=== PATIENT | female | born 1955 | race Two or more races ===

== ENCOUNTER 2024-09-30 11:46 | Inpatient (IN) | payer MEDICARE, MEDICAID, SELFPAY ==
[2024-09-30] VITALS (8 sets, daily range): BP systolic 121–147; BP diastolic 52–80; PULSE 66–90; RESP 15–100; TEMP 36.7–37.2; O2SAT 95–100; BMI 30.9; BMI 31.6
--- NOTE | 2024-09-30 12:07 | XR_ITS ---
Examination: Knee, right , 3 views Technique: Knee AP, lateral, oblique 3 views Date and time of exam: August 30, 2025 1213 hours Comparison July 16, 2023 INDICATIONS: Right knee pain 6 years. 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
--- NOTE | 2024-09-30 12:08 | PD.EDRME ---
Rapid Medical Screening Exam E Arrival date/time: 09/30/24 11:46 69-year-old female with a history of hypertension presents to the emergency room with a chief complaint of a wound to her right knee that is draining pus and very warm to the touch. Patient states that this has been going on for the last 3 days and has progressively gotten worse. Patient states she had a knee replacement done in 2018 to the area and this is her second episode in the last year that this has occurred. I have greeted and performed a focused initial assessment of this patient. A comprehensive ED assessment and evaluation of the patient, analysis of all test results, and completion of the medical decision making process will be conducted by additional ED providers. Chief Complaint: Skin/Abscess/Foreign Body Time Seen by Provider: 09/30/24 11:54 Vital signs: Vital Signs Temperature 98.4 F 09/30/24 12:00 Pulse Rate 70 09/30/24 12:00 Respiratory Rate 18 09/30/24 12:00 Blood Pressure 129/77 09/30/24 12:00 Pulse Oximetry (%) 98 09/30/24 12:00 Oxygen Delivery Method Room Air 09/30/24 12:00 Vital signs reviewed by provider: Yes
[2024-09-30 12:38] LABS: Lactate (Lactic Acid) 0.8 mMol/L (0.4-2.0)
[2024-09-30 12:40] LABS: Basophils % (Auto) 0 % (0-2.5); Eosinophils # (Auto) 0.2 Thou/mm3 (0.0-0.5); Eosinophils % (Auto) 1 % (0-10); Hematocrit 26.1 % (36.0-46.0); Immature Granulocytes % (Auto) 1 % (0-0); Immature Granulocytes Auto 0.11 Thou/mm3 (0.00-0.00); Lymphocytes # (Auto) 1.6 Thou/mm3 (1.0-4.8); Lymphocytes % (Auto) 8 % (10-50); Mean Corpuscular HGB Conc 31.4 g/dl (31.0-37.0); Mean Corpuscular Volume 89 fL (80-100); Monocytes # (Auto) 1.4 Thou/mm3 (0.0-0.8); Monocytes % (Auto) 7 % (0-12); Neutrophils # (Auto) 16.8 Thou/mm3 (1.8-7.7); Neutrophils % (Auto) 84 % (37-80); Nucleated Red Blood Cell % 0 /100 WBC (0); Platelet Count 408 Thou/mm3 (140-440); RDW Standard Deviation 43.9 fL (36.4-46.3); Red Blood Count 2.93 Miln/mm3 (4.00-5.20); White Blood Count 20.1 Thou/mm3 (3.6-11.0)
[2024-09-30 12:41] LABS: Hemoglobin 8.2 g/dL (12.0-16.0)
[2024-09-30] MEDS: CLINDAMYCIN/NS 600 MG IVPB 600 MG/50 ML BAG 100 MG IV (12:51)
[2024-09-30 13:07] LABS: Alanine Aminotransferase 20 U/L (10-49); Albumin, Serum 3.7 gm/dL (3.4-4.8); Albumin/Globulin Ratio 1.2 (1.2-2.2); Alkaline Phosphatase 126 U/L (46-116); Anion Gap 7 (7-16); Aspartate Amino Transferase 20 U/L (0-34); BUN/Creatinine Ratio 36 Ratio (12-20); Bilirubin,Total 0.2 mg/dL (0.3-1.2); Blood Urea Nitrogen 18 mg/dL (9-23); Calcium 9.5 mg/dL (8.3-10.6); Calcium (Corrected) 9.7 mg/dL (8.5-10.1); Carbon Dioxide 28.5 mMol/L (20.0-31.0); Chloride 107 mMol/L (98-107); Creatinine (Component) 0.5 mg/dL (0.6-1.3); Estimated Creatinine Clearance 92.5 mL/min (>60); Globulin 3.2 gm/dL (2.3-3.5); Glucose 96 mg/dL (74-106); Osmolality,Calculated 285 (275-295); Potassium 3.6 mMol/L (3.4-5.1); Procalcitonin 0.17 ng/ml (0.0-0.49); Sodium 142 mMol/L (136-145); Total Protein 6.9 gm/dL (5.7-8.2); eGFR > 60 See Note
--- NOTE | 2024-09-30 16:12 | PD.EDADULT ---
ED General RME/HPI General Chief complaint: Skin/Abscess/Foreign Body Stated complaint: sent by pmd for abscess to right knee Time Seen by Provider: 09/30/24 11:54 Arrival date/time: 09/30/24 11:46 CC: Redness pus and pain to the right knee HPI patient had a knee replaced [place] [address] Teresa, this is his second episode of an abscess on the knee in 6 months. The patient developed a pus pocket to the lateral aspect of the knee, today it is open and draining. Family members and patient deny fever but the pain is a 6 to an 8 on a 10 scale. Previous episode in April 2024 patient was seen by PCP started on antibiotics and after 3 weeks it spontaneously resolved. Patient's case discussed with Dr. Silva, resident for Dr. Goddard, agrees to accept the patient for admission. Dr Pascual will consult RME / HPI RME / HPI narrative: 09/30/24 11:46 69-year-old female with a history of hypertension presents to the emergency room with a chief complaint of a wound to her right knee that is draining pus and very warm to the touch. Patient states that this has been going on for the last 3 days and has progressively gotten worse. Patient states she had a knee replacement done in 2018 to the area and this is her second episode in the last year that this has occurred. I have greeted and performed a focused initial assessment of this patient. A comprehensive ED assessment and evaluation of the patient, analysis of all test results, and completion of the medical decision making process will be conducted by additional ED providers. Related Data Home Medications ?Medication ?Instructions ?Recorded ?Confirmed calcium carbonate (Calcium 600) 600 mg PO BID 04/18/18 03/01/23 methocarbamol 500 mg tablet 500 mg PO BID 04/18/18 03/01/23 clonidine HCl 0.1 mg tablet 0.1 mg PO BID 07/25/18 03/01/23 benazepril 20 mg tablet 20 mg PO BID 01/16/23 03/01/23 Previous Rx's ?Medication ?Instructions ?Recorded ibuprofen 800 mg tablet 800 mg PO Q8H PRN Pain 14 days #28 01/21/23 tabs Allergies Allergy/AdvReac Type Severity Reaction Status Date / Time No Known Allergies Allergy Verified 09/30/24 11:49 Review of Systems Review of Systems Narrative Review of Systems: GEN: No fever, no chills, no weight loss EYES: No discharge, no visual changes, no pain HEENT: No ear pain, no congestion, no sore throat PULM: No shortness of breath, no cough, no congestion CV: No chest pain, no dyspnea on exertion, no palpitations GI: No nausea, no vomiting, no diarrhea, no pain, no constipation : No frequency, no urgency, no dysuria MUSC/SKEL: No joint pain, no back pain SKIN: No rash PSYCH: No hallucinations, no depression HEME/LYMPH: No easy bleeding or bruising tendencies NEURO: No weakness, no headache Past Medical History Past Medical History NEUROLOGIC: Negative Neurological Disorders or Seizures CARDIAC: Positive Cardiac Disorders and Hypertension; Negative Hypercholesterolemia or Congestive Heart Failure RESPIRATORY: Negative Chronic Obstructive Pulmonary Disease (COPD) GASTROINTESTINAL: Positive Gastroesophageal Reflux Disease; Negative Gastrointestinal Disorders GENITOURINARY: Negative Genitourinary Disorders or Renal Disease REPRODUCTIVE: Positive Previous Pregnancies MUSCULOSKELETAL: Positive Musculoskeletal Disorders, Arthritis and Fractures ENDOCRINE: Negative Endocrine Disorders, Diabetes Mellitus Type 1 or Diabetes Mellitus Type 2 HEMATOLOGIC: Negative Blood Disorders OTHER HISTORY: Negative Autoimmune Disease, Blood Transfusions, Blood Transfusion Reaction or Anesthesia Reactions Family History FAMILY HISTORY: Positive Family Cardiac Disorders, Family Endocrine Disorders and Family Surgery; Negative Family Psychiatric Problems, Family Respiratory Disorders, Family Gastrointestinal Problems, Family Cancer or Family Anesthesia Reaction Surgical History SURGICAL: Positive Tubal Ligation and Section; Negative Cardiac Surgery Social History SMOKING STATUS: Never smoker ED Exam Narrative Physical exam: [General: Obese not in any acute distress Head normocephalic HEENT: Within acceptable limits Neck is supple nontender Chest equal chest rise nontender to palpation Respiratory: Clear to auscultation no wheezes crackles or rubs CV: Rate rhythm is regular no murmurs rubs or clicks Abdomen is distended secondary to body habitus soft nontender no masses positive bowel sounds all 4 quadrants Back: No CVA tenderness no spinous process tenderness from cervical spine thoracic and lumbar spine Skin: Right knee, lateral aspect there is a 1 cm diameter opening with expression was able to express 20+ cc of exudative serous fluid no bleeding. Surrounding area is not warm to touch erythema extends from the site distally to the ankle noncircumferential to the lower extremity. Otherwise skin is intact no petechiae rash induration ulceration or crepitus Extremities: Moving all extremity against resistance cap refill less than 2 seconds neurosensory intact. Good range of motion of the knee. Skin overlying the patella is not erythematous and nonedematous and not warm to touch. Neuro: Awake alert oriented x3 Glascow coma 15 no focal deficits] Course Course Course Narrative: Patient's case, laboratory results, clinical disposition, imaging discussed with Dr. Pascual, surgeon of the knee replacement, who agrees to consult on the patient he wants the patient admitted to the hospital started on antibiotics. Quality Measures none Orders Category Date Time Status Consult to Orthopedic Stat Cons 09/30/24 16:32 Ordered XR knee RT 3V Stat Exams 09/30/24 12:07 Completed Blood Culture (Lab) Stat Lab 09/30/24 12:18 Received Body Fld Culture & Gram Stain Stat Lab 09/30/24 16:35 Ordered CBC Stat Lab 09/30/24 12:24 Completed CMP [Comprehensive Metabolic Panel] Stat Lab 09/30/24 12:24 Completed Lactate (Lactic Acid) Stat Lab 09/30/24 12:24 Completed MRSA Nasal Screen Stat Lab 09/30/24 17:10 Received PT [Prothrombin Time with INR] Stat Lab 09/30/24 12:24 Completed PTT [Partial Thromboplastin Time] Stat Lab 09/30/24 12:24 Completed Procalcitonin Stat Lab 09/30/24 12:24 Completed Wound Culture and Gram Stain Stat Lab 09/30/24 17:10 Received Clindamycin/Ns 600 mg Ivpb [Cleocin/Ns Ivpb] Med 09/30/24 12:10 Discontinued 600 mg in 50 ml IV X1 Piper/Tazo Inj [Zosyn Inj] 3.375 gm Med 09/30/24 16:35 Discontinued Sodium Chloride 0.9% (P) [Ns 0.9% (P)] 50 ml IV X1 Vital Signs Vital signs: Vital Signs Temperature 98.4 F 09/30/24 12:00 Pulse Rate 70 09/30/24 12:00 Respiratory Rate 18 09/30/24 12:00 Blood Pressure 129/77 09/30/24 12:00 Pulse Oximetry (%) 98 09/30/24 12:00 Oxygen Delivery Method Room Air 09/30/24 12:00 [facility] Patient data External records reviewed:: [facility] previous records Clinical information provided by:: patient and family Social determinants that could affect healthcare access:: none Patient has the following chronic illnesses:: None How is presenting disease/condition affected by chronic disease/condition?: uneffected by Evaluation data The following diagnostics were reviewed and interpreted by me:: lab results and radiology exam(s) Lab and/or radiology exams considered but not ordered:: CBC shows leukocytosis 20,100 H&H of 8.2 26.1 with platelets of 408 CMP shows a sodium 142 potassium 3.6 chloride 107 CO2 of 28.5 BUN of 18 creatinine 0.5 with a glucose of 96 Lactic is 0.8 Pro-Tyler of 0.17. X-ray of the knee as interpreted by me read by radiology shows internal loosening of the femoral condyle prosthesis. Lactic and Pro-Tyler are unremarkable Interpretation Summary: Knee abscess knee cellulitis Medications Medications considered but not ordered:: None Medication administrations:: Medication Administration History Acetaminophen (Acetaminophen 325 Mg Tablet) 650 mg PO Q6H PRN PRN Reason: pain and Fever >100.4 Stop: 10/30/24 17:03 Hydrocodone Bitart/Acetaminophen (Hydrocodone/Apap 5/325 Tablet) 1 tab PO Q4HR PRN PRN Reason: PAIN SCALE 4-10(Mod-Sev Stop: 10/05/24 17:03 Last Admin: 09/30/24 17:58 Dose: 1 tab Documented By: GM Heparin Sodium (Porcine) (Heparin Sod Inj 5000 Unit/Ml Vial) 5,000 unit SC Q8HR [facility] Stop: 10/14/24 21:59 Piperacillin/Tazobactam/Dextrose (Zosyn) 50 mls @ 12.5 mls/hr IV Q8HR [facility] Stop: 10/07/24 21:59 Losartan Potassium (Losartan Potassium 25 Mg Tablet) 25 mg PO QDAY [facility] Stop: 10/30/24 18:14 Last Admin: 09/30/24 18:16 Dose: 25 mg Documented By: GM Ondansetron HCl (Ondansetron Inj 2 Mg/Ml Inj 2 Ml) 4 mg IV Q6H PRN; Protocol PRN Reason: NAUSEA OR VOMITING Stop: 10/30/24 17:03 Pharmacy Consult (Vancomycin Pharmacy To Dose 1 Each Each) 1 each IV QDAY [facility] Stop: 10/30/24 17:14 Sennosides (Senna Tablet) 1 tab PO QDAY PRN; Protocol PRN Reason: constipation Stop: 10/30/24 17:03 Discontinued Medications Clindamycin/Sodium Chloride (Cleocin/Ns Ivpb) 600 mg in 50 mls @ 100 mls/hr IV X1 ONE Stop: 09/30/24 12:39 Last Infusion: 09/30/24 16:09 Dose: Infused Documented By: Admin: 09/30/24 12:51 Dose: 100 mls/hr Documented By: ROSEMARIE Piperacillin Sod/Tazobactam (Sod 3.375 gm/ Sodium Chloride) 50 mls @ 100 mls/hr IV X1 ONE Stop: 09/30/24 17:04 Last Infusion: 09/30/24 18:00 Dose: Infused Documented By: Admin: 09/30/24 17:06 Dose: 100 mls/hr Documented By: REGGIE Vancomycin HCl 1,500 mg/ (Sodium Chloride) 500 mls @ 200 mls/hr IV X1 ONE Stop: 09/30/24 20:14 Last Admin: 09/30/24 21:08 Dose: 10 mg/min, 200 mls/hr Documented By: Morphine Sulfate (Morphine Sulf Inj 10 Mg/Ml Vial) 1 mg IVP X1 ONE Stop: 09/30/24 19:42 None Consultations Consultation(s) initiated? (list below): No Diagnosis Differential Diagnosis ED Complaint MDM: Septic arthritis knee abscess knee cellulitis Most likely diagnosis given after review of the tests above:: Knee abscess knee cellulitis Admission Indicated Admission indicated?: indicated Explain why admission is indicated or not indicated:: Further medical management Admission Request Was there a request for admission?: No Disposition Plan Disposition Plan: Admit Medical Decision Making Differential Diagnosis Differential Diagnosis: Septic arthritis knee abscess knee cellulitis Lab Data 09/30/24 12:24 09/30/24 12:24 Labs: Lab Results 09/30/24 Range/Units 12:24 WBC 20.1 H (3.6-11.0) Thou/mm3 RBC 2.93 L (4.00-5.20) Miln/mm3 Hgb 8.2 L (12.0-16.0) g/dL Hct 26.1 L (36.0-46.0) % MCV 89 (80-100) fL MCH 28.0 (25.0-35.0) pg MCHC 31.4 (31.0-37.0) g/dl RDW Std Deviation 43.9 (36.4-46.3) fL Plt Count 408 (140-440) Thou/mm3 Neut % (Auto) 84 H (37-80) % Lymph % (Auto) 8 L (10-50) % [place] % (Auto) 7 (0-12) % Eos % (Auto) 1 (0-10) % Baso % (Auto) 0 (0-2.5) % Neut # (Auto) 16.8 H (1.8-7.7) Thou/mm3 Lymph # (Auto) 1.6 (1.0-4.8) Thou/mm3 [place] # (Auto) 1.4 H (0.0-0.8) Thou/mm3 Eos # (Auto) 0.2 (0.0-0.5) Thou/mm3 Baso # (Auto) 0.0 (0.0-0.2) Thou/mm3 Immature Gran # (Auto) 0.11 H (0.00-0.00) Thou/mm3 Absolute Nucleated RBC 0.00 (0.00-0.00) Thou/mm3 Immature Gran % 1 H (0-0) % Nucleated RBC % 0 (0) /100 WBC PT 11.1 (9.0-12.2) Seconds INR 1.0 (0.9-1.3) APTT 30.6 (22.0-36.0) Seconds Sodium 142 (136-145) mMol/L Potassium 3.6 (3.4-5.1) mMol/L Chloride 107 (98-107) mMol/L Carbon Dioxide 28.5 (20.0-31.0) mMol/L Anion Gap 7 (7-16) BUN 18 (9-23) mg/dL Creatinine 0.5 L (0.6-1.3) mg/dL Estim Creat Clear Calc 92.5 (>60) mL/min eGFR > 60 (60 - ) See Note BUN/Creatinine Ratio 36 H (12-20) Ratio Glucose 96 (74-106) mg/dL Calculated Osmolality 285 (275-295) Lactic Acid 0.8 (0.4-2.0) mMol/L Calcium 9.5 (8.3-10.6) mg/dL Corrected Calcium 9.7 (8.5-10.1) mg/dL Total Bilirubin 0.2 L (0.3-1.2) mg/dL AST 20 (0-34) U/L ALT 20 (10-49) U/L Alkaline Phosphatase 126 H (46-116) U/L Total Protein 6.9 (5.7-8.2) gm/dL Albumin 3.7 (3.4-4.8) gm/dL Globulin 3.2 (2.3-3.5) gm/dL Albumin/Globulin Ratio 1.2 (1.2-2.2) Procalcitonin 0.17 (0.0-0.49) ng/ml Discharge Plan Plan Patient Disposition: Admit Acute Care w/in Hospital Problem List Clinical Impression: Abscess of knee, left PA/LITHOGRAPHIC PRESS OPERATOR Supervising Physician PA/LITHOGRAPHIC PRESS OPERATOR Supervising Physician: Marvin Phan ENP
[2024-09-30 16:55] LABS: Partial Thromboplastin Time 30.6 Seconds (22.0-36.0); Prothrombin Time 11.1 Seconds (9.0-12.2)
[2024-09-30] MEDS: PIPER/TAZO INJ 3.375 GM in SODIUM CHLORIDE 0.9% (P) 50 ML IV (17:06)
--- NOTE | 2024-09-30 17:11 | ESHP_ITS ---
Documentation for date of: 09/30/24 HPI History of Present Illness Chief complaint: R knee pain, swelling, discharge History of present illness: 69-year-old female with past medical history of prior right knee replacement, hypertension, arthritis, ventral hernias, and chronic anemia is admitted to the hospital on 09/30/2024 after coming to the ED with complaints of right knee pain as well as swelling and draining pus. On assessment patient stated that her right knee began to hurt around 24 September and since then it has gotten very swollen and red. On Sunday she noticed that it created like an abscess as it was more swollen on the lateral aspect and yesterday the abscess popped and started draining thick yellowish-reddish fluid. She denied any trauma during this time or even prior to this. She saw her primary care physician today who recommended her to come to the ED. Patient also mentioned that she had 1 prior episode similar to this in April of last year and at this time she was prescribed antibiotics by her primary care physician and the abscess resolved in 3 weeks. She endorses some chills which were due to cold, but denied any fevers, cough, shortness of breath, sweats, or chest pain. Of note, patient stated that ever since she got right knee replacement 2018 that she has not been able to walk normally that she thinks something is wrong for her knee. ED course: Initially was afebrile and normotensive. Initial labs were relevant for leukocytosis (20.1) and anemia (8.2). 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 ED physician consulted orthopedic surgeon who stated he would see the patient. PMH: As above Social Hx: Denies any alcohol, smoking, or drugs Surgical Hx: Right knee replacement Review of Systems Review of Systems Narrative Review of Systems: Constitutional: Denies sweats, Denies weight loss/gain, Denies fever, Admits chills. HEENT: Denies hearing loss, Denies ear pain, Denies postnasal drip, Denies double vision, Denies blurry vision. Respiratory: Denies shortness of breath, Denies cough, Denies wheezing. Cardiovascular: Denies chest pain, Denies palpitations, Denies sudden loss of consciousness. GI: Denies blood in stool, Denies constipation, Denies abdominal pain, Denies difficulty swallowing, Denies nausea or vomit. : Denies urinary incontinence, Denies pain while urinating, Denies increased urinary frequency. MSK: Admits joint pain, Admits joint swelling, Denies numbness. Skin: Denies rash, Denies itching, Denies easy bruising. Neuro: Denies headaches, Denies dizziness, Denies seizures. Past Medical History Past Medical History NEUROLOGIC: Negative Neurological Disorders or Seizures CARDIAC: Positive Cardiac Disorders and Hypertension; Negative Hypercholesterolemia or Congestive Heart Failure RESPIRATORY: Negative Chronic Obstructive Pulmonary Disease (COPD) GASTROINTESTINAL: Positive Gastroesophageal Reflux Disease; Negative Gastrointestinal Disorders GENITOURINARY: Negative Genitourinary Disorders or Renal Disease REPRODUCTIVE: Positive Previous Pregnancies MUSCULOSKELETAL: Positive Musculoskeletal Disorders, Arthritis and Fractures ENDOCRINE: Negative Endocrine Disorders, Diabetes Mellitus Type 1 or Diabetes Mellitus Type 2 HEMATOLOGIC: Negative Blood Disorders OTHER HISTORY: Negative Autoimmune Disease, Blood Transfusions, Blood Transfusion Reaction or Anesthesia Reactions Family History FAMILY HISTORY: Positive Family Cardiac Disorders, Family Endocrine Disorders and Family Surgery; Negative Family Psychiatric Problems, Family Respiratory Disorders, Family Gastrointestinal Problems, Family Cancer or Family Anesthesia Reaction Surgical History SURGICAL: Positive Tubal Ligation and Section; Negative Cardiac Surgery Social History SMOKING STATUS: Never smoker Exam Vital Signs Temp Pulse Resp BP Pulse Ox O2 Del Method 98.9 F 66 16 138/80 H 100 Room Air 09/30/24 15:47 09/30/24 15:47 09/30/24 15:47 09/30/24 15:47 09/30/24 15:47 09/30/24 15:47 Narrative Exam General: A/O x3, no acute distress, well-nourished, well-developed Eyes: PERRL, EOMI. Anicteric, vision grossly intact. Ears: No ear pain, no ear discharge, Hearing grossly intact. Nose: No nasal discharge. Mouth/Throat: Dry mucous membranes, no redness, no lesions. Neck: Neck supple, non-tender, no cervical lymphadenopathy. Lungs: Clear VARUN to auscultation and percussion, No accessory muscle use. Cardio: Normal S1/S2, regular rhythm, systolic murmur, no JVD Abdomen: Soft, non-tender, no palpable masses, peristalsis present, no guarding or rebound. Extremities: Symmetrical, no significant deformities, no peripheral edema , RLE tender to touch, peripheral pulses presents. R LE swollen from lower thigh to lower calf area. R LE warm to touch, open wound with serosangineous drainage in Lateral aspect of knee around 1 cm in diameter. Skin: No rashes, no lesions, warm to touch. Neuro: No focal neurological deficits. motor and sensory intact Psych: Cooperative, appropriate mood and effect. Results: Labs 09/30/24 12:24 09/30/24 12:24 Labs: Short CBC 09/30/24 Range/Units 12:24 WBC 20.1 H (3.6-11.0) Thou/mm3 Hgb 8.2 L (12.0-16.0) g/dL Hct 26.1 L (36.0-46.0) % Plt Count 408 (140-440) Thou/mm3 BMP 09/30/24 12:24 Sodium 142 Potassium 3.6 Chloride 107 Carbon Dioxide 28.5 BUN 18 Creatinine 0.5 L Glucose 96 Calcium 9.5 Liver Function 09/30/24 Range/Units 12:24 Total Bilirubin 0.2 L (0.3-1.2) mg/dL AST 20 (0-34) U/L ALT 20 (10-49) U/L Alkaline Phosphatase 126 H (46-116) U/L Albumin 3.7 (3.4-4.8) gm/dL Quality Measures Quality Measures VTE prophylaxis Advance care planning discussed with:: patient Medications Home Medications and Allergies Home Medications ?Medication ?Instructions ?Recorded ?Confirmed ?Type calcium carbonate (Calcium 600) 600 mg PO BID 04/18/18 03/01/23 History methocarbamol 500 mg tablet 500 mg PO BID 04/18/18 03/01/23 History clonidine HCl 0.1 mg tablet 0.1 mg PO BID 07/25/18 03/01/23 History benazepril 20 mg tablet 20 mg PO BID 01/16/23 03/01/23 History Allergies Allergy/AdvReac Type Severity Reaction Status Date / Time No Known Allergies Allergy Verified 09/30/24 11:49 Visit Medications Acetaminophen (Acetaminophen 325 Mg Tablet) 650 mg PO Q6H PRN PRN Reason: pain and Fever >100.4 Stop: 10/30/24 17:03 Hydrocodone Bitart/Acetaminophen (Hydrocodone/Apap 5/325 Tablet) 1 tab PO Q4HR PRN PRN Reason: PAIN SCALE 4-10(Mod-Sev Stop: 10/05/24 17:03 Heparin Sodium (Porcine) (Heparin Sod Inj 5000 Unit/Ml Vial) 5,000 unit SC Q8HR OPAL Stop: 10/14/24 21:59 Piperacillin Sod/Tazobactam (Sod 4.5 gm/ Sodium Chloride) 100 mls @ 200 mls/hr IV Q6H [facility] Stop: 10/07/24 21:59 Ondansetron HCl (Ondansetron Inj 2 Mg/Ml Inj 2 Ml) 4 mg IV Q6H PRN; Protocol PRN Reason: NAUSEA OR VOMITING Stop: 10/30/24 17:03 Pharmacy Consult (Vancomycin Pharmacy To Dose 1 Each Each) 1 each IV QDAY OPAL Stop: 10/30/24 17:14 Sennosides (Senna Tablet) 1 tab PO QDAY PRN; Protocol PRN Reason: constipation Stop: 10/30/24 17:03 Discontinued Medications Clindamycin/Sodium Chloride (Cleocin/Ns Ivpb) 600 mg in 50 mls @ 100 mls/hr IV X1 ONE Stop: 09/30/24 12:39 Last Infusion: 09/30/24 16:09 Dose: Infused Piperacillin Sod/Tazobactam (Sod 3.375 gm/ Sodium Chloride) 50 mls @ 100 mls/hr IV X1 ONE Stop: 09/30/24 17:04 Last Admin: 09/30/24 17:06 Dose: 100 mls/hr Assessment & Plan Plan 69-year-old female with past medical history of prior right knee replacement, hypertension, arthritis, ventral hernias, and chronic anemia is admitted to the hospital on 09/30/2024 for R knee abscess. #Right knee abscess #Leukocytosis #History of right knee replacement ? Initially patient started having pain around 24 September and then she developed swelling as well as drainage of thick yellowish fluid. ?Patient had prior total knee replacement in 2017 which could indicate that there could be bacterial seeding in the metal artifacts. ? Prior episode of abscess in April, was prescribed oral antibiotics and resolved in 3 weeks. ? WBC 20.1 at admission ? Lactic acid 0.7 ? 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 Started vancomycin and Zosyn [09/30/2024?] ? Blood cultures and wound cultures ordered ? Wound care ordered ?Patient will be n.p.o. after midnight in case of procedure ? Orthopedic surgeon consulted, appreciate recommendations #Chronic normocytic normochromic anemia ?Patient has baseline hemoglobin of around 10. ?Per patient she takes iron due to anemia ? Hemoglobin this admission is 8.2 ?no active signs of bleeding. Plan: ? Will transfuse hemoglobin less than 7 ? Will continue to monitor #Hx of hypertension ? Patient's blood pressure on admission is 129/77 ? Current blood pressure is 147/72 ? Patient takes clonidine 0.1 mg at home Plan: ? Start patient on losartan 25 mg daily ?Will monitor for rebound hypertension and if it does develop we will restart patient's clonidine ? Will continue to monitor Disposition: Patient admitted to [facility]. Diet: NPO midnight GI prophylaxis: not indicated DVT prophylaxis: heparin sc Code:Full Case disclosed with Attending Dr. Goddard and My senior Dr. Silva PGY2. Abram Thorne PGY1 Senior Resident Attestation: The patient is a 69 YO F with PMH of Rt knee replacement in [address] Braun in [facility], HTN, ventral hernias and chronic anemia presented with c/c of rt knee pus drainage. She had similar episode 6 months back and was treated with oral antibiotics by her PCP. In the ED BCx and Pus Cx were sent. She was started on vanc and zosyn, and Ortho Dr. Braun will be consulted. I discussed with and supervised the internal medicine nurse practitioner physician involved in the care of this patient. I personally saw and examined the patient and discussed the assessment and plan with the entire medicine team, including my attending. I agree with the assessment and plan as documented above. Roger Silva MD PGY2 Internal Medicine Attending Provider Attestation/Addendum I reviewed labs, imaging, EKG, home medications and prior available records. Face to face evaluation was performed by me. I have personally examined the patient and discussed assessment and plan with the IM team. I reviewed the resident note and agree with the plan with exceptions as below. Right knee septic arthritis Right lower extremity cellulitis Leukocytosis History of right knee replacement Primary hypertension Start vancomycin and Zosyn N.p.o. after midnight for I&D and possible removal of the artificial joint Consulted orthopedic surgery Dr. Braun Management of pain as needed
--- NOTE | 2024-09-30 17:19 | PC.NURSE ---
PT GIVEN TURKEY SANDWICH AND APPLE JUICE AND WATER AT THIS TIME; PT NPO AFTER MIDNIGHT.
--- NOTE | 2024-09-30 17:20 | PC.NURSE ---
Kina called and made aware pt's vancomycin med order is not available in ED pyxis. Per pharmacy, will bring down med soon.
[2024-09-30] MEDS: HYDROcodone/APAP 5/325 TABLET 1 TAB PO (17:58)
--- NOTE | 2024-09-30 18:05 | PC.NURSE ---
Attempted to call report for SBAR report to Livier CANTOR; Livier CANTOR unavailable at this time.
[2024-09-30] MEDS: LOSARTAN POTASSIUM 25 MG TABLET PO (18:16)
--- NOTE | 2024-09-30 18:30 | PC.NURSE ---
Received Hand off Report from ED nurse Sagar at 18:15. Received in report that pt did not receive the ordered Vancomycin due to it not being available in the ED.
[2024-09-30] MEDS: Vancomycin Inj 1,500 MG in SODIUM CHLORIDE 0.9% 500 ML 500 ML 200 MG IV (21:08)
[2024-09-30] MEDS: HEPARIN SOD INJ 5000 UNIT/ML VIAL SC (22:52)
[2024-09-30] MEDS: MORPHINE SULF INJ 10 MG/ML VIAL IVP (22:59)
[2024-09-30] MEDS: PIPER/TAZO 3.375 GM 50 ML IV (23:22)
[2024-10-01] VITALS (9 sets, daily range): BP systolic 102–163; BP diastolic 67–90; PULSE 68–78; RESP 16–98; TEMP 36.3–38.1; O2SAT 93–99
[2024-10-01] MEDS: HYDROcodone/APAP 5/325 TABLET 1 TAB PO ×2 (00:01→11:12)
[2024-10-01] MEDS: PIPER/TAZO 3.375 GM 50 ML IV ×3 (05:18→22:47)
[2024-10-01 05:57] LABS: Basophils # (Auto) 0.1 Thou/mm3 (0.0-0.2); Basophils % (Auto) 0 % (0-2.5); Eosinophils # (Auto) 0.2 Thou/mm3 (0.0-0.5); Eosinophils % (Auto) 2 % (0-10); Hematocrit 22.5 % (36.0-46.0); Immature Granulocytes % (Auto) 1 % (0-0); Immature Granulocytes Auto 0.08 Thou/mm3 (0.00-0.00); Lymphocytes # (Auto) 1.7 Thou/mm3 (1.0-4.8); Lymphocytes % (Auto) 13 % (10-50); Mean Corpuscular HGB Conc 31.1 g/dl (31.0-37.0); Mean Corpuscular Hemoglobin 27.3 pg (25.0-35.0); Mean Corpuscular Volume 88 fL (80-100); Monocytes % (Auto) 8 % (0-12); Neutrophils # (Auto) 10.3 Thou/mm3 (1.8-7.7); Neutrophils % (Auto) 77 % (37-80); Nucleated Red Blood Cell % 0 /100 WBC (0); Platelet Count 376 Thou/mm3 (140-440); RDW Standard Deviation 44.1 fL (36.4-46.3); Red Blood Count 2.56 Miln/mm3 (4.00-5.20); White Blood Count 13.4 Thou/mm3 (3.6-11.0)
[2024-10-01 06:56] LABS: Alanine Aminotransferase 14 U/L (10-49); Albumin, Serum 3.2 gm/dL (3.4-4.8); Albumin/Globulin Ratio 1.2 (1.2-2.2); Alkaline Phosphatase 94 U/L (46-116); Anion Gap 7 (7-16); BUN/Creatinine Ratio 28 Ratio (12-20); Bilirubin,Total 0.4 mg/dL (0.3-1.2); Blood Urea Nitrogen 14 mg/dL (9-23); Calcium 8.7 mg/dL (8.3-10.6); Calcium (Corrected) 9.3 mg/dL (8.5-10.1); Carbon Dioxide 26.7 mMol/L (20.0-31.0); Chloride 106 mMol/L (98-107); Creatinine (Component) 0.5 mg/dL (0.6-1.3); Estimated Creatinine Clearance 93.7 mL/min (>60); Globulin 2.7 gm/dL (2.3-3.5); Glucose 79 mg/dL (74-106); Magnesium 1.7 mg/dL (1.6-2.6); Osmolality,Calculated 278 (275-295); Phosphorous 2.8 mg/dL (2.4-5.1); Potassium 3.8 mMol/L (3.4-5.1); Sodium 140 mMol/L (136-145); Total Protein 5.9 gm/dL (5.7-8.2); eGFR > 60 See Note
[2024-10-01 08:51] LABS: Aspartate Amino Transferase 13 U/L (0-34)
[2024-10-01] MEDS: LOSARTAN POTASSIUM 25 MG TABLET PO (09:16)
[2024-10-01 09:31] LABS: Hematocrit 22.7 % (36.0-46.0)
[2024-10-01 09:34] LABS: Hemoglobin 7.2 g/dL (12.0-16.0)
--- NOTE | 2024-10-01 09:56 | XR_ITS ---
Examination: CT right knee with intravenous contrast,. 2-D sagittal reconstructions. 2-D coronal reconstructions. 3-D reconstructions. Date and time of exam:October 01, 2024 1633 hours INDICATIONS: Right knee swelling and pain this week CTDI: vol (mGy):8.45 DLP: (mGycm):280 Technique: Multiple 1.25 mm axial sections of the right knee with intravenous contrast, 60 cc Isovue-370 have been obtained. 2-D sagittal and coronal reconstructions have been obtained. 3-D reconstructions have been obtained. Low dose protocols were performed. One or more of the following dose reduction techniques were used; automated exposure control, adjustment of the mA and/or KV according to patient size, use of iterative reconstruction technique. Findings: Artifact from the patient's arthroplasty is significant Prominent osteopenia No fracture involving the femur tibia or fibula Small knee effusion Air density and soft tissue prominence anterior to the upper tibia on the lateral side with adjacent skin thickening IMPRESSION: Significant artifact from the patient's arthroplasty Suggest ultrasound soft tissue knee to best assess for soft tissue abscess, given the above artifacts
[2024-10-01] MEDS: VANCOMYCIN/NS 1 GM IVPB 200 ML IV ×2 (10:21→22:48)
--- NOTE | 2024-10-01 14:18 | ESPR_ITS ---
<Statement entered by Ike Corral MD - 10/01/24 21:34> Patient examined bedside this morning with the help of form carpenter, she is still having pus . N.p.o. after midnight Dr. Braun is planning to take her to OR tomorrow . I discussed with and supervised my co-resident involved in the care of this patient. I agree with the assessment and plan as documented above. Ike Corral,PGY-3 Disclaimer: Despite multiple revisions, due to the dictation software being used, the document below may not be free of grammatical errors including phonetic/typographic errors. However, this does not deter from our commitment to providing health care in the patient's best interest in mind. Documentation for date of: 10/01/24 Subjective Subjective Interval history: Patient was seen at bedside this morning. No overnight events. Patient was resting in bed in her right knee abscess is still having some purulent drainage. Spoke with orthopedic surgeon who stated that he will see the patient today and to do a CT of the right knee and to place patient n.p.o. after midnight for possible surgical intervention tomorrow. No other complaints at this time. Exam Vital Signs Temp Pulse Resp BP Pulse Ox O2 Del Method O2 Flow Rate 100.5 F H 70 16 141/70 H 98 Nasal Cannula 2 10/01/24 12:00 10/01/24 12:00 10/01/24 12:00 10/01/24 12:00 10/01/24 12:00 10/01/24 12:00 10/01/24 12:00 Narrative Exam General: A/O x3, no acute distress, well-nourished, well-developed Eyes: PERRL, EOMI. Anicteric, vision grossly intact. Ears: No ear pain, no ear discharge, Hearing grossly intact. Nose: No nasal discharge. Mouth/Throat: Dry mucous membranes, no redness, no lesions. Neck: Neck supple, non-tender, no cervical lymphadenopathy. Lungs: Clear VARUN to auscultation and percussion, No accessory muscle use. Cardio: Normal S1/S2, regular rhythm, systolic murmur, no JVD Abdomen: Soft, non-tender, no palpable masses, peristalsis present, no guarding or rebound. Extremities: Symmetrical, no significant deformities, no peripheral edema , RLE tender to touch, peripheral pulses presents. R LE swelling improved, but with purulent drainage Skin: No rashes, no lesions, warm to touch. Neuro: No focal neurological deficits. motor and sensory intact Psych: Cooperative, appropriate mood and effect. Objective Labs 10/02/24 04:36 10/02/24 04:36 Labs: Laboratory Results - last 24 hr 09/30/24 10/01/24 10/01/24 12:24 05:20 09:11 WBC 13.4 H D RBC 2.56 L Hgb 7.0 L 7.2 L Hct 22.5 L 22.7 L MCV 88 MCH 27.3 MCHC 31.1 RDW Std Deviation 44.1 Plt Count 376 D Neut % (Auto) 77 Lymph % (Auto) 13 [place] % (Auto) 8 Eos % (Auto) 2 Baso % (Auto) 0 Neut # (Auto) 10.3 H Lymph # (Auto) 1.7 [place] # (Auto) 1.0 H Eos # (Auto) 0.2 Baso # (Auto) 0.1 Immature Gran # (Auto) 0.08 H Absolute Nucleated RBC 0.00 Immature Gran % 1 H Nucleated RBC % 0 PT 11.1 INR 1.0 APTT 30.6 Sodium 140 Potassium 3.8 Chloride 106 Carbon Dioxide 26.7 Anion Gap 7 BUN 14 Creatinine 0.5 L Estim Creat Clear Calc 93.7 eGFR > 60 BUN/Creatinine Ratio 28 H Glucose 79 Calculated Osmolality 278 Calcium 8.7 Corrected Calcium 9.3 Phosphorus 2.8 Magnesium 1.7 Total Bilirubin 0.4 AST 13 ALT 14 Alkaline Phosphatase 94 D Total Protein 5.9 Albumin 3.2 L D Globulin 2.7 Albumin/Globulin Ratio 1.2 Quality Measures Quality Measures none Advance care planning discussed with:: patient Assessment & Plan Assessment Current Active Medications: Generic Name Dose Route Start Last Admin Trade Name Freq PRN Reason Stop Dose Admin Acetaminophen 650 mg 09/30/24 17:04 Acetaminophen 325 Mg Tablet PO 10/30/24 17:03 Q6H PRN pain and Fever >100.4 Hydrocodone Bitart/Acetaminophen 1 tab 09/30/24 17:04 10/01/24 11:12 Hydrocodone/Apap 5/325 Tablet PO 10/05/24 17:03 1 tab Q4HR PRN Administration PAIN SCALE 4-10(Mod-Sev Heparin Sodium (Porcine) 5,000 unit 09/30/24 22:00 10/01/24 06:21 Heparin Sod Inj 5000 Unit/Ml Vial SC 10/14/24 21:59 Not Given Q8HR OPAL Piperacillin/Tazobactam/Dextrose 50 mls @ 12.5 mls/hr 09/30/24 22:00 10/01/24 05:18 Zosyn IV 10/07/24 21:59 12.5 mls/hr Q8HR OPAL Administration Vancomycin/Sodium Chloride 200 mls @ 120 mls/hr 10/01/24 10:00 10/01/24 10:21 Vancomycin/Ns 1 Gm Ivpb IV 10/08/24 09:59 120 mls/hr BID@1000,2200 OPAL Administration Protocol Losartan Potassium 25 mg 09/30/24 18:15 10/01/24 09:16 Losartan Potassium 25 Mg Tablet PO 10/30/24 18:14 25 mg QDAY OPAL Administration Ondansetron HCl 4 mg 09/30/24 17:04 Ondansetron Inj 2 Mg/Ml Inj 2 Ml IV 10/30/24 17:03 Q6H PRN NAUSEA OR VOMITING Protocol Pharmacy Consult 1 each 10/01/24 09:12 Vancomycin Pharmacy To Dose 1 Each Each IV 10/30/24 17:14 QDAY PRN PROTOCOL Sennosides 1 tab 09/30/24 17:04 Senna Tablet PO 10/30/24 17:03 QDAY PRN constipation Protocol Plan 69-year-old female with past medical history of prior right knee replacement, hypertension, arthritis, ventral hernias, and chronic anemia is admitted to the hospital on 09/30/2024 for R knee abscess. #Right knee abscess #Leukocytosis #History of right knee replacement ? Initially patient started having pain around 24 September and then she developed swelling as well as drainage of thick yellowish fluid. ?Patient had prior total knee replacement in 2018 which could indicate that there could be bacterial seeding in the metal artifacts. ? Prior episode of abscess in April, was prescribed oral antibiotics and resolved in 3 weeks. ? WBC 20.1 at admission ? Lactic acid 0.7 ? 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 Continue vancomycin and Zosyn [09/30/2024?] ? Blood cultures and wound cultures ordered ? Wound care ordered ?Patient will be n.p.o. after midnight -CT knee ordered ? Orthopedic surgeon consulted, appreciate recommendations #Chronic normocytic normochromic anemia ?Patient has baseline hemoglobin of around 10. ?Per patient she takes iron due to anemia ? Hemoglobin this admission is 8.2 -Hgb today 7 and 7.2 on repeat ?no active signs of bleeding. Plan: ? Will transfuse hemoglobin less than 7 -Type and screen ordered -PRBC ready in case of need of transfusion ? Will continue to monitor #Hx of hypertension ? Patient's blood pressure on admission is 129/77 ? Patient takes clonidine 0.1 mg at home Plan: ? Continue patient on losartan 25 mg daily ?Will monitor for rebound hypertension and if it does develop we will restart patient's clonidine ? Will continue to monitor Disposition: Patient pending ortho recs Diet: NPO midnight GI prophylaxis: not indicated DVT prophylaxis: heparin sc Code:Full Case disclosed with Attending Dr. Chamberlain and My senior Dr. Corral PGY3. Abram Thorne PGY1 Attending Provider Attestation/Addendum I have examined the patient, reviewed labs and imaging findings, discussed the case with the resident(s), and reviewed entered orders. I agree with the plan of care as outlined in this note, with these additional summaries/recommendations: Patient seen at bedside. No acute overnight events. Patient reports her pain is controlled today and continues to have purulent discharge from right knee. Patient admitted for likely septic arthritis in the setting of previous knee replacement. 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 Orthopedics was consulted. CT right knee ordered. Patient reports she had a similar knee infection in the past and has been unable to ambulate regularly. Appreciate Ortho recs on if hardware needs to be removed. Continue IV antibiotics. Blood cultures show no growth at 24 hours and right knee culture pending. Continue home antihypertensives and pain management. Patient and daughter updated at bedside in agreement. Repeat chemistry and hematology panel in AM. Dr. Chamberlain
[2024-10-01] MEDS: HEPARIN SOD INJ 5000 UNIT/ML VIAL SC (22:47)
[2024-10-02] VITALS (16 sets, daily range): BP systolic 110–150; BP diastolic 67–83; PULSE 57–82; RESP 15–22; TEMP 35.6–37.1; O2SAT 94–100
[2024-10-02 06:05] LABS: Basophils % (Auto) 0 % (0-2.5); Eosinophils # (Auto) 0.1 Thou/mm3 (0.0-0.5); Eosinophils % (Auto) 1 % (0-10); Immature Granulocytes % (Auto) 1 % (0-0); Immature Granulocytes Auto 0.07 Thou/mm3 (0.00-0.00); Lymphocytes # (Auto) 1.4 Thou/mm3 (1.0-4.8); Lymphocytes % (Auto) 13 % (10-50); Mean Corpuscular HGB Conc 31.9 g/dl (31.0-37.0); Mean Corpuscular Hemoglobin 27.4 pg (25.0-35.0); Mean Corpuscular Volume 86 fL (80-100); Monocytes # (Auto) 1.1 Thou/mm3 (0.0-0.8); Monocytes % (Auto) 10 % (0-12); Neutrophils % (Auto) 74 % (37-80); Nucleated Red Blood Cell % 0 /100 WBC (0); Platelet Count 440 Thou/mm3 (140-440); Red Blood Count 3.03 Miln/mm3 (4.00-5.20); White Blood Count 10.8 Thou/mm3 (3.6-11.0)
[2024-10-02 06:21] LABS: Hemoglobin 8.3 g/dL (12.0-16.0)
--- NOTE | 2024-10-02 06:22 | PC.NURSE ---
Accessed pt's chart to give 0600 am meds to pt helping betsy RN.
[2024-10-02] MEDS: HEPARIN SOD INJ 5000 UNIT/ML VIAL SC ×2 (06:24→21:30)
[2024-10-02] MEDS: PIPER/TAZO 3.375 GM 50 ML IV ×2 (06:24→21:18)
[2024-10-02 06:36] LABS: Alanine Aminotransferase 18 U/L (10-49); Albumin, Serum 3.6 gm/dL (3.4-4.8); Albumin/Globulin Ratio 1.2 (1.2-2.2); Alkaline Phosphatase 107 U/L (46-116); Anion Gap 8 (7-16); Aspartate Amino Transferase 15 U/L (0-34); BUN/Creatinine Ratio 18 Ratio (12-20); Bilirubin,Total 0.5 mg/dL (0.3-1.2); Blood Urea Nitrogen 9 mg/dL (9-23); Calcium 8.7 mg/dL (8.3-10.6); Carbon Dioxide 27.6 mMol/L (20.0-31.0); Chloride 100 mMol/L (98-107); Creatinine (Component) 0.5 mg/dL (0.6-1.3); Estimated Creatinine Clearance 93.7 mL/min (>60); Glucose 94 mg/dL (74-106); Magnesium 1.9 mg/dL (1.6-2.6); Osmolality,Calculated 270 (275-295); Phosphorous 3.5 mg/dL (2.4-5.1); Potassium 3.9 mMol/L (3.4-5.1); Sodium 136 mMol/L (136-145); Total Protein 6.6 gm/dL (5.7-8.2); eGFR > 60 See Note
[2024-10-02] MEDS: HYDROcodone/APAP 5/325 TABLET 1 TAB PO ×3 (09:04→21:17)
[2024-10-02] MEDS: LOSARTAN POTASSIUM 25 MG TABLET 50 MG PO (09:04)
[2024-10-02] MEDS: VANCOMYCIN/NS 750 MG IVPB 750 MG/150 ML BAG 120 MG IV ×2 (11:07→21:26)
--- NOTE | 2024-10-02 12:47 | PC.NURSE ---
Patient was taken to the OR at this time.
--- NOTE | 2024-10-02 14:23 | SUR.PHASEI ---
pt received from OR in recovery bay 5. pt asleep but responds to voice, breathing unlabored on 4l nc. v/s stable. pt dressing to right lower extremity cdi, wound vac in place. report received from Dr. Odette Flores, and [facility] CANTOR.
--- NOTE | 2024-10-02 14:43 | ESPR_ITS ---
Documentation for date of: 10/02/24 Subjective Subjective Interval history: Patient seen at bedside this morning. No overnight events. Orthopedic surgeon did order PICC line insertion and as per patient he was going to take patient to the OR today. Patient lower extremity does seem a little bit better today with less swelling and clean dressing. No other complaints at this time. Exam Vital Signs Temp Pulse Resp BP Pulse Ox O2 Del Method O2 Flow Rate 97.7 F 72 16 110/78 96 Nasal Cannula 4 10/02/24 14:40 10/02/24 14:40 10/02/24 14:40 10/02/24 14:40 10/02/24 14:40 10/02/24 12:00 10/02/24 14:23 Narrative Exam General: A/O x3, no acute distress, well-nourished, well-developed Eyes: PERRL, EOMI. Anicteric, vision grossly intact. Ears: No ear pain, no ear discharge, Hearing grossly intact. Nose: No nasal discharge. Mouth/Throat: Dry mucous membranes, no redness, no lesions. Neck: Neck supple, non-tender, no cervical lymphadenopathy. Lungs: Clear VARUN to auscultation and percussion, No accessory muscle use. Cardio: Normal S1/S2, regular rhythm, systolic murmur, no JVD Abdomen: Soft, non-tender, no palpable masses, peristalsis present, no guarding or rebound. Extremities: Symmetrical, no significant deformities, no peripheral edema , RLE tender to touch, peripheral pulses presents. R LE swelling improving and covered by clean dressing. Skin: No rashes, no lesions, warm to touch. Neuro: No focal neurological deficits. motor and sensory intact Psych: Cooperative, appropriate mood and effect. Objective Labs 10/03/24 05:20 10/03/24 05:20 Labs: Laboratory Results - last 24 hr 10/01/24 10/02/24 10/02/24 16:01 04:36 08:35 WBC 10.8 RBC 3.03 L Hgb 8.3 L Hct 26.0 L MCV 86 MCH 27.4 MCHC 31.9 RDW Std Deviation 42.0 Plt Count 440 D Neut % (Auto) 74 Lymph % (Auto) 13 Sharkey % (Auto) 10 Eos % (Auto) 1 Baso % (Auto) 0 Neut # (Auto) 8.0 H Lymph # (Auto) 1.4 Sharkey # (Auto) 1.1 H Eos # (Auto) 0.1 Baso # (Auto) 0.0 Immature Gran # (Auto) 0.07 H Absolute Nucleated RBC 0.00 Immature Gran % 1 H Nucleated RBC % 0 Sodium 136 Potassium 3.9 Chloride 100 Carbon Dioxide 27.6 Anion Gap 8 BUN 9 Creatinine 0.5 L Estim Creat Clear Calc 93.7 eGFR > 60 BUN/Creatinine Ratio 18 Glucose 94 Calculated Osmolality 270 L Calcium 8.7 Corrected Calcium 9.0 Phosphorus 3.5 Magnesium 1.9 Total Bilirubin 0.5 AST 15 ALT 18 Alkaline Phosphatase 107 Total Protein 6.6 Albumin 3.6 Globulin 3.0 Albumin/Globulin Ratio 1.2 Vancomycin Trough 15.0 H Blood Type O Positive Antibody Screen NEGATIVE Crossmatch See Detail Blood Bank Wristband ID Yes Quality Measures Quality Measures none Advance care planning discussed with:: patient Assessment & Plan Assessment Current Active Medications: Generic Name Dose Route Start Last Admin Trade Name Freq PRN Reason Stop Dose Admin Acetaminophen 650 mg 09/30/24 17:04 Acetaminophen 325 Mg Tablet PO 10/30/24 17:03 Q6H PRN pain and Fever >100.4 Protocol Hydrocodone Bitart/Acetaminophen 1 tab 09/30/24 17:04 10/02/24 09:04 Hydrocodone/Apap 5/325 Tablet PO 10/05/24 17:03 1 tab Q4HR PRN Administration PAIN SCALE 4-10(Mod-Sev Fentanyl Citrate 50 mcg 10/02/24 13:37 Fentanyl Cit Inj 50 Mcg/Ml Amp 2ml IV 10/02/24 15:37 Q5MIN PRN PAIN SCALE 4-10(Mod-Sev Heparin Sodium (Porcine) 5,000 unit 09/30/24 22:00 10/02/24 06:24 Heparin Sod Inj 5000 Unit/Ml Vial SC 10/14/24 21:59 5,000 unit Q8HR OPAL Administration Hydralazine HCl 5 mg 10/02/24 13:37 Hydralazine Inj 20 Mg/Ml Vial IV 10/02/24 15:37 Q20MIN PRN SEE COMMENTS Piperacillin/Tazobactam/Dextrose 50 mls @ 12.5 mls/hr 09/30/24 22:00 10/02/24 06:24 Zosyn IV 10/07/24 21:59 12.5 mls/hr Q8HR OPAL Administration Vancomycin/Sodium Chloride 750 mg in 150 mls @ 120 mls/hr 10/02/24 10:00 10/02/24 11:07 Vancomycin/Ns 750 Mg Ivpb IV 10/09/24 09:59 120 mls/hr Q12H OPAL Administration Protocol Promethazine HCl 12.5 mg/ 50.5 mls @ 2.5 mls/min 10/02/24 13:37 Sodium Chloride IM 10/02/24 15:37 X1 PRN NAUSEA OR VOMITING Losartan Potassium 50 mg 10/02/24 09:00 10/02/24 09:04 Losartan Potassium 25 Mg Tablet PO 11/01/24 08:59 50 mg QDAY OPAL Administration Meperidine HCl 12.5 mg 10/02/24 13:37 Meperidine Inj 50 Mg/Ml Vial IV 10/02/24 15:37 Q5M PRN SHIVERING Metoprolol Tartrate 1 mg 10/02/24 13:43 Metoprolol Tartrate Inj 1 Mg/Ml Amp 5 Ml IVP 10/02/24 15:43 Q5MIN PRN TACHYCARDIA Midazolam HCl 1 mg 10/02/24 13:37 Midazolam Inj 1 Mg/Ml Vial 2 Ml IV 10/02/24 15:37 Q5MIN PRN ANXIETY Ondansetron HCl 4 mg 09/30/24 17:04 Ondansetron Inj 2 Mg/Ml Inj 2 Ml IV 10/30/24 17:03 Q6H PRN NAUSEA OR VOMITING Protocol Pharmacy Consult 1 each 10/01/24 09:12 Vancomycin Pharmacy To Dose 1 Each Each IV 10/30/24 17:14 QDAY PRN PROTOCOL Sennosides 1 tab 09/30/24 17:04 Senna Tablet PO 10/30/24 17:03 QDAY PRN constipation Protocol Plan 69-year-old female with past medical history of prior right knee replacement, hypertension, arthritis, ventral hernias, and chronic anemia is admitted to the hospital on 09/30/2024 for R knee abscess. #Right knee abscess #Leukocytosis #History of right knee replacement ? Initially patient started having pain around 24 September and then she developed swelling as well as drainage of thick yellowish fluid. ?Patient had prior total knee replacement in 2017 which could indicate that there could be bacterial seeding in the metal artifacts. ? Prior episode of abscess in April, was prescribed oral antibiotics and resolved in 3 weeks. ? WBC 20.1 at admission ? Lactic acid 0.7 ? 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 Continue vancomycin and Zosyn [09/30/2024?] ? Blood cultures and wound cultures ordered ? Wound care ordered ?PICC line insertion ordered by orthopedic surgeon ? Patient may go to the OR today ?Ultrasound soft tissue of right knee ordered ? Orthopedic surgeon consulted, appreciate recommendations #Chronic normocytic normochromic anemia ?Patient has baseline hemoglobin of around 10. ?Per patient she takes iron due to anemia ? Hemoglobin this admission is 8.2 -Hgb today 8.3 ?no active signs of bleeding. Plan: ? Will transfuse hemoglobin less than 7 -Type and screen ordered -PRBC ready in case of need of transfusion ? Will continue to monitor #Hx of hypertension ? Patient's blood pressure on admission is 129/77 ? Patient takes clonidine 0.1 mg at home Plan: ? Increased losartan to 50mg daily ?Will monitor for rebound hypertension and if it does develop we will restart patient's clonidine ? Will continue to monitor Disposition: Patient pending ortho recs, possible surgical intervention today. Diet: NPO GI prophylaxis: not indicated DVT prophylaxis: heparin sc Code:Full Case disclosed with Attending Dr. Chamberlain and My senior Dr. Silva PGY2. Abram Thorne PGY1 Senior Resident Attestation: The patient was supposed to be taken to OR by orthopedics Dr. Braun. We will follow up on the patient tomorrow morning. I discussed with and supervised the architecture intern physician involved in the care of this patient. I personally saw and examined the patient and discussed the assessment and plan with the entire medicine team, including my attending. I agree with the assessment and plan as documented above. Roger Silva MD PGY2 Internal Medicine Attending Provider Attestation/Addendum I have examined the patient, reviewed labs and imaging findings, discussed the case with the resident(s), and reviewed entered orders. I agree with the plan of care as outlined in this note, with these additional summaries/recommendations: Patient seen at bedside. No acute overnight events. Patient reports her pain is controlled today and continues to have purulent discharge from right knee. Patient admitted for likely septic arthritis in the setting of previous knee replacement. 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 Orthopedics was consulted. CT right knee unrevealing secondary to artifacts from hardware. Patient reports she had a similar knee infection in the past and has been unable to ambulate regularly. Appreciate Ortho recs on if hardware needs to be removed or revised. Continue IV antibiotics. Blood cultures show no growth at 48 hours and right knee culture showing GNR. Will follow-up intra-operative cxs. Continue home antihypertensives and pain management. Repeat chemistry and hematology panel in AM. Dr. Chamberlain
--- NOTE | 2024-10-02 14:55 | SUR.PHASEI ---
pt asleep but responds to voice, breathing unlabored on room air. v/s stable. pt dressing to right lower extremity cdi. report called to Sagar Soto. pt will be transferred to room at this time.
[2024-10-03] VITALS (11 sets, daily range): BP systolic 119–151; BP diastolic 67–78; PULSE 63–96; RESP 16–93; TEMP 35.9–38; O2SAT 93–97; BMI 31.6
[2024-10-03] MEDS: HYDROcodone/APAP 5/325 TABLET 1 TAB PO ×3 (01:22→22:32)
[2024-10-03] MEDS: PIPER/TAZO 3.375 GM 50 ML IV (05:17)
[2024-10-03] MEDS: HEPARIN SOD INJ 5000 UNIT/ML VIAL SC ×3 (05:24→22:47)
[2024-10-03 05:37] LABS: Basophils # (Auto) 0.1 Thou/mm3 (0.0-0.2); Basophils % (Auto) 1 % (0-2.5); Eosinophils # (Auto) 0.2 Thou/mm3 (0.0-0.5); Eosinophils % (Auto) 2 % (0-10); Hematocrit 26.4 % (36.0-46.0); Immature Granulocytes % (Auto) 1 % (0-0); Immature Granulocytes Auto 0.07 Thou/mm3 (0.00-0.00); Lymphocytes # (Auto) 1.3 Thou/mm3 (1.0-4.8); Lymphocytes % (Auto) 15 % (10-50); Mean Corpuscular HGB Conc 32.2 g/dl (31.0-37.0); Mean Corpuscular Hemoglobin 27.4 pg (25.0-35.0); Mean Corpuscular Volume 85 fL (80-100); Monocytes % (Auto) 11 % (0-12); Neutrophils # (Auto) 6.5 Thou/mm3 (1.8-7.7); Neutrophils % (Auto) 72 % (37-80); Nucleated Red Blood Cell % 0 /100 WBC (0); Platelet Count 450 Thou/mm3 (140-440); RDW Standard Deviation 41.8 fL (36.4-46.3); White Blood Count 9.1 Thou/mm3 (3.6-11.0)
[2024-10-03 05:40] LABS: Hemoglobin 8.5 g/dL (12.0-16.0)
[2024-10-03 06:18] LABS: Alanine Aminotransferase 17 U/L (10-49); Albumin, Serum 3.5 gm/dL (3.4-4.8); Albumin/Globulin Ratio 1.2 (1.2-2.2); Alkaline Phosphatase 109 U/L (46-116); Anion Gap 7 (7-16); Aspartate Amino Transferase 14 U/L (0-34); BUN/Creatinine Ratio 23 Ratio (12-20); Bilirubin,Total 0.4 mg/dL (0.3-1.2); Blood Urea Nitrogen 14 mg/dL (9-23); Calcium (Corrected) 9.4 mg/dL (8.5-10.1); Carbon Dioxide 28.2 mMol/L (20.0-31.0); Chloride 101 mMol/L (98-107); Creatinine (Component) 0.6 mg/dL (0.6-1.3); Estimated Creatinine Clearance 78.1 mL/min (>60); Glucose 94 mg/dL (74-106); Osmolality,Calculated 272 (275-295); Phosphorous 3.7 mg/dL (2.4-5.1); Potassium 4.2 mMol/L (3.4-5.1); Sodium 136 mMol/L (136-145); Total Protein 6.5 gm/dL (5.7-8.2); eGFR > 60 See Note
[2024-10-03] MEDS: LOSARTAN POTASSIUM 25 MG TABLET 50 MG PO (08:14)
[2024-10-03] MEDS: VANCOMYCIN/NS 750 MG IVPB 750 MG/150 ML BAG 120 MG IV ×2 (09:06→22:35)
--- NOTE | 2024-10-03 10:42 | PD.SUROPNT ---
Date of Procedure 10/02/24 Pre Op Diagnosis Is status post right total knee replacement with infection Post Op Diagnosis Same Procedure Irrigation debridement with power lavage of right knee joint Findings Refer dictation Procedure Description Patient was given general anesthesia. Once satisfactory anesthesia achieved a tourniquet was placed on right upper thigh. Following that the part was thoroughly prepped and draped. After raising the leg for couple of minutes the tourniquet pressure was raised to 350 mmHg There was sinus type of opening over the lateral aspect of the knee joint. A skin incision was made about 2 to 3 inches proximal and 2 to 3 inches distal to the sinus and the opening. Deeper dissection was carried out. The skin margin was excised. This some pus came out. Aerobic anaerobic culture sensitivity and Gram staining was sent for Following that it appeared there was a little opening coming to the joint and it was coming from the joint. Very little pus came out. The tensor fascia lenora and the capsule of the joint was incised. No further pus came out. Copious amount of irrigation was used to irrigate the knee joint. Hydrogen peroxide solution, antibiotic solution and Povidine iodine solution was used in copious amount. Once significant amount of irrigation was used and a Hemovac drain was placed. The capsule of the joint was closed with 1 Vicryl in continuous fashion. The subcu tissue was closed with 2-0 Vicryl in interrupted fashion and the skin was closed with the of 1 Prolene in interrupted fashion After cleaning the wound with hydrogen peroxide solution a sterile dressing was applied and tourniquet pressure was released Patient tolerated procedure well. Estimated blood loss about 10 mL Further management. Patient will be managed with intravenous antibiotics and later on maybe oral antibiotics. There is a possibility that patient may need a revision of the knee prosthesis and patient is in the family are fully aware of that. If that is needed then in that case patient may be transferred to higher level of care or higher center of care. Anesthesia GETA Pathology / specimen None Estimated Blood Loss 10 Surgeon Randy Pascual MD Surgical Staff Operation Date: 10/02/24 13:00 Case Staff Anesthesiologist: Charly Pino
--- NOTE | 2024-10-03 10:54 | PC.SS ---
Patient is alert/oriented. She is [place] speaking only. Patient was admitted for right knee abscess. Patient was ambulatory prior to hospitalization. Patient uses a walker w/seat. Independent with ADL's. [facility]: [facility]. Patient states her alt medical decision maker is her . Her daughter, Nisha, is the second person to contact if neeed. Patient was following with [facility], Dr. Huston. Last appt. was August. Patient will work with Pt. HH vs SNF.
--- NOTE | 2024-10-03 11:12 | PC.SS ---
Follow up note: Patient went for debridement with today. Physician states patient will need picc line as well. SS will follow up with family to determine if d/c plan is HH vs SNF.
--- NOTE | 2024-10-03 13:08 | ESCONSULT_ITS ---
RE: RIA MAHONEY : 1955 DATE OF CONSULTATION: 10/01/2024 Thank you, Dr. Dewey, for asking me to consult with the patient whom I saw on 10/01/2024. HISTORY OF PRESENT ILLNESS: The patient was admitted on 09/30/2024 with history of pain, swelling, and discharge on the outer aspect of the right knee joint. The patient is status post right total knee replacement done in 2018, almost 6 or 7 years back. Initially, the patient did fine, but the patient always had some degree of mild aches and pain. The patient also did not have good range of motion. The patient added that in the month of 04/2024, she had some swelling and some infection and at that time, she was seen by her primary care physician, Dr. Huston. The patient stated that Dr. Huston gave some antibiotics and then, it went away. However, it recurred again after a couple of months or so. The patient is not sure whether she got antibiotics at that time or not. The patient further added that since 09/24/2024, she started to notice pain, swelling, and some discharge coming from the outer aspect. The patient went to the emergency room on 09/30/2024. X-ray was obtained. I was consulted. On 10/01/2024, I ordered a CT scan of the right knee joint to evaluate her further. PAST MEDICAL HISTORY: Significant for high blood pressure. The patient denies history of chest pain, myocardial infarction, or bleeding disorder. There is no history of diabetes mellitus. PAST SURGICAL HISTORY: Include ventral hernia repair. DRUG HISTORY: The patient was on methocarbamol, benazepril, clonidine, and calcium carbonate. ALLERGIES: Nil known. FAMILY HISTORY AND SOCIAL HISTORY: Noncontributory in this case. PHYSICAL EXAMINATION: GENERAL: Fully alert and oriented lady. VITAL SIGNS: Pulse 68 per minute. Blood pressure 132/86. NECK: Soft, supple. No mass felt. Trachea is centrally placed. CARDIOVASCULAR: First and second heart sounds normal. No murmur heard. RESPIRATORY SYSTEM: Bilateral respiratory breath sounds. CHEST: Clear. ABDOMEN: Soft. No masses felt. Bowel sounds present. EXTREMITIES: Right knee examination reveals there is a sinus type of opening over the lateral aspect of the right knee joint. The pus discharge is coming out. Range of motion is significantly restricted. The patient stated that she had less range of motion. DIAGNOSTIC DATA: Right knee x-ray was reviewed. There is a doubtful loosening of the prosthetic condyle. A knee CT scan was also obtained. Because of significant artifact, it is difficult to assess. The lab work was also checked. The patient's white cell count is 10.8 and at the time of admission, it was 20.1 and on 10/01/2024 is 13.4. The patient was advised irrigation and debridement. I also explained that I am going to stabilize the thing and start on IV antibiotics, which she already has been put on. I also explained to patients and the family that the patient may need a revision of the knee replacement secondary to infection and for that purpose, I may have to transfer her out to a higher level of care. However, I am going to do I and D and see how does she respond to that. Risks with anesthesia were explained and that includes, but not limited to reaction to anesthetic agents, cardiac arrest or rarely it might be fatal. Risks with operation includes infection and if that happens, the patient may need further surgical procedure. Other risks include delayed healing, wound dehiscence, etc. No guarantees given regarding outcomes of the procedure and/or relief of symptoms. Accordingly, surgery is booked for 10/02/2024. Appropriate lab work was done. DT: 10:41:03 TT: 13:07:00 Ref: [id number] - TID: [id number]
--- NOTE | 2024-10-03 13:54 | ESPR_ITS ---
<Statement entered by Ike Corral MD - 10/03/24 16:34> Patient was examined bedside this morning, she was comfortably sleeping in bed. Dr Pascual did I&D yesterday, PICC line placed today. as per Dr Aparna de leon, Patient will be managed with intravenous antibiotics and later on maybe oral antibiotics. There is a possibility that patient may need a revision of the knee prosthesis and patient is in the family are fully aware of that. If that is needed then in that case patient may be transferred to higher level of care or higher center of care. I discussed with and supervised my co-resident involved in the care of this patient. I agree with the assessment and plan as documented above. Ike Corral,PGY-3 Disclaimer: Despite multiple revisions, due to the dictation software being used, the document below may not be free of grammatical errors including phonetic/typographic errors. However, this does not deter from our commitment to providing health care in the patient's best interest in mind. Documentation for date of: 10/03/24 Subjective Subjective Interval history: Patient was seen at bedside this morning. No overnight events. Patient underwent I&D yesterday by orthopedic surgeon. In the OR patient had pus coming out when incision was made and there was a small orifice towards the joint which also has some pus coming out. Orthopedic surgeon requested to have a infectious disease consult and have PICC line placed. As per orthopedic surgeon if patient is to need to have hardware taken out patient would need to be transferred to the tertiary care center. Wound cultures did grow Klebsiella pneumonia and therefore antibiotics were changed from Zosyn to Rocephin. Patient had right knee covered clean dressing and drainage in place. No other complaints this time. Exam Vital Signs Temp Pulse Resp BP Pulse Ox O2 Del Method O2 Flow Rate 99.2 F 85 16 137/70 H 93 L Room Air 4 10/03/24 12:00 10/03/24 12:10/03/24 12:10/03/24 12:10/03/24 12:10/03/24 12:10/02/24 14:23 Narrative Exam General: A/O x3, no acute distress, well-nourished, well-developed Eyes: PERRL, EOMI. Anicteric, vision grossly intact. Ears: No ear pain, no ear discharge, Hearing grossly intact. Nose: No nasal discharge. Mouth/Throat: Dry mucous membranes, no redness, no lesions. Neck: Neck supple, non-tender, no cervical lymphadenopathy. Lungs: Clear VARUN to auscultation and percussion, No accessory muscle use. Cardio: Normal S1/S2, regular rhythm, systolic murmur, no JVD Abdomen: Soft, non-tender, no palpable masses, peristalsis present, no guarding or rebound. Extremities: Symmetrical, no significant deformities, no peripheral edema , RLE mildly tender to touch, peripheral pulses presents. R LE covered clean dressing and drainage in place Skin: No rashes, no lesions, warm to touch. Neuro: No focal neurological deficits. motor and sensory intact Psych: Cooperative, appropriate mood and effect. Objective Labs 10/03/24 05:20 10/03/24 05:20 Labs: Laboratory Results - last 24 hr 10/03/24 05:20 WBC 9.1 RBC 3.10 L Hgb 8.5 L Hct 26.4 L MCV 85 MCH 27.4 MCHC 32.2 RDW Std Deviation 41.8 Plt Count 450 H Neut % (Auto) 72 Lymph % (Auto) 15 [place] % (Auto) 11 Eos % (Auto) 2 Baso % (Auto) 1 Neut # (Auto) 6.5 Lymph # (Auto) 1.3 [place] # (Auto) 1.0 H Eos # (Auto) 0.2 Baso # (Auto) 0.1 Immature Gran # (Auto) 0.07 H Absolute Nucleated RBC 0.00 Immature Gran % 1 H Nucleated RBC % 0 Sodium 136 Potassium 4.2 Chloride 101 Carbon Dioxide 28.2 Anion Gap 7 BUN 14 Creatinine 0.6 Estim Creat Clear Calc 78.1 eGFR > 60 BUN/Creatinine Ratio 23 H Glucose 94 Calculated Osmolality 272 L Calcium 9.0 Corrected Calcium 9.4 Phosphorus 3.7 Magnesium 2.0 Total Bilirubin 0.4 AST 14 ALT 17 Alkaline Phosphatase 109 Total Protein 6.5 Albumin 3.5 Globulin 3.0 Albumin/Globulin Ratio 1.2 Quality Measures Quality Measures none Advance care planning discussed with:: patient Assessment & Plan Assessment Current Active Medications: Generic Name Dose Route Start Last Admin Trade Name Freq PRN Reason Stop Dose Admin Acetaminophen 650 mg 09/30/24 17:04 Acetaminophen 325 Mg Tablet PO 10/30/24 17:03 Q6H PRN pain and Fever >100.4 Protocol Hydrocodone Bitart/Acetaminophen 1 tab 09/30/24 17:04 10/03/24 05:19 Hydrocodone/Apap 5/325 Tablet PO 10/05/24 17:03 1 tab Q4HR PRN Administration PAIN SCALE 4-10(Mod-Sev Heparin Sodium (Porcine) 5,000 unit 09/30/24 22:00 10/03/24 05:24 Heparin Sod Inj 5000 Unit/Ml Vial SC 10/14/24 21:59 5,000 unit Q8HR OPAL Administration Vancomycin/Sodium Chloride 750 mg in 150 mls @ 120 mls/hr 10/02/24 10:00 10/03/24 09:06 Vancomycin/Ns 750 Mg Ivpb IV 10/09/24 09:59 120 mls/hr Q12H OPAL Administration Protocol Ceftriaxone Sodium 2 gm/ 50 mls @ 100 mls/hr 10/03/24 11:30 10/03/24 12:02 Sodium Chloride IV 10/10/24 11:29 100 mls/hr QDAY OPAL Administration Losartan Potassium 50 mg 10/02/24 09:00 10/03/24 08:14 Losartan Potassium 25 Mg Tablet PO 11/01/24 08:59 50 mg QDAY OPAL Administration Ondansetron HCl 4 mg 09/30/24 17:04 Ondansetron Inj 2 Mg/Ml Inj 2 Ml IV 10/30/24 17:03 Q6H PRN NAUSEA OR VOMITING Protocol Pharmacy Consult 1 each 10/01/24 09:12 Vancomycin Pharmacy To Dose 1 Each Each IV 10/30/24 17:14 QDAY PRN PROTOCOL Sennosides 1 tab 09/30/24 17:04 Senna Tablet PO 10/30/24 17:03 QDAY PRN constipation Protocol Plan 69-year-old female with past medical history of prior right knee replacement, hypertension, arthritis, ventral hernias, and chronic anemia is admitted to the hospital on 09/30/2024 for R knee abscess. #Right knee abscess s/p I&D #Septic joint #Leukocytosis #History of right knee replacement ? Initially patient started having pain around 24 September and then she developed swelling as well as drainage of thick yellowish fluid. ?Patient had prior total knee replacement in 2017 which could indicate that there could be bacterial seeding in the metal artifacts. ? Prior episode of abscess in April, was prescribed oral antibiotics and resolved in 3 weeks. ? WBC 20.1 at admission ? Lactic acid 0.7 ? 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 -Zosyn [09/30/2024?] - I & D on 10/02/2024, patient had pus coming out when incision was made and there was a small orifice towards the joint which also has some pus coming out. Plan: ? Continue vancomycin[09/30/2024?] -Started Rocephin 2 gm Iv qday [10/03/2024-] ? Wound care ordered ?PICC line insertion ordered -May need transfer to a tertiary care center if removal of hardware is need as per orthopedic surgery. ? Orthopedic surgeon consulted, appreciate recommendations - ID consulted, appreciate recommendations #Chronic normocytic normochromic anemia ?Patient has baseline hemoglobin of around 10. ?Per patient she takes iron due to anemia ? Hemoglobin this admission is 8.2 -Hgb today 8.5 ?no active signs of bleeding. Plan: ? Will transfuse hemoglobin less than 7 -Type and screen ordered -PRBC ready in case of need of transfusion ? Will continue to monitor #Hx of hypertension ? Patient's blood pressure on admission is 129/77 ? Patient takes clonidine 0.1 mg at home Plan: ? Continue losartan to 50mg daily ?Will monitor for rebound hypertension and if it does develop we will restart patient's clonidine ? Will continue to monitor Disposition: Patient pending ortho recs, possible surgical intervention today. Diet: regular GI prophylaxis: not indicated DVT prophylaxis: heparin sc Code:Full Case disclosed with Attending Dr. Chamberlain and My senior Dr. Corral PGY3. Abram Thorne PGY1 Attending Provider Attestation/Addendum I have examined the patient, reviewed labs and imaging findings, discussed the case with the resident(s), and reviewed entered orders. I agree with the plan of care as outlined in this note, with these additional summaries/recommendations: Patient seen at bedside. No acute overnight events. Patient reports her pain is controlled today. Patient is status post irrigation and debridement of right knee and pus was noted. Intraoperative cultures were taken and pending. Patient admitted for likely septic arthritis in the setting of previous knee replacement. 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 Orthopedics was consulted. CT right knee unrevealing secondary to artifacts from hardware. Appreciate Ortho recs on if hardware needs to be removed or revised. Continue IV antibiotics. Blood cultures show no growth at 48 hours and superficial right knee culture grew klebsiella pneumoniae. Will follow-up intra-operative cxs. Infectious disease consulted. Continue home antihypertensives and pain management. Repeat chemistry and hematology panel in AM. Dr. Chamberlain
--- NOTE | 2024-10-03 14:24 | PC.NURSE ---
consulted hospitalist dr glaser regarding order for picc line inertion, plan is for patient to have picc line inserted, new order will be placed by
[2024-10-03] MEDS: ACETAMINOPHEN 325 MG TABLET 650 MG PO (17:59)
[2024-10-03 21:59] LABS: Vancomycin,Trough 8.5 mcg/mL (5.0-10.0)
[2024-10-04] VITALS (10 sets, daily range): BP systolic 94–136; BP diastolic 58–80; PULSE 63–94; RESP 16–97; TEMP 36.2–36.7; O2SAT 93–98
[2024-10-04] MEDS: HYDROcodone/APAP 5/325 TABLET 1 TAB PO ×3 (04:40→22:09)
[2024-10-04] MEDS: HEPARIN SOD INJ 5000 UNIT/ML VIAL SC ×3 (05:57→22:09)
[2024-10-04 06:25] LABS: Basophils # (Auto) 0.1 Thou/mm3 (0.0-0.2); Basophils % (Auto) 1 % (0-2.5); Eosinophils # (Auto) 0.2 Thou/mm3 (0.0-0.5); Eosinophils % (Auto) 2 % (0-10); Hematocrit 28.9 % (36.0-46.0); Hemoglobin 9.1 g/dL (12.0-16.0); Immature Granulocytes % (Auto) 1 % (0-0); Immature Granulocytes Auto 0.11 Thou/mm3 (0.00-0.00); Lymphocytes # (Auto) 1.5 Thou/mm3 (1.0-4.8); Lymphocytes % (Auto) 13 % (10-50); Mean Corpuscular HGB Conc 31.5 g/dl (31.0-37.0); Mean Corpuscular Hemoglobin 27.3 pg (25.0-35.0); Mean Corpuscular Volume 87 fL (80-100); Monocytes % (Auto) 9 % (0-12); Neutrophils # (Auto) 8.3 Thou/mm3 (1.8-7.7); Neutrophils % (Auto) 74 % (37-80); Nucleated Red Blood Cell % 0 /100 WBC (0); Platelet Count 492 Thou/mm3 (140-440); Red Blood Count 3.33 Miln/mm3 (4.00-5.20); White Blood Count 11.1 Thou/mm3 (3.6-11.0)
[2024-10-04] MEDS: LOSARTAN POTASSIUM 25 MG TABLET 50 MG PO (08:12)
[2024-10-04] MEDS: VANCOMYCIN/NS 1 GM IVPB 200 ML IV (09:53)
--- NOTE | 2024-10-04 16:21 | PD.RESPRO ---
Documentation for date of: 10/04/24 Subjective Subjective Interval history: The patient was interviewed and examined at the bedside this morning. She reported her pain being well-controlled with pain medications, and eat does not heart during rest but during movement the pain intensity increases up to 7-8/10. She denied any fever or chills, nausea or vomiting. Exam Vital Signs Temp Pulse Resp BP Pulse Ox O2 Del Method O2 Flow Rate 97.1 F 84 18 128/76 93 L Room Air 4 10/04/24 12:10/04/24 12:10/04/24 12:10/04/24 12:10/04/24 12:10/04/24 12:10/02/24 14:23 Narrative Exam General: A/O x3, no acute distress, well-nourished, well-developed Eyes: PERRL, EOMI. Anicteric, vision grossly intact. Ears: No ear pain, no ear discharge, Hearing grossly intact. Nose: No nasal discharge. Mouth/Throat: Dry mucous membranes, no redness, no lesions. Neck: Neck supple, non-tender, no cervical lymphadenopathy. Lungs: Clear VARUN to auscultation and percussion, No accessory muscle use. Cardio: Normal S1/S2, regular rhythm, systolic murmur, no JVD Abdomen: Soft, non-tender, no palpable masses, peristalsis present, no guarding or rebound. Extremities: Symmetrical, no significant deformities, no peripheral edema , RLE mildly tender to touch, peripheral pulses presents. R LE covered clean dressing and drainage in place Skin: No rashes, no lesions, warm to touch. Neuro: No focal neurological deficits. motor and sensory intact Psych: Cooperative, appropriate mood and effect. Objective Labs 10/05/24 04:55 10/05/24 04:55 Labs: Laboratory Results - last 24 hr 10/01/24 10/03/24 10/04/24 16:01 21:00 05:19 WBC 11.1 H RBC 3.33 L Hgb 9.1 L Hct 28.9 L MCV 87 MCH 27.3 MCHC 31.5 RDW Std Deviation 42.0 Plt Count 492 H D Neut % (Auto) 74 Lymph % (Auto) 13 [place] % (Auto) 9 Eos % (Auto) 2 Baso % (Auto) 1 Neut # (Auto) 8.3 H Lymph # (Auto) 1.5 [place] # (Auto) 1.0 H Eos # (Auto) 0.2 Baso # (Auto) 0.1 Immature Gran # (Auto) 0.11 H Absolute Nucleated RBC 0.00 Immature Gran % 1 H Nucleated RBC % 0 Vancomycin Trough 8.5 Crossmatch See Detail Quality Measures Quality Measures none Advance care planning discussed with:: patient Assessment & Plan Assessment Current Active Medications: Generic Name Dose Route Start Last Admin Trade Name Freq PRN Reason Stop Dose Admin Acetaminophen 650 mg 09/30/24 17:04 10/03/24 17:59 Acetaminophen 325 Mg Tablet PO 10/30/24 17:03 650 mg Q6H PRN Administration pain and Fever >100.4 Protocol Hydrocodone Bitart/Acetaminophen 1 tab 09/30/24 17:04 10/04/24 04:40 Hydrocodone/Apap 5/325 Tablet PO 10/05/24 17:03 1 tab Q4HR PRN Administration PAIN SCALE 4-10(Mod-Sev Heparin Sodium (Porcine) 5,000 unit 09/30/24 22:00 10/04/24 14:19 Heparin Sod Inj 5000 Unit/Ml Vial SC 10/14/24 21:59 5,000 unit Q8HR OPAL Administration Ceftriaxone Sodium 2 gm/ 50 mls @ 100 mls/hr 10/03/24 11:30 10/04/24 09:53 Sodium Chloride IV 10/10/24 11:29 100 mls/hr QDAY OPAL Administration Losartan Potassium 50 mg 10/02/24 09:00 10/04/24 08:12 Losartan Potassium 25 Mg Tablet PO 11/01/24 08:59 50 mg QDAY OPAL Administration Ondansetron HCl 4 mg 09/30/24 17:04 Ondansetron Inj 2 Mg/Ml Inj 2 Ml IV 10/30/24 17:03 Q6H PRN NAUSEA OR VOMITING Protocol Sennosides 1 tab 09/30/24 17:04 Senna Tablet PO 10/30/24 17:03 QDAY PRN constipation Protocol Plan 69-year-old female with past medical history of prior right knee replacement, hypertension, arthritis, ventral hernias, and chronic anemia is admitted to the hospital on 09/30/2024 for R knee abscess. #Right knee abscess s/p I&D #Septic joint #Leukocytosis #History of right knee replacement ? Initially patient started having pain around 24 September and then she developed swelling as well as drainage of thick yellowish fluid. ?Patient had prior total knee replacement in 2018 which could indicate that there could be bacterial seeding in the metal artifacts. ? Prior episode of abscess in April, was prescribed oral antibiotics and resolved in 3 weeks. ? WBC 20.1 at admission ? Lactic acid 0.7 ? 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 -Zosyn [09/30/2024?10/04/24] - I & D on 10/02/2024, patient had pus coming out when incision was made and there was a small orifice towards the joint which also has some pus coming out. Plan: ? On vancomycin[09/30/2024?10/04/24] -Started Rocephin 2 gm Iv qday [10/03/2024-] ? Wound care ordered ?PICC line insertion ordered -May need transfer to a tertiary care center if removal of hardware is need as per orthopedic surgery. ? Orthopedic surgeon consulted, appreciate recommendations - ID consulted, appreciate recommendations #Chronic normocytic normochromic anemia ?Patient has baseline hemoglobin of around 10. ?Per patient she takes iron due to anemia ? Hemoglobin this admission is 8.2 -Hgb today 8.5 ?no active signs of bleeding. Plan: ? Will transfuse hemoglobin less than 7 -Type and screen ordered -PRBC ready in case of need of transfusion ? Will continue to monitor #Hx of hypertension ? Patient's blood pressure on admission is 129/77 ? Patient takes clonidine 0.1 mg at home Plan: ? Continue losartan to 50mg daily ?Will monitor for rebound hypertension and if it does develop we will restart patient's clonidine ? Will continue to monitor Disposition: Patient pending ortho recs, possible surgical intervention today. Diet: regular GI prophylaxis: not indicated DVT prophylaxis: heparin sc Code:Full The patient's management plan was discussed with my attending physician MD Roger Sanon MD, PGY2 Attending Provider Attestation/Addendum I have examined the patient, reviewed labs and imaging findings, discussed the case with the resident(s), and reviewed entered orders. I agree with the plan of care as outlined in this note, with these additional summaries/recommendations: Patient seen at bedside. No acute overnight events. Patient reports her pain is controlled today and has no other new symptoms to report at this time. Patient is status post irrigation and debridement of right knee and pus was noted. Intraoperative cultures were taken and pending. We will discuss with lab today if cell counts can be run. Of note patient received abx prior to intraoperative cultures and may not be reliable. Patient admitted for likely septic arthritis in the setting of previous knee replacement. 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 Orthopedics was consulted. CT right knee unrevealing secondary to artifacts from hardware. Appreciate Ortho recs on if hardware needs to be removed or revised. Continue IV antibiotics. Blood cultures show no growth and superficial right knee culture grew klebsiella pneumoniae. Will follow-up intra-operative cxs. Infectious disease consulted. Continue home antihypertensives and pain management. Repeat chemistry and hematology panel in AM. Dr. Chamberlain
--- NOTE | 2024-10-04 19:55 | PC.NURSE ---
dr juan notified of pt BP 94/58 R 63, states it is okay because patient got norco at 1700. states to notify her if BP continues to be low upon next vital sign check.
[2024-10-05] VITALS (8 sets, daily range): BP systolic 106–155; BP diastolic 68–95; PULSE 77–100; RESP 16–93; TEMP 36.1–37.1; O2SAT 92–96
[2024-10-05 05:42] LABS: Basophils # (Auto) 0.1 Thou/mm3 (0.0-0.2); Basophils % (Auto) 1 % (0-2.5); Eosinophils # (Auto) 0.3 Thou/mm3 (0.0-0.5); Eosinophils % (Auto) 2 % (0-10); Hematocrit 28.1 % (36.0-46.0); Hemoglobin 8.9 g/dL (12.0-16.0); Immature Granulocytes % (Auto) 1 % (0-0); Immature Granulocytes Auto 0.16 Thou/mm3 (0.00-0.00); Lymphocytes # (Auto) 1.9 Thou/mm3 (1.0-4.8); Lymphocytes % (Auto) 17 % (10-50); Mean Corpuscular HGB Conc 31.7 g/dl (31.0-37.0); Mean Corpuscular Volume 88 fL (80-100); Monocytes # (Auto) 1.1 Thou/mm3 (0.0-0.8); Monocytes % (Auto) 10 % (0-12); Neutrophils % (Auto) 70 % (37-80); Nucleated Red Blood Cell % 0 /100 WBC (0); Platelet Count 490 Thou/mm3 (140-440); Red Blood Count 3.18 Miln/mm3 (4.00-5.20); White Blood Count 11.4 Thou/mm3 (3.6-11.0)
[2024-10-05] MEDS: HEPARIN SOD INJ 5000 UNIT/ML VIAL SC ×3 (06:03→21:16)
[2024-10-05 06:08] LABS: Alanine Aminotransferase 16 U/L (10-49); Albumin, Serum 3.6 gm/dL (3.4-4.8); Albumin/Globulin Ratio 1.2 (1.2-2.2); Alkaline Phosphatase 125 U/L (46-116); Anion Gap 8 (7-16); Aspartate Amino Transferase 15 U/L (0-34); BUN/Creatinine Ratio 49 Ratio (12-20); Bilirubin,Total < 0.2 mg/dL (0.3-1.2); Blood Urea Nitrogen 39 mg/dL (9-23); Calcium 9.1 mg/dL (8.3-10.6); Calcium (Corrected) 9.4 mg/dL (8.5-10.1); Chloride 103 mMol/L (98-107); Creatinine (Component) 0.8 mg/dL (0.6-1.3); Estimated Creatinine Clearance 58.6 mL/min (>60); Glucose 91 mg/dL (74-106); Osmolality,Calculated 283 (275-295); Potassium 4.4 mMol/L (3.4-5.1); Sodium 137 mMol/L (136-145); Total Protein 6.6 gm/dL (5.7-8.2); eGFR > 60 See Note
[2024-10-05] MEDS: LOSARTAN POTASSIUM 25 MG TABLET 50 MG PO (08:47)
--- NOTE | 2024-10-05 13:43 | ESPR_ITS ---
Documentation for date of: 10/05/24 Subjective Subjective Interval history: Patient was examined bedside this morning, she was comfortably sleeping in bed. No acute overnight event. pending ID recs and PICC line. Initially she was down in IR for PICC line placement on Sunday but she does not have a PICC line will try to put picc tomorrow. Exam Vital Signs Temp Pulse Resp BP Pulse Ox O2 Del Method O2 Flow Rate 97.5 F 87 18 114/69 95 Room Air 4 10/05/24 12:10/05/24 12:10/05/24 12:10/05/24 12:10/05/24 12:10/05/24 12:10/02/24 14:23 Narrative Exam GENERAL: Comfortable adult seen resting comfortably in hospital bed, no acute distress VITALS: All vitals were reviewed and the pulse ox is 98% on room air HEENT: Normocephalic, atraumatic. Pupils are equal and reactive. Oral mucosa is moist. NECK: Supple, nontender, no JVD CHEST: Symmetrical, atraumatic and with equal expansion ,Nontender on palpation CARDIOVASCULAR: Heart regular rhythm & rate. S1/S2. no murmur or gallop rub or extra beats. LUNGS: Clear to auscultation bilaterally with symmetrical chest rise. No laboring tachypnea or wheezing. No intercostal subcostal retraction. No rales and no rhonchi. ABDOMEN: Soft, flat, nontender to palpation, no guarding or rebound tenderness. Active and normal bowel sounds. EXTREMITIES: right leg covered with bandage with drain in place draining serosenganeous fluid SKIN: Warm and dry, no jaundice or rashes noted. NEURO: Patient is AO x 3, Cranial nerves II through XII grossly intact. There is no focal neurologic deficits noted. PSYCHIATRIC: Patient is in normal mood, cooperative, no SI or HI or hallucinations. Objective Labs 10/06/24 05:16 10/06/24 05:16 Labs: Laboratory Results - last 24 hr 10/01/24 10/05/24 16:01 04:55 WBC 11.4 H RBC 3.18 L Hgb 8.9 L Hct 28.1 L MCV 88 MCH 28.0 MCHC 31.7 RDW Std Deviation 44.0 Plt Count 490 H Neut % (Auto) 70 Lymph % (Auto) 17 [place] % (Auto) 10 Eos % (Auto) 2 Baso % (Auto) 1 Neut # (Auto) 8.0 H Lymph # (Auto) 1.9 [place] # (Auto) 1.1 H Eos # (Auto) 0.3 Baso # (Auto) 0.1 Immature Gran # (Auto) 0.16 H Absolute Nucleated RBC 0.00 Immature Gran % 1 H Nucleated RBC % 0 Sodium 137 Potassium 4.4 Chloride 103 Carbon Dioxide 26.0 Anion Gap 8 BUN 39 H Creatinine 0.8 Estim Creat Clear Calc 58.6 L eGFR > 60 BUN/Creatinine Ratio 49 H Glucose 91 Calculated Osmolality 283 Calcium 9.1 Corrected Calcium 9.4 Total Bilirubin < 0.2 L AST 15 ALT 16 Alkaline Phosphatase 125 H Total Protein 6.6 Albumin 3.6 Globulin 3.0 Albumin/Globulin Ratio 1.2 Crossmatch See Detail Quality Measures Quality Measures none Advance care planning discussed with:: patient Assessment & Plan Assessment Current Active Medications: Generic Name Dose Route Start Last Admin Trade Name Freq PRN Reason Stop Dose Admin Acetaminophen 650 mg 09/30/24 17:04 10/03/24 17:59 Acetaminophen 325 Mg Tablet PO 10/30/24 17:03 650 mg Q6H PRN Administration pain and Fever >100.4 Protocol Hydrocodone Bitart/Acetaminophen 1 tab 09/30/24 17:04 10/04/24 22:09 Hydrocodone/Apap 5/325 Tablet PO 10/05/24 17:03 1 tab Q4HR PRN Administration PAIN SCALE 4-10(Mod-Sev Heparin Sodium (Porcine) 5,000 unit 09/30/24 22:00 10/05/24 13:11 Heparin Sod Inj 5000 Unit/Ml Vial SC 10/14/24 21:59 5,000 unit Q8HR OPAL Administration Ceftriaxone Sodium 2 gm/ 50 mls @ 100 mls/hr 10/03/24 11:30 10/05/24 08:47 Sodium Chloride IV 10/10/24 11:29 100 mls/hr QDAY OPAL Administration Losartan Potassium 50 mg 10/02/24 09:00 10/05/24 08:47 Losartan Potassium 25 Mg Tablet PO 11/01/24 08:59 50 mg QDAY OPAL Administration Ondansetron HCl 4 mg 09/30/24 17:04 Ondansetron Inj 2 Mg/Ml Inj 2 Ml IV 10/30/24 17:03 Q6H PRN NAUSEA OR VOMITING Protocol Sennosides 1 tab 09/30/24 17:04 Senna Tablet PO 10/30/24 17:03 QDAY PRN constipation Protocol Plan 69-year-old female with past medical history of prior right knee replacement, hypertension, arthritis, ventral hernias, and chronic anemia is admitted to the hospital on 09/30/2024 for R knee abscess. Patient seen at bedside. No acute overnight events. Patient reports her pain is controlled today and has no other new symptoms to report at this time. Patient is status post irrigation and debridement of right knee and pus was noted. Intraoperative cultures were taken and pending. We will discuss with lab today if cell counts can be run. Of note patient received abx prior to intraoperative cultures and may not be reliable. Patient admitted for likely septic arthritis in the setting of previous knee replacement. 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 Orthopedics was consulted. CT right knee unrevealing secondary to artifacts from hardware. Appreciate Ortho recs on if hardware needs to be removed or revised. Continue IV antibiotics. Blood cultures show no growth and superficial right knee culture grew klebsiella pneumoniae. Will follow-up intra- operative cxs. Infectious disease consulted. Continue home antihypertensives and pain management. Repeat chemistry and hematology panel in AM. #Right knee abscess s/p irrigation and debridment #Septic joint #Leuk - resolving ocytosis #History of right knee replacement ? Initially patient started having pain around 24 September and then she developed swelling as well as drainage of thick yellowish fluid. ?Patient had prior total knee replacement in 2017 which could indicate that there could be bacterial seeding in the metal artifacts. ? Prior episode of abscess in April, was prescribed oral antibiotics and resolved in 3 weeks. ? WBC 20.1 at admission today 11.4 ? Lactic acid 0.7 ? 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 -Zosyn [09/30/2024?10/04/24] - I & D on 10/02/2024, patient had pus coming out when incision was made and there was a small orifice towards the joint which also has some pus coming out. -On vancomycin[09/30/2024?10/04/24] -Continue Rocephin 2 gm Iv qday [10/03/2024-] -Continue wound care ?PICC line insertion ordered -May need transfer to a tertiary care center if removal of hardware is need as per orthopedic surgery. ? Orthopedic surgeon consulted, appreciate recommendations - ID consulted, appreciate recommendations #Chronic normocytic normochromic anemia ?Patient has baseline hemoglobin of around 10. ?Per patient she takes iron due to anemia ? Hemoglobin this admission is 8.2 -Hgb today 8.9 -no active signs of bleeding. -Will transfuse hemoglobin less than 7 -Type and screen ordered -PRBC ready in case of need of transfusion ? Will continue to monitor #Hx of hypertension ?Patient's blood pressure on admission is 129/77 ?Patient takes clonidine 0.1 mg at home ?Continue losartan to 50mg daily ?Will monitor for rebound hypertension and if it does develop we will restart patient's clonidine Disposition: Patient pending ortho recs,continue IV antibiotics , picc line pending Diet: regular GI prophylaxis: not indicated DVT prophylaxis: heparin sc Code:Full The patient's management plan was discussed with my attending physician MD Ike Sanon MD ,PGY-3 Attending Provider Attestation/Addendum I have examined the patient, reviewed labs and imaging findings, discussed the case with the resident(s), and reviewed entered orders. I agree with the plan of care as outlined in this note, with these additional summaries/recommendations: Patient seen at bedside. No acute overnight events. Patient has no new symptoms to report today. Patient is status post irrigation and debridement of right knee and Hemovac placed. Intraoperative cultures were taken and grew klebsiella pneumoniae. Consult infectious disease. Patient admitted for likely septic arthritis in the setting of previous knee replacement. 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 Orthopedics was consulted. CT right knee unrevealing secondary to artifacts from hardware. Appreciate Ortho recs on if hardware needs to be removed or revised. Continue IV antibiotics. Blood cultures show no growth. Continue home antihypertensives and pain management. Repeat chemistry and hematology panel in AM. Dr. Chamberlain
[2024-10-06] VITALS (12 sets, daily range): BP systolic 99–129; BP diastolic 60–80; PULSE 76–90; RESP 12–19; TEMP 36.1–37.1; O2SAT 92–97
[2024-10-06] MEDS: HEPARIN SOD INJ 5000 UNIT/ML VIAL SC ×2 (05:06→21:18)
[2024-10-06 05:58] LABS: Basophils # (Auto) 0.1 Thou/mm3 (0.0-0.2); Basophils % (Auto) 1 % (0-2.5); Eosinophils # (Auto) 0.2 Thou/mm3 (0.0-0.5); Eosinophils % (Auto) 2 % (0-10); Hematocrit 27.9 % (36.0-46.0); Immature Granulocytes % (Auto) 2 % (0-0); Immature Granulocytes Auto 0.22 Thou/mm3 (0.00-0.00); Lymphocytes # (Auto) 1.8 Thou/mm3 (1.0-4.8); Lymphocytes % (Auto) 14 % (10-50); Mean Corpuscular HGB Conc 31.5 g/dl (31.0-37.0); Mean Corpuscular Hemoglobin 27.8 pg (25.0-35.0); Mean Corpuscular Volume 88 fL (80-100); Monocytes % (Auto) 8 % (0-12); Neutrophils # (Auto) 9.4 Thou/mm3 (1.8-7.7); Neutrophils % (Auto) 74 % (37-80); Nucleated Red Blood Cell % 0 /100 WBC (0); Platelet Count 592 Thou/mm3 (140-440); RDW Standard Deviation 44.3 fL (36.4-46.3); Red Blood Count 3.16 Miln/mm3 (4.00-5.20); White Blood Count 12.7 Thou/mm3 (3.6-11.0)
[2024-10-06 06:03] LABS: Hemoglobin 8.8 g/dL (12.0-16.0)
[2024-10-06 06:20] LABS: Alanine Aminotransferase 23 U/L (10-49); Albumin, Serum 3.5 gm/dL (3.4-4.8); Albumin/Globulin Ratio 1.1 (1.2-2.2); Alkaline Phosphatase 122 U/L (46-116); Anion Gap 8 (7-16); Aspartate Amino Transferase 31 U/L (0-34); BUN/Creatinine Ratio 53 Ratio (12-20); Bilirubin,Total 0.2 mg/dL (0.3-1.2); Blood Urea Nitrogen 32 mg/dL (9-23); Calcium 9.4 mg/dL (8.3-10.6); Calcium (Corrected) 9.8 mg/dL (8.5-10.1); Carbon Dioxide 22.9 mMol/L (20.0-31.0); Chloride 106 mMol/L (98-107); Creatinine (Component) 0.6 mg/dL (0.6-1.3); Estimated Creatinine Clearance 78.1 mL/min (>60); Globulin 3.2 gm/dL (2.3-3.5); Glucose 87 mg/dL (74-106); Osmolality,Calculated 279 (275-295); Potassium 4.5 mMol/L (3.4-5.1); Sodium 137 mMol/L (136-145); Total Protein 6.7 gm/dL (5.7-8.2); eGFR > 60 See Note
--- NOTE | 2024-10-06 09:06 | PD.IDPROG ---
Subjective Subjective Interval history: cx with rare kleb off a neg gram stain. operative findings as noted by dr blue Exam Vital Signs Temp Pulse Resp BP Pulse Ox O2 Del Method O2 Flow Rate 97.0 F 76 17 116/69 97 Room Air 4 10/06/24 08:00 10/06/24 08:00 10/06/24 08:00 10/06/24 08:00 10/06/24 08:00 10/06/24 08:00 10/02/24 14:23 Narrative Exam limited rom noted. rt knee wrapped and drain noted. Objective - Internal Medicine Labs 10/06/24 05:16 10/06/24 05:16 Labs: Laboratory Results - last 24 hr 10/06/24 05:16 WBC 12.7 H RBC 3.16 L Hgb 8.8 L Hct 27.9 L MCV 88 MCH 27.8 MCHC 31.5 RDW Std Deviation 44.3 Plt Count 592 H D Neut % (Auto) 74 Lymph % (Auto) 14 [place] % (Auto) 8 Eos % (Auto) 2 Baso % (Auto) 1 Neut # (Auto) 9.4 H Lymph # (Auto) 1.8 [place] # (Auto) 1.0 H Eos # (Auto) 0.2 Baso # (Auto) 0.1 Immature Gran # (Auto) 0.22 H Absolute Nucleated RBC 0.00 Immature Gran % 2 H Nucleated RBC % 0 Sodium 137 Potassium 4.5 Chloride 106 Carbon Dioxide 22.9 Anion Gap 8 BUN 32 H Creatinine 0.6 Estim Creat Clear Calc 78.1 eGFR > 60 BUN/Creatinine Ratio 53 H Glucose 87 Calculated Osmolality 279 Calcium 9.4 Corrected Calcium 9.8 Total Bilirubin 0.2 L AST 31 ALT 23 Alkaline Phosphatase 122 H Total Protein 6.7 Albumin 3.5 Globulin 3.2 Albumin/Globulin Ratio 1.1 L Assessment & Plan A&P Narrative knee abscess. cx with kleb but gram stain neg and nasal mrsa neg other problems as noted make sure overall status is good if not, optimize rx for other disease states given prior apparent failure of po rx. suggest iv rocephin 2 gm daily for 6 weeks. if recurs with same germ, then may have to remove device completely which may have already occurred .original placement of device was about 2018, even if device removed, finish 6 weeks rx anyway (from date of surgery). please do weekly cbc, renal panel, esr and f/u with dr blue. no need to see ID. remove line at end of rx please. will see again prn. she wants to do her rehab at home, that is not my decision. Time Spent With Patient Time: Total time spent is greater than 50% in coordination of care (as documented) at patient's floor/unit and/or counseling patient:
--- NOTE | 2024-10-06 09:32 | ESPR_ITS ---
<Statement entered by Ike Corral MD - 10/06/24 15:52> Patient was examined bedside this morning, sleeping comfortably in bed. She still has minimal serosanguineous drainage, as per Dr Spencer continue 6 weeks of Rocephin from the day of surgery with weekly CBC ,renal pannel,esr. As per Dr De Paz he will put the drain out and start PT with Weight bearing . I discussed with and supervised my co-resident involved in the care of this patient. I agree with the assessment and plan as documented above. Ike Corral,PGY-3 Disclaimer: Despite multiple revisions, due to the dictation software being used, the document below may not be free of grammatical errors including phonetic/typographic errors. However, this does not deter from our commitment to providing health care in the patient's best interest in mind. Documentation for date of: 10/06/24 Subjective Subjective Interval history: Patient seen at bedside this morning. No overnight events. Patient's pain is well-controlled at her right knee is covered with clean dressings and her drainage is draining well. As per infectious disease specialist patient is to get 2 g IV for 6 weeks total of ceftriaxone and if this fails and she had similar episode of abscess with the same bacteria will likely need to get hardware taken out. No other complaints at this time. Patient still pending PICC line. Ordered PT. Exam Vital Signs Temp Pulse Resp BP Pulse Ox O2 Del Method O2 Flow Rate 97.0 F 76 17 116/69 97 Room Air 4 10/06/24 08:00 10/06/24 08:00 10/06/24 08:00 10/06/24 08:00 10/06/24 08:00 10/06/24 08:00 10/02/24 14:23 Narrative Exam General: A/O x3, no acute distress, well-nourished, well-developed Eyes: PERRL, EOMI. Anicteric, vision grossly intact. Ears: No ear pain, no ear discharge, Hearing grossly intact. Nose: No nasal discharge. Mouth/Throat: Dry mucous membranes, no redness, no lesions. Neck: Neck supple, non-tender, no cervical lymphadenopathy. Lungs: Clear VARUN to auscultation and percussion, No accessory muscle use. Cardio: Normal S1/S2, regular rhythm, systolic murmur, no JVD Abdomen: Soft, non-tender, no palpable masses, peristalsis present, no guarding or rebound. Extremities: Symmetrical, no significant deformities, no peripheral edema , peripheral pulses presents. R LE covered clean dressing and drainage in place with minimal drainage. Skin: No rashes, no lesions, warm to touch. Neuro: No focal neurological deficits. motor and sensory intact Psych: Cooperative, appropriate mood and effect. Objective Labs 10/07/24 05:05 10/07/24 05:05 Labs: Laboratory Results - last 24 hr 10/06/24 05:16 WBC 12.7 H RBC 3.16 L Hgb 8.8 L Hct 27.9 L MCV 88 MCH 27.8 MCHC 31.5 RDW Std Deviation 44.3 Plt Count 592 H D Neut % (Auto) 74 Lymph % (Auto) 14 [place] % (Auto) 8 Eos % (Auto) 2 Baso % (Auto) 1 Neut # (Auto) 9.4 H Lymph # (Auto) 1.8 [place] # (Auto) 1.0 H Eos # (Auto) 0.2 Baso # (Auto) 0.1 Immature Gran # (Auto) 0.22 H Absolute Nucleated RBC 0.00 Immature Gran % 2 H Nucleated RBC % 0 Sodium 137 Potassium 4.5 Chloride 106 Carbon Dioxide 22.9 Anion Gap 8 BUN 32 H Creatinine 0.6 Estim Creat Clear Calc 78.1 eGFR > 60 BUN/Creatinine Ratio 53 H Glucose 87 Calculated Osmolality 279 Calcium 9.4 Corrected Calcium 9.8 Total Bilirubin 0.2 L AST 31 ALT 23 Alkaline Phosphatase 122 H Total Protein 6.7 Albumin 3.5 Globulin 3.2 Albumin/Globulin Ratio 1.1 L Quality Measures Quality Measures none Advance care planning discussed with:: patient Assessment & Plan Assessment Current Active Medications: Generic Name Dose Route Start Last Admin Trade Name Freq PRN Reason Stop Dose Admin Acetaminophen 650 mg 09/30/24 17:04 10/03/24 17:59 Acetaminophen 325 Mg Tablet PO 10/30/24 17:03 650 mg Q6H PRN Administration pain and Fever >100.4 Protocol Heparin Sodium (Porcine) 5,000 unit 09/30/24 22:00 10/06/24 05:06 Heparin Sod Inj 5000 Unit/Ml Vial SC 10/14/24 21:59 5,000 unit Q8HR OPAL Administration Ceftriaxone Sodium 2 gm/ 50 mls @ 100 mls/hr 10/03/24 11:30 10/05/24 08:47 Sodium Chloride IV 10/10/24 11:29 100 mls/hr QDAY OPAL Administration Losartan Potassium 50 mg 10/02/24 09:00 10/05/24 08:47 Losartan Potassium 25 Mg Tablet PO 11/01/24 08:59 50 mg QDAY OPAL Administration Ondansetron HCl 4 mg 09/30/24 17:04 Ondansetron Inj 2 Mg/Ml Inj 2 Ml IV 10/30/24 17:03 Q6H PRN NAUSEA OR VOMITING Protocol Sennosides 1 tab 09/30/24 17:04 Senna Tablet PO 10/30/24 17:03 QDAY PRN constipation Protocol Plan 69-year-old female with past medical history of prior right knee replacement, hypertension, arthritis, ventral hernias, and chronic anemia is admitted to the hospital on 09/30/2024 for R knee abscess. #Right knee abscess s/p I&D #Septic joint #Leukocytosis #History of right knee replacement ? Initially patient started having pain around 24 September and then she developed swelling as well as drainage of thick yellowish fluid. ?Patient had prior total knee replacement in 2017 which could indicate that there could be bacterial seeding in the metal artifacts. ? Prior episode of abscess in April, was prescribed oral antibiotics and resolved in 3 weeks. ? WBC 20.1 at admission ? Lactic acid 0.7 ? 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 - I & D on 10/02/2024, patient had pus coming out when incision was made and there was a small orifice towards the joint which also has some pus coming out. ? Discontinued vancomycin[09/30/2024?] Plan: -Continue Rocephin 2 gm Iv qday for a total of 6 weeks[10/03/2024-11/14/2024] ? Wound care ordered ?PICC line insertion ordered -PT ordered -May need transfer to a tertiary care center if removal of hardware is need as per orthopedic surgery. ? Orthopedic surgeon consulted, appreciate recommendations - ID consulted, appreciate recommendations #Chronic normocytic normochromic anemia ?Patient has baseline hemoglobin of around 10. ?Per patient she takes iron due to anemia ? Hemoglobin this admission is 8.2 -Hgb today 8.8 ?no active signs of bleeding. Plan: ? Will transfuse hemoglobin less than 7 -PRBC ready in case of need of transfusion ? Will continue to monitor #Hx of hypertension ? Patient's blood pressure on admission is 129/77 ? Patient takes clonidine 0.1 mg at home Plan: ? Continue losartan to 50mg daily ? Will continue to monitor Disposition: Patient pending PICC line Diet: regular GI prophylaxis: not indicated DVT prophylaxis: heparin sc Code:Full Case disclosed with Attending Dr. Chamberlain and My senior Dr. Corral PGY3. Abram Thorne PGY1 Attending Provider Attestation/Addendum I have examined the patient, reviewed labs and imaging findings, discussed the case with the resident(s), and reviewed entered orders. I agree with the plan of care as outlined in this note, with these additional summaries/recommendations: Patient seen at bedside. No acute overnight events. Patient has no new symptoms to report today. Patient is status post irrigation and debridement of right knee and Hemovac placed. Medical team discussed with orthopedics and we will remove hemovac today and start physical therapy. Intraoperative cultures were taken and grew klebsiella pneumoniae. infectious disease following and recommends 6 weeks IV rocephin 2 gm QD with weekly cbc, renal panel and ESR. 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 Continue IV antibiotics. Patient will go for PICC line placement today. Blood cultures show no growth. Continue home antihypertensives and pain management. Repeat chemistry and hematology panel in AM. Dr. Chamberlain
[2024-10-06] MEDS: LOSARTAN POTASSIUM 25 MG TABLET 50 MG PO (10:37)
[2024-10-06 12:21] LABS: Quantiferon-TB* See Sep Rpt
--- NOTE | 2024-10-06 12:25 | ESCONSULT_ITS ---
RE: RIA MAHONEY : 1955 DATE OF CONSULTATION: 10/06/2024 REFERRING PHYSICIAN: Randy Pascual MD and also Primary Team REASON FOR CONSULTATION: Positive culture of the joint with negative gram stain. HISTORY OF PRESENT ILLNESS: The patient is an unfortunate 69-year-old with purulence noted from the knee joint with negative gram stain. She hopes to go home and receive followup as outpatient with Dr. Braun. PAST MEDICAL HISTORY: Include 4, para 4 with four C-sections and prior ventral hernia repair. She has some hypertension as well. SURGICAL HISTORY: Includes C-sections x4 and prior ventral hernia repair many years ago. ALLERGIES: NONE NOTED. IMMUNIZATIONS: Last tetanus is not known. She has had flu shot every year. She has had four 4 COVID vaccines and has not had pneumococcal vaccine or recollection. FAMILY HISTORY: Positive for hypertension. SOCIAL HISTORY: Her is a nonsmoker. She hopes to finish her rehab at home. PHYSICAL EXAMINATION: She has limited range of motion of the right knee. There is a drain present is draining serosanguineous material. ASSESSMENT AND RECOMMENDATIONS: Overall, I have low index suspicion for cocci or tb, but we will go ahead and screen for those germs grow very slowly if at all, so I am going to order those tests to be done today. She may finish treatment at home if we are going to give her treatment. If the problem persists, she may need to have the device formally removed, which is possible. It does not look for the operative report like it was removed, but the patient believes that it was. I will check on her if she remains, but otherwise if she goes home, there is no need for followup with infectious disease. Please get a weekly CBC, renal panel, and sed rate to monitor her treatment and remove the line at the end of treatment. There is no need for suppressive long-term treatment, but I will defer that to Dr. Braun as the knee was placed in 2018 and this is an older one so problem is probably going to persist. DT: 10:59:37 TT: 11:29:00 Ref: [id number] - TID: [id number] [facility]
--- NOTE | 2024-10-06 12:45 | PC.SS ---
Addendum entered by Shahida Ko 10/06/24 16:21: SS spoke to patient and at bedside to clarify d/c plans. They do not want SNF. Patient wants home health. SS contacted other daughter, Susan @ [phone] to see if she will be helping administer the i.v. for picc line. She is willing to be trained. She works during the day, so evenings will be better for her to be trained and continuing administering i.v. Patient pending HH w/i.v. antibiotics. Original Note: Rounding note: Patient pending picc line and ortho rec's.
[2024-10-06] MEDS: ACETAMINOPHEN 325 MG TABLET 650 MG PO ×2 (13:04→19:44)
[2024-10-06 13:27] LABS: Cocci Serology, IgM Negative (Negative)
--- NOTE | 2024-10-06 13:33 | XR_ITS ---
Examination: Ultrasound-guided needle placement right cephalic vein. Dual-lumen central line placement (PICC line). Fluoroscopy AP chest, portable, single view Exam date and time:October 06, 2024 at 1351 hours INDICATIONS: Need for long-term intravenous antibiotic therapy A timeout was completed verifying correct patient, procedure, site, positioning Informed consent provided Technique: The patient's site was prepped and draped in sterile fashion. Maximum Sterile Barrier Technique used including cap, mask, sterile gown, sterile gloves, and sterile full body drape. If ultrasound technique used: sterile gel and sterile probe covers. Hand Hygiene performed using proper scrub, soap and water, or alcohol-based hand rub. Site right portable apparatus utilized to confirm patency of the right cephalic vein Utilizing ultrasonographic guidance successful 21-gauge needle puncture right cephalic vein Ultrasound images recorded and stored. 5 cc 1% lidocaine administered for local anesthetic. Successful micropuncture with a 21-gauge needle is performed. 0.18 wire guide is then introduced into the SVC under fluoroscopic guidance. Dual-lumen catheter dilator is then introduced, followed by the catheter in the SVC and proper position under fluoroscopic guidance. Successful aspiration of blood and flushing with heparinized saline is then performed in the 2 venous limbs. The catheter sutured in place. Findings: Under fluoroscopy, the tip of the catheter is in good position in the vena cava. Portable chest x-ray, post line placement is ordered. Estimated blood loss 3 cc The patient tolerated the procedure well and was in stable and satisfactory condition at completion of the procedure Impression: Successful ultrasound-guided needle placement right cephalic vein Successful placement of dual lumen central line, percutaneous Fluoroscopy 0.1 minute radiation dose 0.65 milligray 1 spot fluoroscopic chest film. AP chest completion procedure demonstrates satisfactory position central line. May use central line.
[2024-10-06] MEDS: HEPARIN SOD LOCK SYR 100 UNIT/ML 500 UNIT IV (14:40)
[2024-10-06] MEDS: LIDOCAINE INJ PF 1% 30 ML VIAL INFL (14:47)
--- NOTE | 2024-10-06 19:34 | ESPR_ITS ---
RE: RIA MAHONEY : 1955 DATE OF SERVICE: 10/03/2024 The patient was seen by me again on 10/03/2024. Wound was looking healthy. Dressing change was done. Hemoglobin drain was removed. We are awaiting for wound culture sensitivity. The patient may be mobilized over the weekend with the help of physical therapist. DT: 17:25:01 TT: 19:32:00 Ref: [id number] - TID: [id number]
--- NOTE | 2024-10-06 19:49 | PC.NURSE ---
called Dr. Braun to let him know that pt was complaining of pain 04/02 but was unable to get a hold from him. Dr Salmon was made aware about pt's pain.
--- NOTE | 2024-10-06 20:00 | ESPR_ITS ---
RE: DENZELRIA : 1955 DATE OF SERVICE: 10/04/2024 The patient is status post I and D of the right region. The patient was seen by me again on 10/04/2024. Wound is looking healthy. White cell count has come to 11.1. The patient is explained that probably she might need a transfer if the pus starts coming out. DT: 17:25:53 TT: 19:58:00 Ref: [id number] - TID: [id number]
--- NOTE | 2024-10-06 20:17 | ESPR_ITS ---
RE: DENZELRIA : 1955 DATE OF SERVICE: 10/06/2024 The patient was seen by me again on 10/06/2024. White cell count has gone up to 12.7. Pulse is a bit more pouring out. Dressing change was done. I explained to the patient and the family that she will almost certainly need another operation to take out the implant and do the revision, but it is a two-stage procedure. I explained that I do not do this kind of surgery. I may have to take second opinion or transfer her out. The brand planner is being informed to try to transfer her as soon as possible. DT: 17:27:01 TT: 20:15:00 Ref: [id number] - TID: [id number]
[2024-10-06] MEDS: HYDROcodone/APAP 5/325 TABLET 1 TAB PO (21:18)
[2024-10-07] VITALS (7 sets, daily range): BP systolic 97–122; BP diastolic 57–69; PULSE 66–84; RESP 16–18; TEMP 35.9–36.8; O2SAT 94–98; BMI 14.0
[2024-10-07] MEDS: IBUPROFEN TAB 400 MG TABLET 800 MG PO (03:53)
[2024-10-07] MEDS: HEPARIN SOD INJ 5000 UNIT/ML VIAL SC ×3 (05:28→21:08)
[2024-10-07 05:46] LABS: Basophils # (Auto) 0.1 Thou/mm3 (0.0-0.2); Basophils % (Auto) 1 % (0-2.5); Eosinophils # (Auto) 0.2 Thou/mm3 (0.0-0.5); Eosinophils % (Auto) 2 % (0-10); Hematocrit 27.8 % (36.0-46.0); Immature Granulocytes % (Auto) 1 % (0-0); Immature Granulocytes Auto 0.15 Thou/mm3 (0.00-0.00); Lymphocytes # (Auto) 1.6 Thou/mm3 (1.0-4.8); Lymphocytes % (Auto) 15 % (10-50); Mean Corpuscular HGB Conc 31.3 g/dl (31.0-37.0); Mean Corpuscular Hemoglobin 27.2 pg (25.0-35.0); Mean Corpuscular Volume 87 fL (80-100); Monocytes # (Auto) 1.2 Thou/mm3 (0.0-0.8); Monocytes % (Auto) 11 % (0-12); Neutrophils # (Auto) 7.8 Thou/mm3 (1.8-7.7); Neutrophils % (Auto) 71 % (37-80); Nucleated Red Blood Cell % 0 /100 WBC (0); Platelet Count 504 Thou/mm3 (140-440); RDW Standard Deviation 43.3 fL (36.4-46.3)
[2024-10-07 05:51] LABS: Hemoglobin 8.7 g/dL (12.0-16.0)
[2024-10-07 06:21] LABS: Alanine Aminotransferase 32 U/L (10-49); Albumin, Serum 3.6 gm/dL (3.4-4.8); Albumin/Globulin Ratio 1.2 (1.2-2.2); Alkaline Phosphatase 124 U/L (46-116); Anion Gap 9 (7-16); Aspartate Amino Transferase 30 U/L (0-34); BUN/Creatinine Ratio 59 Ratio (12-20); Bilirubin,Total 0.2 mg/dL (0.3-1.2); Blood Urea Nitrogen 41 mg/dL (9-23); Calcium 9.2 mg/dL (8.3-10.6); Calcium (Corrected) 9.5 mg/dL (8.5-10.1); Carbon Dioxide 21.9 mMol/L (20.0-31.0); Chloride 106 mMol/L (98-107); Creatinine (Component) 0.7 mg/dL (0.6-1.3); Glucose 91 mg/dL (74-106); Osmolality,Calculated 283 (275-295); Potassium 4.7 mMol/L (3.4-5.1); Sodium 137 mMol/L (136-145); Total Protein 6.6 gm/dL (5.7-8.2); eGFR > 60 See Note
--- NOTE | 2024-10-07 07:24 | PC.NURSE ---
called Dr. Braun to notify him about pt's complain of pain 8-10 during this shift, new orders for pt, see MAR.
[2024-10-07] MEDS: LOSARTAN POTASSIUM 25 MG TABLET 50 MG PO (09:27)
[2024-10-07] MEDS: HYDROcodone/APAP 5/325 TABLET 1 TAB PO ×2 (10:16→21:07)
--- NOTE | 2024-10-07 12:20 | PC.CM ---
Addendum entered by Pan Ortiz RN 10/07/24 19:54: 1936 received call from [place] financial counsellor Tatyana to get prior auth in order to transfer the pt. I asked her accepting info to get prior auth. She stated they need prior auth first before presenting the case. She stated once auth is obtained she can be reached at [phone]. Addendum entered by Pan Ortiz RN 10/07/24 19:33: 1927 received call from Malina at [facility] wants to speak to Dr. Dewey and connect her orthoplasty surgeon Dr. Herber Kim for peer to peer. Conference call connected. Dr. Craven stated pt need multiple surgeries atleast 2 for sure. Geographically it would be difficult for the pt to follow up with him since it's a [address]. He stated to contact [facility] since they can offer they same kind of surgery as [facility]. Dr. Craven stated to contact [facility]. If [facility] declines or pt is not accepted at any other hospital, Dr. Craven stated he is automation developer all week and will be happy to help. Transfer nurse Malina stated that she can put a clinical hold on the transfer request for now and transfer center can reopen the case if transfer is still needed. Addendum entered by Pan Ortiz RN 10/07/24 18:39: 1839 clinicals sent to . Addendum entered by Pan Ortiz RN 10/07/24 18:34: 1829 called , spoke to Niharika and initiated the transfer request. She stated to fax clinicals. Addendum entered by Pan Ortiz RN 10/07/24 18:28: 1827 Dr. Kennedy called back and stated he discussed it with his team and orthopedic and to continue looking for transferring the pt. Addendum entered by Pan Ortiz RN 10/07/24 18:23: [address] Kennedy, he stated he is going to discuss with his team and orthopedic surgeon and let me know the outcome. Addendum entered by Pan Ortiz RN 10/07/24 18:00: 1757 called [facility], spoke to [facility] and initiated the transfer request. She wants me to connect her provider with Dr. Corral for peer to peer. Spoke to Dr. Felder covering for Dr. Corral. Dr. Felder stated to call Dr. Kennedy on his direct number. I called Dr. Kennedy and connected him with transfer center and he did peer to peer with Dr. Witt at [facility]. Dr. Witt stated pt doesn't need hospital to hospital transfer. Pt is stable, no septic, getting abx. Pt can follow up as outpatient. Addendum entered by Pan Ortiz RN 10/07/24 17:54: 1754 clinicals sent to [facility]. Addendum entered by Pan Ortiz RN 10/07/24 17:37: 1747 received call from Apryl at [facility], she stated transfer is decline due to capacity. 1740 clinicals sent to [facility]. 1725 called [facility], spoke to [facility] and initiated the transfer request. She stated just to fax the clinicals. Addendum entered by Pan Ortiz RN 10/07/24 17:22: 1551 received call from Brit from [facility]. She stated pt is declined due to capacity. Addendum entered by Pan Ortiz RN 10/07/24 13:54: 1353 face sheet faxed to [facility]. 1343 called [facility], spoke to Brit and initiated the transfer request. She stated just to fax the face sheet for now. Addendum entered by Pan Ortiz RN 10/07/24 12:34: 1234 images pushed to [facility] via [facility]. Addendum entered by Pan Ortiz RN 10/07/24 12:33: 1233 clinicals sent to [facility]. Original Note: 1159 Called [facility], spoke to Criss and initiated the transfer request. She stated to fax clinicals and push images. [address] Corral that pt needs to be transferred to [facility] for right knee hardware removal.
--- NOTE | 2024-10-07 13:47 | ESDS_ITS ---
<Statement entered by Ike Corral MD - 10/07/24 14:00> I discussed with and supervised my co-resident involved in the care of this patient. I agree with the assessment and plan as documented above. Ike Corral,PGY-3 Disclaimer: Despite multiple revisions, due to the dictation software being used, the document below may not be free of grammatical errors including phonetic/typographic errors. However, this does not deter from our commitment to providing health care in the patient's best interest in mind. Planned Discharge Date 10/07/24 DS: Providers Provider Date of admission: 09/30/24 17:04 Primary care physician: Stanley Huston MD Admitting Provider: Angel Goddard MD Attending Provider on Admission: Danial Chamberlain MD Consults: 09/30/24 16:32 Consult to Orthopedic Stat Comment: Consulting Provider: Randy Pascual 09/30/24 17:59 Referral Wound Care Routine Comment: 10/03/24 13:31 Consult to Infectious Diseases Routine Comment: Consulting Provider: Srinivasa Spencer 10/06/24 14:50 Referral Physical Therapy Routine Comment: after drain is out can we please do weight bearing Physician Instructions: 10/07/24 07:00 Referral Wound Care Urgent Comment: 10/07/24 10:06 Referral - Rn Clinical Stat Service Needed for Transfer: Orthopedics transplant Addl Comments:: The patient needs Rt knee hardware taken out at [place] level of care. Attending Provider on DC: Danial Chamberlain MD Discharging Provider: Danial Chamberlain MD DS: Diagnosis Problem List Completed Was Problem List Reviewed/Reconciled?: Yes Hospital Course Hospital Course Hospital course: 69-year-old female with past medical history of prior right knee replacement, hypertension, arthritis, ventral hernias, and chronic anemia is admitted to the hospital on 09/30/2024 for R knee abscess. Patient came into the ED with complaints of right knee pain as well as swelling and draining pus. Initially was afebrile and normotensive. Initial labs were relevant for leukocytosis (20.1) and anemia (8.2). 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 Orthopedic surgeon was consulted and performed an I & D on 10/02/2024 in which patient had pus coming out when incision was made and there was a small orifice towards the joint which also has some pus coming out. After I & D patient had a drainage in place before it was taken out by orthopedic surgeon. Patient received antibiotics guided by wound cultures that grew K. pneumoniae. Infe ctious disease specialist was also consulted and recommended 6 weeks of IV antibiotics with Rocephin 2 gm Iv qday for a total of 6 weeks[10/03/2024- 11/14/2024]. Patient underwent successful PICC line insertion for continuation of antibiotics. Orthopedic surgeon requested patient to be transferred to a higher level of care center given that patient will require knee revision which could involve taking out the hardware. At the time of transfer patient was stable enough to be transferrred to a higher level of care center. Dispo:pending transfer to higher center Problems list: #Right knee abscess s/p I&D #Septic joint #Leukocytosis #History of right knee replacement #Chronic normocytic normochromic anemia #Hx of hypertension Case disclosed with Attending Dr. Chamberlain and My senior Dr. Corral PGY3. Abram Thorne PGY1 Status at Discharge Overall status at discharge: patient is progressing back to baseline Time Spent with Patient Time attestation: Total time spent providing and/or coordinating discharge services:>35 min Exam Vital Signs Temp Pulse Resp BP Pulse Ox O2 Del Method O2 Flow Rate 97.2 F 66 18 104/60 98 Room Air 4 10/07/24 08:00 10/07/24 09:27 10/07/24 08:00 10/07/24 09:27 10/07/24 08:00 10/07/24 08:00 10/02/24 14:23 Narrative Exam General: A/O x3, no acute distress, well-nourished, well-developed Eyes: PERRL, EOMI. Anicteric, vision grossly intact. Ears: No ear pain, no ear discharge, Hearing grossly intact. Nose: No nasal discharge. Mouth/Throat: Dry mucous membranes, no redness, no lesions. Neck: Neck supple, non-tender, no cervical lymphadenopathy. Lungs: Clear VARUN to auscultation and percussion, No accessory muscle use. Cardio: Normal S1/S2, regular rhythm, systolic murmur, no JVD Abdomen: Soft, non-tender, no palpable masses, peristalsis present, no guarding or rebound. Extremities: Symmetrical, no significant deformities, no peripheral edema , peripheral pulses presents. R LE covered clean dressing. Skin: No rashes, no lesions, warm to touch. Neuro: No focal neurological deficits. motor and sensory intact Psych: Cooperative, appropriate mood and effect. Discharge Plan Plan Patient Disposition: Home w/HOME HEALTH Disposition Comment: PT and IV medication Care Plan Goals: Please follow-up with your PCP within 1 week of discharge. Please follow-up with orthopedic Dr. Braun within 1 to 2-week of discharge You have been started on: -Ceftriaxone 2 g daily until 11/14/2024 -Acetaminophen 650 Mg every 6 hourly as needed for pain We have held your clonidine 0.1 Mg tablets twice daily because of your borderline low blood pressure, please discuss regarding this with your PCP to resume it. -Continue with all other medicines as prescribed before -Recommended to return back to emergency department if your symptoms persist or does not improve. Prescriptions/Referrals Prescriptions/Med Rec: New acetaminophen 325 mg Tablet 650 mg PO Q6H PRN (Reason: pain and Fever >100.4) 30 Days Qty: 100 0RF ceftriaxone 2 gram recon soln 2 g IV QDAY 37 Days Qty: 37 0RF Rx Instructions: To be continued until 11/14/2024. Thank you. Continued methocarbamol 500 mg Tablet 500 mg PO BID Rx Instructions: For 30 days Filled 08/24/24 calcium carbonate [Calcium 600] 600 mg calcium (1,500 mg) Tablet 600 mg PO BID benazepril 20 mg Tablet 20 mg PO BID ibuprofen 800 mg Tablet 800 mg PO Q8H PRN (Reason: Pain) 14 Days Qty: 28 0RF Held clonidine HCl 0.1 mg Tablet 0.1 mg PO BID Hold Instructions: Resume on 10/13/24. Referrals: Stanley Huston MD [Primary Care Provider] - Randy Pascual MD [Physician] - Patient/Caregiver Discharge Instructions Discharge Activity: as per physical therapy Print Language: Kuwaiti Stand Alone Forms: [employer] Award Info., Patient Portal Info Letter Quality Discharge Quality Measures VTE prophylaxis Attestestation Attestation I have examined the patient, reviewed labs and imaging findings, discussed the case with the resident(s), and reviewed entered orders. I agree with the plan of care as outlined in this note, with these additional summaries/recommendations: Patient seen at bedside. No acute overnight events. Patient has no new symptoms to report today. Patient is status post irrigation and debridement of right knee on 10/03/24 with orthopedics. Intraoperative cultures were taken and grew klebsiella pneumonia . infectious disease following and recommends 6 weeks IV rocephin 2 gm QD with weekly cbc, renal panel and ESR. 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 Orthopedics now recommending transfer (10/07/23) and transfer nurse notified. Continue IV antibiotics. S/P PICC line placement. Blood cultures show no growth. Continue home antihypertensives and pain management. Repeat chemistry and hematology panel in AM. Dr. Chamberlain
[2024-10-08] VITALS (7 sets, daily range): BP systolic 104–128; BP diastolic 59–69; PULSE 72–84; RESP 16–19; TEMP 36.1–36.6; O2SAT 94–97; BMI 14.0
[2024-10-08] MEDS: HYDROcodone/APAP 5/325 TABLET 1 TAB PO ×2 (04:11→17:01)
[2024-10-08] MEDS: HEPARIN SOD INJ 5000 UNIT/ML VIAL SC ×3 (05:28→21:15)
[2024-10-08 05:43] LABS: Basophils # (Auto) 0.1 Thou/mm3 (0.0-0.2); Basophils % (Auto) 1 % (0-2.5); Eosinophils # (Auto) 0.2 Thou/mm3 (0.0-0.5); Eosinophils % (Auto) 2 % (0-10); Hematocrit 27.1 % (36.0-46.0); Immature Granulocytes % (Auto) 1 % (0-0); Lymphocytes # (Auto) 1.7 Thou/mm3 (1.0-4.8); Lymphocytes % (Auto) 17 % (10-50); Mean Corpuscular HGB Conc 31.4 g/dl (31.0-37.0); Mean Corpuscular Hemoglobin 27.8 pg (25.0-35.0); Mean Corpuscular Volume 89 fL (80-100); Monocytes # (Auto) 0.9 Thou/mm3 (0.0-0.8); Monocytes % (Auto) 9 % (0-12); Neutrophils % (Auto) 70 % (37-80); Nucleated Red Blood Cell % 0 /100 WBC (0); Platelet Count 475 Thou/mm3 (140-440); Red Blood Count 3.06 Miln/mm3 (4.00-5.20); White Blood Count 10.1 Thou/mm3 (3.6-11.0)
[2024-10-08 05:48] LABS: Hemoglobin 8.5 g/dL (12.0-16.0)
[2024-10-08 06:11] LABS: Alanine Aminotransferase 29 U/L (10-49); Albumin, Serum 3.7 gm/dL (3.4-4.8); Albumin/Globulin Ratio 1.2 (1.2-2.2); Alkaline Phosphatase 119 U/L (46-116); Anion Gap 6 (7-16); Aspartate Amino Transferase 23 U/L (0-34); BUN/Creatinine Ratio 67 Ratio (12-20); Bilirubin,Total 0.2 mg/dL (0.3-1.2); Blood Urea Nitrogen 40 mg/dL (9-23); Calcium 9.6 mg/dL (8.3-10.6); Calcium (Corrected) 9.8 mg/dL (8.5-10.1); Carbon Dioxide 24.6 mMol/L (20.0-31.0); Chloride 105 mMol/L (98-107); Creatinine (Component) 0.6 mg/dL (0.6-1.3); Estimated Creatinine Clearance 78.1 mL/min (>60); Globulin 3.1 gm/dL (2.3-3.5); Glucose 89 mg/dL (74-106); Osmolality,Calculated 280 (275-295); Potassium 4.8 mMol/L (3.4-5.1); Sodium 136 mMol/L (136-145); Total Protein 6.8 gm/dL (5.7-8.2); eGFR > 60 See Note
--- NOTE | 2024-10-08 07:18 | PC.CM ---
Addendum entered by Pan Ortiz RN 10/08/24 19:34: 1934 received call from Anabella at [facility] [place]/[facility]. She stated the transfer is declined due to out of scope for the ortho. Addendum entered by Pan Ortiz RN 10/08/24 19:05: 1900 received call from Criss at [facility] [[email or web address] that pt is accepted. Accepted by Dr. Joaquín Craven. Criss stated she will fax me the TBA and she wants the insurance auth for the transfer from insurance/[employer]. NPI for [facility] is [id number], Tax ID [id number]. NPI for Dr. Joaquín Craven is [id number]. Addendum entered by Pan Ortiz RN 10/08/24 17:45: 1745 sent clinicals to [facility] [place]. Addendum entered by Pan Ortiz RN 10/08/24 15:45: 1533 called [facility] [place], spoke to Lanette and initiated the transfer. She stated to fax the clinicals to [phone]. Addendum entered by Pan Ortiz RN 10/08/24 15:28: 1526 received call from Janel at [facility] [[email or web address]] inquiring about if I tried [facility] or any other places. I informed her that [facility] denied due to the fact the orthopedic respiratory care practitioner doesn't do revisions. I also informed that I called [facility] with the request, pending call back. She stated she will update her ortho team. Addendum entered by Pan Ortiz RN 10/08/24 15:16: 1512 called [facility] to initiate the transfer, left VM with automated system for transfer request. Also faxed face sheet to [facility] per automated system instructions. Addendum entered by Pan Ortiz RN 10/08/24 15:02: 1500 Unable to work on the transfer until now due to the fact that busy with ER transfers including stat. 0903 received call from Sobeida at [facility], she stated transfer request is denied due to the orthopedic respiratory care practitioner doesn't do revisions. She stated to call back some other day if transfer is need when other orthopedic is on. But she is not sure until when the current orthopedic is on for. Addendum entered by Pan Ortiz RN 10/08/24 08:19: 0819 called [facility], spoke to Sobeida and initiated the transfer. Original Note: 0718 clinicals sent to [facility] [place] as per [facility] Dr. Craven recommendations.
[2024-10-08] MEDS: LOSARTAN POTASSIUM 25 MG TABLET 50 MG PO (09:27)
--- NOTE | 2024-10-08 11:06 | ESPR_ITS ---
<Statement entered by William Cruz MD - 10/13/24 07:58> I reviewed above note and agree with findings and plans. I have also personally examined the patient with medicine team and went over assessment and plan with medical team including international relations teacher and resident physician. <Statement entered by Ike Corral MD - 10/08/24 21:41> Patient has PICC line, will continue IV antibiotics. Still pending transfer for higher facility, Ortho on board . I discussed with and supervised my co-resident involved in the care of this patient. I agree with the assessment and plan as documented above. Ike Corral,PGY-3 Disclaimer: Despite multiple revisions, due to the dictation software being used, the document below may not be free of grammatical errors including phonetic/typographic errors. However, this does not deter from our commitment to providing health care in the patient's best interest in mind. Documentation for date of: 10/08/24 Subjective Subjective Interval history: Patient was seen at bedside this morning. No overnight events. Patient will need removal of hardware in the right knee therefore it is a complex surgery, which was discussed with the patient as well as of the necessity to transfer the patient. Patient still pending transfer as multiple attempts to transfer the patient have been unsuccessful. Patient at this time is not septic and WBCs are going down and she is receiving IV antibiotics. Will speak with orthopedic surgeon for next step in management, but will continue to try to transfer the patient to higher level of care facility. Exam Vital Signs Temp Pulse Resp BP Pulse Ox O2 Del Method O2 Flow Rate 97.0 F 76 16 126/69 94 L Room Air 4 10/08/24 08:00 10/08/24 09:27 10/08/24 08:00 10/08/24 09:27 10/08/24 08:00 10/08/24 08:00 10/02/24 14:23 Narrative Exam General: A/O x3, no acute distress, well-nourished, well-developed Eyes: PERRL, EOMI. Anicteric, vision grossly intact. Ears: No ear pain, no ear discharge, Hearing grossly intact. Nose: No nasal discharge. Mouth/Throat: Dry mucous membranes, no redness, no lesions. Neck: Neck supple, non-tender, no cervical lymphadenopathy. Lungs: Clear VARUN to auscultation and percussion, No accessory muscle use. Cardio: Normal S1/S2, regular rhythm, systolic murmur, no JVD Abdomen: Soft, non-tender, no palpable masses, peristalsis present, no guarding or rebound. Extremities: Symmetrical, no significant deformities, no peripheral edema , peripheral pulses presents. R LE covered by bandage. Skin: No rashes, no lesions, warm to touch. Neuro: No focal neurological deficits. motor and sensory intact Psych: Cooperative, appropriate mood and effect. Objective Labs 10/08/24 05:24 10/08/24 05:24 Labs: Laboratory Results - last 24 hr 10/08/24 05:24 WBC 10.1 RBC 3.06 L Hgb 8.5 L Hct 27.1 L MCV 89 MCH 27.8 MCHC 31.4 RDW Std Deviation 45.0 Plt Count 475 H Neut % (Auto) 70 Lymph % (Auto) 17 [place] % (Auto) 9 Eos % (Auto) 2 Baso % (Auto) 1 Neut # (Auto) 7.0 Lymph # (Auto) 1.7 [place] # (Auto) 0.9 H Eos # (Auto) 0.2 Baso # (Auto) 0.1 Immature Gran # (Auto) 0.10 H Absolute Nucleated RBC 0.00 Immature Gran % 1 H Nucleated RBC % 0 Sodium 136 Potassium 4.8 Chloride 105 Carbon Dioxide 24.6 Anion Gap 6 L BUN 40 H Creatinine 0.6 Estim Creat Clear Calc 78.1 eGFR > 60 BUN/Creatinine Ratio 67 H Glucose 89 Calculated Osmolality 280 Calcium 9.6 Corrected Calcium 9.8 Total Bilirubin 0.2 L AST 23 ALT 29 Alkaline Phosphatase 119 H Total Protein 6.8 Albumin 3.7 Globulin 3.1 Albumin/Globulin Ratio 1.2 Quality Measures Quality Measures VTE prophylaxis Advance care planning discussed with:: patient and spouse Assessment & Plan Assessment Current Active Medications: Generic Name Dose Route Start Last Admin Trade Name Freq PRN Reason Stop Dose Admin Acetaminophen 650 mg 09/30/24 17:04 10/06/24 19:44 Acetaminophen 325 Mg Tablet PO 10/30/24 17:03 650 mg Q6H PRN Administration pain and Fever >100.4 Protocol Hydrocodone Bitart/Acetaminophen 1 tab 10/07/24 07:22 10/08/24 04:11 Hydrocodone/Apap 5/325 Tablet PO 10/12/24 07:21 1 tab Q6HR PRN Administration PAIN 4-6 Heparin Sodium (Porcine) 5,000 unit 09/30/24 22:00 10/08/24 05:28 Heparin Sod Inj 5000 Unit/Ml Vial SC 10/14/24 21:59 5,000 unit Q8HR OPAL Administration Ceftriaxone Sodium 2 gm/ 50 mls @ 100 mls/hr 10/07/24 09:00 10/08/24 09:23 Sodium Chloride IV 11/10/24 12:00 100 mls/hr QDAY OPAL Administration Losartan Potassium 50 mg 10/02/24 09:00 10/08/24 09:27 Losartan Potassium 25 Mg Tablet PO 11/01/24 08:59 50 mg QDAY OPAL Administration Ondansetron HCl 4 mg 09/30/24 17:04 Ondansetron Inj 2 Mg/Ml Inj 2 Ml IV 10/30/24 17:03 Q6H PRN NAUSEA OR VOMITING Protocol Sennosides 1 tab 09/30/24 17:04 Senna Tablet PO 10/30/24 17:03 QDAY PRN constipation Protocol Plan 69-year-old female with past medical history of prior right knee replacement, hypertension, arthritis, ventral hernias, and chronic anemia is admitted to the hospital on 09/30/2024 for R knee abscess. #Right knee abscess s/p I&D #Septic joint #Leukocytosis #History of right knee replacement ? Initially patient started having pain around 24 September and then she developed swelling as well as drainage of thick yellowish fluid. ?Patient had prior total knee replacement in 2017 which could indicate that there could be bacterial seeding in the metal artifacts. ? Prior episode of abscess in April, was prescribed oral antibiotics and resolved in 3 weeks. ? WBC 20.1 at admission ? Lactic acid 0.7 ? 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 - I & D on 10/02/2024, patient had pus coming out when incision was made and there was a small orifice towards the joint which also has some pus coming out. ? Discontinued vancomycin[09/30/2024?] Plan: -Continue Rocephin 2 gm Iv qday for a total of 6 weeks[10/03/2024-11/14/2024] ? Wound care ordered -PT referred -Pending transfer ? Orthopedic surgeon consulted, appreciate recommendations - ID consulted, appreciate recommendations #Chronic normocytic normochromic anemia ?Patient has baseline hemoglobin of around 10. ?Per patient she takes iron due to anemia ? Hemoglobin this admission is 8.2 -Hgb today 8.5 ?no active signs of bleeding. Plan: ? Will transfuse hemoglobin less than 7 -PRBC ready in case of need of transfusion ? Will continue to monitor #Hx of hypertension ? Patient's blood pressure on admission is 129/77 ? Patient takes clonidine 0.1 mg at home Plan: ? Continue losartan to 50mg daily ? Will continue to monitor Disposition: Patient pending transfer, on IV abx. Diet: regular GI prophylaxis: not indicated DVT prophylaxis: heparin sc Code:Full Case disclosed with Attending Dr. Cruz and My senior Dr. Corral PGY3. Abram Thorne PGY1
[2024-10-08 13:48] LABS: Cocci Serology, IgG Negative (Negative)
--- NOTE | 2024-10-08 14:05 | PD.IDPROG ---
Subjective Subjective Interval history: kleb nearly mejia s, so daily rocepin ok. device not removed yet per notes. Exam Vital Signs Temp Pulse Resp BP Pulse Ox O2 Del Method O2 Flow Rate 97.3 F 73 17 128/68 96 Nasal Cannula 2 10/08/24 12:00 10/08/24 12:00 10/08/24 12:00 10/08/24 12:00 10/08/24 12:00 10/08/24 12:00 10/08/24 12:00 Narrative Exam not seen. data reviewed. Objective - Internal Medicine Labs 10/08/24 05:24 10/08/24 05:24 Labs: Laboratory Results - last 24 hr 10/06/24 10/08/24 12:08 05:24 WBC 10.1 RBC 3.06 L Hgb 8.5 L Hct 27.1 L MCV 89 MCH 27.8 MCHC 31.4 RDW Std Deviation 45.0 Plt Count 475 H Neut % (Auto) 70 Lymph % (Auto) 17 [place] % (Auto) 9 Eos % (Auto) 2 Baso % (Auto) 1 Neut # (Auto) 7.0 Lymph # (Auto) 1.7 [place] # (Auto) 0.9 H Eos # (Auto) 0.2 Baso # (Auto) 0.1 Immature Gran # (Auto) 0.10 H Absolute Nucleated RBC 0.00 Immature Gran % 1 H Nucleated RBC % 0 Sodium 136 Potassium 4.8 Chloride 105 Carbon Dioxide 24.6 Anion Gap 6 L BUN 40 H Creatinine 0.6 Estim Creat Clear Calc 78.1 eGFR > 60 BUN/Creatinine Ratio 67 H Glucose 89 Calculated Osmolality 280 Calcium 9.6 Corrected Calcium 9.8 Total Bilirubin 0.2 L AST 23 ALT 29 Alkaline Phosphatase 119 H Total Protein 6.8 Albumin 3.7 Globulin 3.1 Albumin/Globulin Ratio 1.2 Coccidioides IgG Ab Negative Assessment & Plan A&P Narrative knee abscess. cx with kleb but gram stain neg and nasal mrsa neg other problems as noted make sure overall status is good if not, optimize rx for other disease states given prior apparent failure of po rx. suggest iv rocephin 2 gm daily for 6 weeks from date of surgery. if recurs with same germ, may have to remove device completely which may have already occurred .original placement of device was about 2017, even if device removed, finish 6 weeks rx anyway (from date of surgery). please do weekly cbc, renal panel, esr and f/u with dr blue. no need to see ID. remove line at end of rx please. will see again prn. she wants to do her rehab at home, that is not my decision. will see again prn Time Spent With Patient Time: Total time spent is greater than 50% in coordination of care (as documented) at patient's floor/unit and/or counseling patient:
--- NOTE | 2024-10-08 22:58 | PC.NURSE ---
spoke with transfer center nurse, nurse states she was approved to go to [facility] but we are waiting on financial clearance which could take 3 days.
[2024-10-09] VITALS (7 sets, daily range): BP systolic 100–120; BP diastolic 59–69; PULSE 71–96; RESP 15–18; TEMP 36–36.5; O2SAT 94–96; BMI 14.0
[2024-10-09] MEDS: HYDROcodone/APAP 5/325 TABLET 1 TAB PO ×3 (03:38→21:59)
[2024-10-09] MEDS: HEPARIN SOD INJ 5000 UNIT/ML VIAL SC ×3 (05:06→21:49)
[2024-10-09 06:44] LABS: Alanine Aminotransferase 32 U/L (10-49); Albumin, Serum 3.6 gm/dL (3.4-4.8); Albumin/Globulin Ratio 1.2 (1.2-2.2); Alkaline Phosphatase 119 U/L (46-116); Anion Gap 8 (7-16); Aspartate Amino Transferase 27 U/L (0-34); BUN/Creatinine Ratio 62 Ratio (12-20); Bilirubin,Total 0.3 mg/dL (0.3-1.2); Blood Urea Nitrogen 37 mg/dL (9-23); Calcium 9.5 mg/dL (8.3-10.6); Calcium (Corrected) 9.8 mg/dL (8.5-10.1); Chloride 103 mMol/L (98-107); Creatinine (Component) 0.6 mg/dL (0.6-1.3); Estimated Creatinine Clearance 78.1 mL/min (>60); Globulin 2.9 gm/dL (2.3-3.5); Glucose 86 mg/dL (74-106); Osmolality,Calculated 277 (275-295); Potassium 4.5 mMol/L (3.4-5.1); Sodium 135 mMol/L (136-145); Total Protein 6.5 gm/dL (5.7-8.2); eGFR > 60 See Note
[2024-10-09 07:19] LABS: Basophils # (Auto) 0.1 Thou/mm3 (0.0-0.2); Basophils % (Auto) 1 % (0-2.5); Eosinophils # (Auto) 0.2 Thou/mm3 (0.0-0.5); Eosinophils % (Auto) 2 % (0-10); Hematocrit 28.7 % (36.0-46.0); Immature Granulocytes % (Auto) 1 % (0-0); Immature Granulocytes Auto 0.09 Thou/mm3 (0.00-0.00); Lymphocytes # (Auto) 1.4 Thou/mm3 (1.0-4.8); Lymphocytes % (Auto) 19 % (10-50); Mean Corpuscular HGB Conc 31.4 g/dl (31.0-37.0); Mean Corpuscular Hemoglobin 27.6 pg (25.0-35.0); Mean Corpuscular Volume 88 fL (80-100); Monocytes # (Auto) 0.8 Thou/mm3 (0.0-0.8); Monocytes % (Auto) 10 % (0-12); Neutrophils # (Auto) 5.2 Thou/mm3 (1.8-7.7); Neutrophils % (Auto) 68 % (37-80); Nucleated Red Blood Cell % 0 /100 WBC (0); Platelet Count 456 Thou/mm3 (140-440); RDW Standard Deviation 45.2 fL (36.4-46.3); Red Blood Count 3.26 Miln/mm3 (4.00-5.20); White Blood Count 7.7 Thou/mm3 (3.6-11.0)
--- NOTE | 2024-10-09 08:49 | PC.CM ---
Addendum entered by Maria Luz Cr RN 10/09/24 18:55: I left the Packet with CD on transfer nurse desk. Addendum entered by Maria Luz Cr RN 10/09/24 17:31: 1730 I called the transfer center at [facility] to follow up on transfer. They were able to verify they received the authorization and the transfer back agreement and discharge summary. They states the paperwork is still being processed. Once it is processed, then they will place patient on a list and will look for a bed. Addendum entered by Maria Luz Cr RN 10/09/24 15:00: I received a call from Alaina with [facility]. She states their medical facilities section director reviewed the information that I sent and he was able to approve the authorization. Alaina faxed me the information and I faxed over the transfer back agreement, authorization, and discharge summary to [facility]. Addendum entered by Maria Luz Cr RN 10/09/24 13:07: I received a call back from Radha with [facility]. She asked me to fax over supporting information. I faxed over paperwork today. Addendum entered by Maria Luz Cr RN 10/09/24 12:48: I was on hold for over 40 min waiting to speak to someone at [facility] phone number . I was finally able to speak to Braxton and I explained the situation to her. I needed to get authorization to send patient to [facility]. She stated I need to speak to Radha (mental health case manager on this case). She sent a message to Radha and she states Radha should be getting back to me. Addendum entered by Maria Luz Cr RN 10/09/24 10:41: I received a call from [facility] to follow up on transfer request. I let them know I am working with [facility], but I did not want to cancel the transfer with them until I got authorization from patient's insurance. I called [employer] to speak to them for authorization. Addendum entered by Maria Luz Cr RN 10/09/24 10:41: [facility] TC that pt is accepted. Accepted by Dr. Joaquín Craven. Criss stated she will fax me the TBA and she wants the insurance auth for the transfer from [employer]. NPI for [facility] is [id number], Tax ID [id number]. NPI for Dr. Joaquín Craven is [id number]. Original Note: I spoke to Elysia at [facility] transfer center. She states patient has been accepted medically by Dr. Joaquín Craven. We will need to clear patient financially before they will move forward. I let her know I will reach out to patient's insurance. She also asked that I have my doctor do a discharges summary. She states they do not have any beds at this time but we can get the transfer back agreement signed and sent back. I reached out to Dr. Silva and I asked that he complete a discharge summary.
[2024-10-09] MEDS: LOSARTAN POTASSIUM 25 MG TABLET 50 MG PO (09:45)
--- NOTE | 2024-10-09 11:13 | ESDS_ITS ---
<Statement entered by William Cruz MD - 10/14/24 12:10> I reviewed above note and agree with findings and plans. I have also personally examined the patient with medicine team and went over assessment and plan with medical team including buying intern and resident physician. Planned Discharge Date 10/09/24 DS: Providers Provider Date of admission: 09/30/24 17:04 Primary care physician: Stanley Huston MD Admitting Provider: Angel Goddard MD Attending Provider on Admission: William Cruz MD Consults: 09/30/24 16:32 Consult to Orthopedic Stat Comment: Consulting Provider: Randy Pascual 09/30/24 17:59 Referral Wound Care Routine Comment: 10/03/24 13:31 Consult to Infectious Diseases Routine Comment: Consulting Provider: Srinivasa Spencer 10/06/24 14:50 Referral Physical Therapy Routine Comment: after drain is out can we please do weight bearing Physician Instructions: 10/07/24 07:00 Referral Wound Care Urgent Comment: 10/07/24 10:06 Referral - Government Contracts Manager Stat Service Needed for Transfer: Orthopedics transplant Addl Comments:: The patient needs Rt knee hardware taken out at [facility] level of care. Attending Provider on DC: William Cruz MD Discharging Provider: William Cruz MD DS: Diagnosis Problem List Completed Was Problem List Reviewed/Reconciled?: Yes Hospital Course Hospital Course Hospital course: 69-year-old female with past medical history of prior right knee replacement, hypertension, arthritis, ventral hernias, and chronic anemia is admitted to the hospital on 09/30/2024 for R knee abscess. Patient came into the ED with complaints of right knee pain as well as swelling and draining pus. Initially was afebrile and normotensive. Initial labs were relevant for leukocytosis (20.1) and anemia (8.2). 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 Orthopedic surgeon was consulted and performed an I & D on 10/02/2024 in which patient had pus coming out when incision was made and there was a small orifice towards the joint which also has some pus coming out. After I & D patient had a drainage in place before it was taken out by orthopedic surgeon. Patient received antibiotics guided by wound cultures that grew K. pneumoniae. Infectious disease specialist was also consulted and recommended 6 weeks of IV antibiotics with Rocephin 2 gm Iv qday for a total of 6 weeks[10/03/2024- 11/14/2024]. Patient underwent successful PICC line insertion for continuation of antibiotics. Orthopedic surgeon requested patient to be transferred to a higher level of care center given that patient will require knee revision which could involve taking out the hardware. Patient and her spouse were explained the severity of the patient's current situation and the need for prompt medical intervention. They were understanding and all questions were answer. At the time of transfer patient was stable enough to be transferrred to a higher level of care center. Dispo:pending transfer to higher center Problems list: #Right knee abscess s/p I&D #Septic joint #Leukocytosis #History of right knee replacement #Chronic normocytic normochromic anemia #Hx of hypertension Case disclosed with Attending Dr. Cruz and My senior Dr. Silva PGY2. Abram Thorne PGY1 Senior Resident Attestation: I discussed with and supervised the buying intern physician involved in the care of this patient. I personally saw and examined the patient and discussed the assessment and plan with the entire medicine team, including my attending. I agree with the discharge plan as documented above. Roger iSlva MD PGY2 Internal Medicine Status at Discharge Overall status at discharge: patient is progressing back to baseline Time Spent with Patient Time attestation: Total time spent providing and/or coordinating discharge services:>35 min Exam Vital Signs Temp Pulse Resp BP Pulse Ox O2 Del Method O2 Flow Rate 96.8 F 71 17 105/61 96 Room Air 2 10/09/24 08:00 10/09/24 09:45 10/09/24 08:00 10/09/24 09:45 10/09/24 08:00 10/09/24 08:00 10/08/24 16:00 Narrative Exam General: A/O x3, no acute distress, well-nourished, well-developed Eyes: PERRL, EOMI. Anicteric, vision grossly intact. Ears: No ear pain, no ear discharge, Hearing grossly intact. Nose: No nasal discharge. Mouth/Throat: Dry mucous membranes, no redness, no lesions. Neck: Neck supple, non-tender, no cervical lymphadenopathy. Lungs: Clear VARUN to auscultation and percussion, No accessory muscle use. Cardio: Normal S1/S2, regular rhythm, systolic murmur, no JVD Abdomen: Soft, non-tender, no palpable masses, peristalsis present, no guarding or rebound. Extremities: Symmetrical, no significant deformities, no peripheral edema , peripheral pulses presents. R LE covered by bandage. Skin: No rashes, no lesions, warm to touch. Neuro: No focal neurological deficits. motor and sensory intact Psych: Cooperative, appropriate mood and effect. Discharge Plan Plan Patient Disposition: Home w/HOME HEALTH Disposition Comment: PT and IV medication Care Plan Goals: Please follow-up with your PCP within 1 week of discharge. Please follow-up with orthopedic Dr. Braun within 1 to 2-week of discharge You have been started on: -Ceftriaxone 2 g daily until 11/14/2024 -Acetaminophen 650 Mg every 6 hourly as needed for pain We have held your clonidine 0.1 Mg tablets twice daily because of your borderline low blood pressure, please discuss regarding this with your PCP to resume it. -Continue with all other medicines as prescribed before -Recommended to return back to emergency department if your symptoms persist or does not improve. Prescriptions/Referrals Prescriptions/Med Rec: New acetaminophen 325 mg Tablet 650 mg PO Q6H PRN (Reason: pain and Fever >100.4) 30 Days Qty: 100 0RF ceftriaxone 2 gram recon soln 2 g IV QDAY 37 Days Qty: 37 0RF Rx Instructions: To be continued until 11/14/2024. Thank you. Continued methocarbamol 500 mg Tablet 500 mg PO BID Rx Instructions: For 30 days Filled 08/24/24 calcium carbonate [Calcium 600] 600 mg calcium (1,500 mg) Tablet 600 mg PO BID benazepril 20 mg Tablet 20 mg PO BID ibuprofen 800 mg Tablet 800 mg PO Q8H PRN (Reason: Pain) 14 Days Qty: 28 0RF Held clonidine HCl 0.1 mg Tablet 0.1 mg PO BID Hold Instructions: Resume on 10/13/24. Referrals: Stanley Huston MD [Primary Care Provider] - Randy Pascual MD [Physician] - Patient/Caregiver Discharge Instructions Discharge Activity: as per physical therapy Print Language: Micronesian Stand Alone Forms: [employer] Award Info., Patient Portal Info Letter Quality Discharge Quality Measures VTE prophylaxis
--- NOTE | 2024-10-09 15:10 | PC.NURSE ---
Dr. Braun in to see pt, dressing changed by
--- NOTE | 2024-10-09 16:19 | PC.SS ---
Follow up note: Patient pending transfer. However, SS received a call late this afternoon by Ortho indicating he would like to d/c patient home tomorrow with i.v. antibiotics and patient can follow up with tertiary center for an o/p appt. However, spoke to Dr. Silva to inform and he spoke to Ortho again and they will proceed with transfer.
[2024-10-09] MEDS: SENNA TABLET 1 TAB PO (21:59)
[2024-10-10] VITALS (7 sets, daily range): BP systolic 94–115; BP diastolic 56–87; PULSE 66–85; RESP 15–18; TEMP 36.3–36.7; O2SAT 94–98; BMI 14.0
[2024-10-10] MEDS: HYDROcodone/APAP 5/325 TABLET 1 TAB PO ×2 (05:03→20:57)
[2024-10-10] MEDS: HEPARIN SOD INJ 5000 UNIT/ML VIAL SC ×3 (05:03→21:03)
[2024-10-10 06:43] LABS: Alanine Aminotransferase 32 U/L (10-49); Albumin, Serum 3.6 gm/dL (3.4-4.8); Albumin/Globulin Ratio 1.2 (1.2-2.2); Alkaline Phosphatase 115 U/L (46-116); Anion Gap 8 (7-16); Aspartate Amino Transferase 31 U/L (0-34); BUN/Creatinine Ratio 64 Ratio (12-20); Bilirubin,Total 0.2 mg/dL (0.3-1.2); Blood Urea Nitrogen 32 mg/dL (9-23); Calcium 9.4 mg/dL (8.3-10.6); Calcium (Corrected) 9.7 mg/dL (8.5-10.1); Carbon Dioxide 25.3 mMol/L (20.0-31.0); Chloride 104 mMol/L (98-107); Creatinine (Component) 0.5 mg/dL (0.6-1.3); Estimated Creatinine Clearance 93.7 mL/min (>60); Globulin 2.9 gm/dL (2.3-3.5); Glucose 82 mg/dL (74-106); Osmolality,Calculated 279 (275-295); Potassium 4.3 mMol/L (3.4-5.1); Sodium 137 mMol/L (136-145); Total Protein 6.5 gm/dL (5.7-8.2); eGFR > 60 See Note
[2024-10-10 08:30] LABS: Basophils # (Auto) 0.1 Thou/mm3 (0.0-0.2); Basophils % (Auto) 1 % (0-2.5); Eosinophils # (Auto) 0.2 Thou/mm3 (0.0-0.5); Eosinophils % (Auto) 2 % (0-10); Hematocrit 25.6 % (36.0-46.0); Immature Granulocytes % (Auto) 1 % (0-0); Immature Granulocytes Auto 0.06 Thou/mm3 (0.00-0.00); Lymphocytes # (Auto) 1.6 Thou/mm3 (1.0-4.8); Lymphocytes % (Auto) 21 % (10-50); Mean Corpuscular HGB Conc 31.3 g/dl (31.0-37.0); Mean Corpuscular Hemoglobin 27.5 pg (25.0-35.0); Mean Corpuscular Volume 88 fL (80-100); Monocytes # (Auto) 0.7 Thou/mm3 (0.0-0.8); Monocytes % (Auto) 9 % (0-12); Neutrophils # (Auto) 4.9 Thou/mm3 (1.8-7.7); Neutrophils % (Auto) 66 % (37-80); Nucleated Red Blood Cell % 0 /100 WBC (0); Platelet Count 435 Thou/mm3 (140-440); RDW Standard Deviation 45.2 fL (36.4-46.3); Red Blood Count 2.91 Miln/mm3 (4.00-5.20); White Blood Count 7.4 Thou/mm3 (3.6-11.0)
[2024-10-10 08:38] LABS: Magnesium 1.9 mg/dL (1.6-2.6)
--- NOTE | 2024-10-10 10:05 | ESDS_ITS ---
<Statement entered by William Cruz MD - 10/14/24 12:16> I reviewed above note and agree with findings and plans. I have also personally examined the patient with medicine team and went over assessment and plan with medical team including sports broadcasting internship and resident physician. Planned Discharge Date 10/10/24 DS: Providers Provider Date of admission: 09/30/24 17:04 Primary care physician: Stanley Huston MD Admitting Provider: Angel Goddard MD Attending Provider on Admission: William Cruz MD Consults: 09/30/24 16:32 Consult to Orthopedic Stat Comment: Consulting Provider: Randy Pascual 09/30/24 17:59 Referral Wound Care Routine Comment: 10/03/24 13:31 Consult to Infectious Diseases Routine Comment: Consulting Provider: Srinivasa Spencer 10/06/24 14:50 Referral Physical Therapy Routine Comment: after drain is out can we please do weight bearing Physician Instructions: 10/07/24 07:00 Referral Wound Care Urgent Comment: 10/07/24 10:06 Referral - Motorcycle Delivery Driver Stat Service Needed for Transfer: Orthopedics transplant Addl Comments:: The patient needs Rt knee hardware taken out at [facility] level of care. Attending Provider on DC: William Cruz MD Discharging Provider: William Cruz MD DS: Diagnosis Problem List Completed Was Problem List Reviewed/Reconciled?: Yes Hospital Course Hospital Course Hospital course: 69-year-old female with past medical history of prior right knee replacement, hypertension, arthritis, ventral hernias, and chronic anemia is admitted to the hospital on 09/30/2024 for R knee abscess. Patient came into the ED with complaints of right knee pain as well as swelling and draining pus. Initially was afebrile and normotensive. Initial labs were relevant for leukocytosis (20.1) and anemia (8.2). 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 Orthopedic surgeon was consulted and performed an I & D on 10/02/2024 in which patient had pus coming out when incision was made and there was a small orifice towards the joint which also has some pus coming out. After I & D patient had a drainage in place before it was taken out by orthopedic surgeon. Patient received antibiotics guided by wound cultures that grew K. pneumoniae. Infectious disease specialist was also consulted and recommended 6 weeks of IV antibiotics with Rocephin 2 gm Iv qday for a total of 6 weeks[10/03/2024- 11/14/2024]. Patient underwent successful PICC line insertion for continuation of antibiotics. Orthopedic surgeon requested patient to be transferred to a higher level of care center given that patient will require knee revision which could involve taking out the hardware. Patient and her spouse were explained the severity of the patient's current situation and the need for prompt medical intervention. They were understanding and all questions were answer. At the time of transfer patient was stable enough to be transferrred to a higher level of care center. 10/10/2024: Patient was stable seen at bedside today. No new complaints. No overnight events. Patient still pending transfer to higher center. Pain is well-controlled. Dispo:pending transfer to higher center for revision or explantation of Rt knee hardware Problems list: #Right knee abscess s/p I&D #Septic joint #Leukocytosis #History of right knee replacement #Chronic normocytic normochromic anemia #Hx of hypertension Case disclosed with Attending Dr. Cruz and My senior Dr. Silva PGY2. Abram Thorne PGY1 Senior Resident Attestation: I discussed with and supervised the sports broadcasting internship physician involved in the care of this patient. I personally saw and examined the patient and discussed the assessment and plan with the entire medicine team, including my attending. I agree with the discharge plan as documented above. Roger Silva MD PGY2 Internal Medicine Time Spent with Patient Time attestation: Total time spent providing and/or coordinating discharge services:>35 min Exam Vital Signs Temp Pulse Resp BP Pulse Ox O2 Del Method O2 Flow Rate 98.0 F 66 15 115/73 96 Room Air 2 10/10/24 08:00 10/10/24 08:00 10/10/24 08:00 10/10/24 08:00 10/10/24 08:00 10/10/24 04:00 10/08/24 16:00 Narrative Exam General: A/O x3, no acute distress, well-nourished, well-developed Eyes: PERRL, EOMI. Anicteric, vision grossly intact. Ears: No ear pain, no ear discharge, Hearing grossly intact. Nose: No nasal discharge. Mouth/Throat: Dry mucous membranes, no redness, no lesions. Neck: Neck supple, non-tender, no cervical lymphadenopathy. Lungs: Clear VARUN to auscultation and percussion, No accessory muscle use. Cardio: Normal S1/S2, regular rhythm, systolic murmur, no JVD Abdomen: Soft, non-tender, no palpable masses, peristalsis present, no guarding or rebound. Extremities: Symmetrical, no significant deformities, no peripheral edema , peripheral pulses presents. R LE covered by bandage slightly tender today. Skin: No rashes, no lesions, warm to touch. Neuro: No focal neurological deficits. motor and sensory intact Psych: Cooperative, appropriate mood and effect. Discharge Plan Plan Patient Disposition: Home w/HOME HEALTH Disposition Comment: PT and IV medication Care Plan Goals: Please follow-up with your PCP within 1 week of discharge. Please follow-up with orthopedic Dr. Braun within 1 to 2-week of discharge You have been started on: -Ceftriaxone 2 g daily until 11/14/2024 -Acetaminophen 650 Mg every 6 hourly as needed for pain We have held your clonidine 0.1 Mg tablets twice daily because of your borderline low blood pressure, please discuss regarding this with your PCP to resume it. -Continue with all other medicines as prescribed before -Recommended to return back to emergency department if your symptoms persist or does not improve. Prescriptions/Referrals Prescriptions/Med Rec: New acetaminophen 325 mg Tablet 650 mg PO Q6H PRN (Reason: pain and Fever >100.4) 30 Days Qty: 100 0RF ceftriaxone 2 gram recon soln 2 g IV QDAY 37 Days Qty: 37 0RF Rx Instructions: To be continued until 11/14/2024. Thank you. Continued methocarbamol 500 mg Tablet 500 mg PO BID Rx Instructions: For 30 days Filled 08/24/24 calcium carbonate [Calcium 600] 600 mg calcium (1,500 mg) Tablet 600 mg PO BID benazepril 20 mg Tablet 20 mg PO BID ibuprofen 800 mg Tablet 800 mg PO Q8H PRN (Reason: Pain) 14 Days Qty: 28 0RF Held clonidine HCl 0.1 mg Tablet 0.1 mg PO BID Hold Instructions: Resume on 10/13/24. Referrals: Stanley Huston MD [Primary Care Provider] - Randy Pascual MD [Physician] - Patient/Caregiver Discharge Instructions Discharge Activity: as per physical therapy Print Language: Belgian Stand Alone Forms: [employer] Award Info., Patient Portal Info Letter Quality Discharge Quality Measures VTE prophylaxis
[2024-10-10] MEDS: LOSARTAN POTASSIUM 25 MG TABLET 50 MG PO (10:08)
[2024-10-10 12:30] LABS: Basophils % (Auto) 1 % (0-2.5); Eosinophils # (Auto) 0.2 Thou/mm3 (0.0-0.5); Eosinophils % (Auto) 2 % (0-10); Hematocrit 26.8 % (36.0-46.0); Immature Granulocytes % (Auto) 1 % (0-0); Immature Granulocytes Auto 0.04 Thou/mm3 (0.00-0.00); Lymphocytes # (Auto) 1.6 Thou/mm3 (1.0-4.8); Lymphocytes % (Auto) 22 % (10-50); Mean Corpuscular HGB Conc 31.3 g/dl (31.0-37.0); Mean Corpuscular Hemoglobin 27.5 pg (25.0-35.0); Mean Corpuscular Volume 88 fL (80-100); Monocytes # (Auto) 0.7 Thou/mm3 (0.0-0.8); Monocytes % (Auto) 9 % (0-12); Neutrophils % (Auto) 67 % (37-80); Nucleated Red Blood Cell % 0 /100 WBC (0); Platelet Count 433 Thou/mm3 (140-440); RDW Standard Deviation 44.6 fL (36.4-46.3); Red Blood Count 3.05 Miln/mm3 (4.00-5.20); White Blood Count 7.6 Thou/mm3 (3.6-11.0)
[2024-10-10 12:31] LABS: Hemoglobin 8.4 g/dL (12.0-16.0)
[2024-10-10 12:42] LABS: Alanine Aminotransferase 34 U/L (10-49); Albumin, Serum 3.7 gm/dL (3.4-4.8); Albumin/Globulin Ratio 1.2 (1.2-2.2); Alkaline Phosphatase 119 U/L (46-116); Anion Gap 7 (7-16); Aspartate Amino Transferase 32 U/L (0-34); BUN/Creatinine Ratio 60 Ratio (12-20); Bilirubin,Total < 0.2 mg/dL (0.3-1.2); Blood Urea Nitrogen 30 mg/dL (9-23); Calcium 9.2 mg/dL (8.3-10.6); Calcium (Corrected) 9.4 mg/dL (8.5-10.1); Carbon Dioxide 25.8 mMol/L (20.0-31.0); Chloride 104 mMol/L (98-107); Creatinine (Component) 0.5 mg/dL (0.6-1.3); Estimated Creatinine Clearance 93.7 mL/min (>60); Glucose 103 mg/dL (74-106); Magnesium 1.8 mg/dL (1.6-2.6); Osmolality,Calculated 280 (275-295); Sodium 137 mMol/L (136-145); Total Protein 6.7 gm/dL (5.7-8.2); eGFR > 60 See Note
--- NOTE | 2024-10-10 15:15 | PC.SS ---
Follow up note: Patient pending transfer. Accepted at [facility] pending bed availability.
[2024-10-11] VITALS (8 sets, daily range): BP systolic 93–113; BP diastolic 51–81; PULSE 60–655; RESP 16–20; TEMP 36–36.7; O2SAT 93–97; BMI 31.6
[2024-10-11] MEDS: HYDROcodone/APAP 5/325 TABLET 1 TAB PO ×3 (05:11→18:43)
[2024-10-11] MEDS: HEPARIN SOD INJ 5000 UNIT/ML VIAL SC ×3 (05:12→21:43)
[2024-10-11] MEDS: LOSARTAN POTASSIUM 25 MG TABLET 50 MG PO (09:37)
[2024-10-11] MEDS: cefTRIAXone/D5w 2gm(DO NOT USE 2 GM/50 ML BAG IV (09:38)
--- NOTE | 2024-10-11 10:06 | PD.RESDS ---
Planned Discharge Date 10/11/24 DS: Providers Provider Date of admission: 09/30/24 17:04 Primary care physician: Stanley Huston MD Admitting Provider: Angel Goddard MD Attending Provider on Admission: William Cruz MD Consults: 09/30/24 16:32 Consult to Orthopedic Stat Comment: Consulting Provider: Randy Pascual 09/30/24 17:59 Referral Wound Care Routine Comment: 10/03/24 13:31 Consult to Infectious Diseases Routine Comment: Consulting Provider: Srinivasa Spencer 10/06/24 14:50 Referral Physical Therapy Routine Comment: after drain is out can we please do weight bearing Physician Instructions: 10/07/24 07:00 Referral Wound Care Urgent Comment: 10/07/24 10:06 Referral - Tension Machine Operator Stat Service Needed for Transfer: Orthopedics transplant Addl Comments:: The patient needs Rt knee hardware taken out at [place] level of care. Attending Provider on DC: William Cruz MD Discharging Provider: William Cruz MD DS: Diagnosis Problem List Completed Was Problem List Reviewed/Reconciled?: Yes Hospital Course Hospital Course Hospital course: 69-year-old female with past medical history of prior right knee replacement, hypertension, arthritis, ventral hernias, and chronic anemia is admitted to the hospital on 09/30/2024 for R knee abscess. Patient came into the ED with complaints of right knee pain as well as swelling and draining pus. Initially was afebrile and normotensive. Initial labs were relevant for leukocytosis (20.1) and anemia (8.2). 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 Orthopedic surgeon was consulted and performed an I & D on 10/02/2024 in which patient had pus coming out when incision was made and there was a small orifice towards the joint which also has some pus coming out. After I & D patient had a drainage in place before it was taken out by orthopedic surgeon. Patient received antibiotics guided by wound cultures that grew K. pneumoniae. Infectious disease specialist was also consulted and recommended 6 weeks of IV antibiotics with Rocephin 2 gm Iv qday for a total of 6 weeks[10/03/2024-11/14/2024]. Patient underwent successful PICC line insertion for continuation of antibiotics. Orthopedic surgeon requested patient to be transferred to a higher level of care center given that patient will require knee revision which could involve taking out the hardware. Patient and her spouse were explained the severity of the patient's current situation and the need for prompt medical intervention. They were understanding and all questions were answer. At the time of transfer patient was stable enough to be transferrred to a higher level of care center. 10/10/2024: Patient was stable seen at bedside today. No new complaints. No overnight events. Patient still pending transfer to higher [facility]. Pain is well-controlled. 10/11/2024: Patient was seen at bedside this morning. No overnight events. Patient is stable and transfer is pending availability of a bed at the accepting facility. No other complaints at this time. Dispo:pending transfer to [facility] for revision or explantation of Rt knee hardware Problems list: #Right knee abscess s/p I&D #Septic joint #Leukocytosis #History of right knee replacement #Chronic normocytic normochromic anemia #Hx of hypertension Case disclosed with Attending Dr. Nancy Thorne PGY1 Time Spent with Patient Time attestation: Total time spent providing and/or coordinating discharge services: >35min Exam Vital Signs Temp Pulse Resp BP Pulse Ox O2 Del Method O2 Flow Rate 97.3 F 63 18 98/60 94 L Room Air 2 10/12/24 04:00 10/12/24 04:00 10/12/24 04:00 10/12/24 04:00 10/12/24 04:00 10/12/24 04:00 10/08/24 16:00 Narrative Exam General: A/O x3, no acute distress, well-nourished, well-developed Eyes: PERRL, EOMI. Anicteric, vision grossly intact. Ears: No ear pain, no ear discharge, Hearing grossly intact. Nose: No nasal discharge. Mouth/Throat: Dry mucous membranes, no redness, no lesions. Neck: Neck supple, non-tender, no cervical lymphadenopathy. Lungs: Clear VARUN to auscultation and percussion, No accessory muscle use. Cardio: Normal S1/S2, regular rhythm, systolic murmur, no JVD Abdomen: Soft, non-tender, no palpable masses, peristalsis present, no guarding or rebound. Extremities: Symmetrical, no significant deformities, no peripheral edema , peripheral pulses presents. R LE covered by bandage slightly tender today. Skin: No rashes, no lesions, warm to touch. Neuro: No focal neurological deficits. motor and sensory intact Psych: Cooperative, appropriate mood and effect. Discharge Plan Plan Patient Disposition: Xfer Other Disposition Comment: PT and IV medication Care Plan Goals: Please follow-up with your PCP within 1 week of discharge. Please follow-up with orthopedic Dr. Braun within 1 to 2-week of discharge You have been started on: -Ceftriaxone 2 g daily until 11/14/2024 -Acetaminophen 650 Mg every 6 hourly as needed for pain We have held your clonidine 0.1 Mg tablets twice daily because of your borderline low blood pressure, please discuss regarding this with your PCP to resume it. -Continue with all other medicines as prescribed before -Recommended to return back to emergency department if your symptoms persist or does not improve. Prescriptions/Referrals Prescriptions/Med Rec: New acetaminophen 325 mg Tablet 650 mg PO Q6H PRN (Reason: pain and Fever >100.4) 30 Days Qty: 100 0RF ceftriaxone 2 gram recon soln 2 g IV QDAY 37 Days Qty: 37 0RF Rx Instructions: To be continued until 11/14/2024. Thank you. Continued methocarbamol 500 mg Tablet 500 mg PO BID Rx Instructions: For 30 days Filled 08/24/24 calcium carbonate [Calcium 600] 600 mg calcium (1,500 mg) Tablet 600 mg PO BID benazepril 20 mg Tablet 20 mg PO BID ibuprofen 800 mg Tablet 800 mg PO Q8H PRN (Reason: Pain) 14 Days Qty: 28 0RF Held clonidine HCl 0.1 mg Tablet 0.1 mg PO BID Hold Instructions: Resume on 10/13/24. Referrals: Stanley Huston MD [Primary Care Provider] - Randy Pascual MD [Physician] - Patient/Caregiver Discharge Instructions Discharge Activity: as per physical therapy Print Language: Occitan Stand Alone Forms: [employer] Award Info., Patient Portal Info Letter Discharge Order Discharge Orders: Discharge (Routine); Ordered 10/12/24 Ordered By: Magen Ballard Quality Discharge Quality Measures VTE prophylaxis
--- NOTE | 2024-10-11 10:38 | PC.CM ---
Addendum entered by Maria Luz Cr RN 10/11/24 19:01: I handed off to night charge nurse. supervisor hand silvering time set for 6am. Transfer packet at nurses station. Addendum entered by Maria Luz Cr RN 10/11/24 18:12: I received a call from [facility] and they stated patient has been financially cleared and they have a bed for patient. She will be going to [facility] at [address] [address], [address]. Number to call and give report is [phone]. Accepting Dr[address] is Dr Jocelyn Maldonado. They would like patient to arrive tomorrow mid morning. I will set up transports for tomorrow 6am. Addendum entered by Maria Luz Cr RN 10/11/24 17:33: I received a call from [facility] stating they were able to get financial clearance on patient. They wanted to speak to doctor so I i connected them to my doctor. Original Note: I called and spoke to [facility] and I spoke to the transfer nurse. She states they are waiting for a JESÚS from patient's insurance. I let her know the insurance already provided authorization. Transfer nurse states they did receive the authorization, but thy also need a letter of agreement (JESÚS). I contacted patient's insurance [employer] phone number . I let them know [facility] already received authorization on this patient from [place] but now they are requesting an JESÚS. They stated that would have to come from their corporate office, and they are not opened on the weekends. She states nothing will be reviewed until Sunday.
--- NOTE | 2024-10-11 10:52 | ESPR_ITS ---
<Statement entered by William Cruz MD - 10/14/24 12:21> I reviewed above note and agree with findings and plans. I have also personally examined the patient with medicine team and went over assessment and plan with medical team including hospital intern and resident physician. Documentation for date of: 10/11/24 Subjective Subjective Interval history: Patient was seen at bedside this morning. No overnight events. Patient is stable and transfer is pending availability of a bed at the accepting facility. No other complaints at this time. Exam Vital Signs Temp Pulse Resp BP Pulse Ox O2 Del Method O2 Flow Rate 96.8 F 655 H 18 102/65 97 Room Air 2 10/11/24 08:00 10/11/24 09:37 10/11/24 08:00 10/11/24 09:37 10/11/24 08:00 10/11/24 08:00 10/08/24 16:00 Narrative Exam General: A/O x3, no acute distress, well-nourished, well-developed Eyes: PERRL, EOMI. Anicteric, vision grossly intact. Ears: No ear pain, no ear discharge, Hearing grossly intact. Nose: No nasal discharge. Mouth/Throat: Dry mucous membranes, no redness, no lesions. Neck: Neck supple, non-tender, no cervical lymphadenopathy. Lungs: Clear VARUN to auscultation and percussion, No accessory muscle use. Cardio: Normal S1/S2, regular rhythm, systolic murmur, no JVD Abdomen: Soft, non-tender, no palpable masses, peristalsis present, no guarding or rebound. Extremities: Symmetrical, no significant deformities, no peripheral edema , peripheral pulses presents. Right lower extremity lateral incision was dry with mildly blood tinged dressing. Skin: No rashes, no lesions, warm to touch. Neuro: No focal neurological deficits. motor and sensory intact Psych: Cooperative, appropriate mood and effect. Objective Labs 10/10/24 12:07 10/10/24 12:07 Labs: Laboratory Results - last 24 hr 10/10/24 12:07 WBC 7.6 RBC 3.05 L Hgb 8.4 L Hct 26.8 L MCV 88 MCH 27.5 MCHC 31.3 RDW Std Deviation 44.6 Plt Count 433 Neut % (Auto) 67 Lymph % (Auto) 22 [place] % (Auto) 9 Eos % (Auto) 2 Baso % (Auto) 1 Neut # (Auto) 5.0 Lymph # (Auto) 1.6 [place] # (Auto) 0.7 Eos # (Auto) 0.2 Baso # (Auto) 0.0 Immature Gran # (Auto) 0.04 H Absolute Nucleated RBC 0.00 Immature Gran % 1 H Nucleated RBC % 0 Sodium 137 Potassium 4.0 Chloride 104 Carbon Dioxide 25.8 Anion Gap 7 BUN 30 H Creatinine 0.5 L Estim Creat Clear Calc 93.7 eGFR > 60 BUN/Creatinine Ratio 60 H Glucose 103 Calculated Osmolality 280 Calcium 9.2 Corrected Calcium 9.4 Magnesium 1.8 Total Bilirubin < 0.2 L AST 32 ALT 34 Alkaline Phosphatase 119 H Total Protein 6.7 Albumin 3.7 Globulin 3.0 Albumin/Globulin Ratio 1.2 Quality Measures Quality Measures VTE prophylaxis Advance care planning discussed with:: patient Assessment & Plan Assessment Current Active Medications: Generic Name Dose Route Start Last Admin Trade Name Freq PRN Reason Stop Dose Admin Acetaminophen 650 mg 09/30/24 17:04 10/06/24 19:44 Acetaminophen 325 Mg Tablet PO 10/30/24 17:03 650 mg Q6H PRN Administration pain and Fever >100.4 Protocol Hydrocodone Bitart/Acetaminophen 1 tab 10/07/24 07:22 10/11/24 05:11 Hydrocodone/Apap 5/325 Tablet PO 10/12/24 07:21 1 tab Q6HR PRN Administration PAIN 4-6 Heparin Sodium (Porcine) 5,000 unit 09/30/24 22:00 10/11/24 05:12 Heparin Sod Inj 5000 Unit/Ml Vial SC 10/14/24 21:59 5,000 unit Q8HR OPAL Administration Ceftriaxone Sodium/Dextrose 2 gm in 50 mls @ 100 mls/hr 10/11/24 09:00 10/11/24 09:38 Rocephin/D5w 2gm IV 10/18/24 08:59 100 mls/hr QDAY OPAL Administration Losartan Potassium 50 mg 10/02/24 09:00 10/11/24 09:37 Losartan Potassium 25 Mg Tablet PO 11/01/24 08:59 50 mg QDAY OPAL Administration Ondansetron HCl 4 mg 09/30/24 17:04 Ondansetron Inj 2 Mg/Ml Inj 2 Ml IV 10/30/24 17:03 Q6H PRN NAUSEA OR VOMITING Protocol Sennosides 1 tab 09/30/24 17:04 10/09/24 21:59 Senna Tablet PO 10/30/24 17:03 1 tab QDAY PRN Administration constipation Protocol Plan 69-year-old female with past medical history of prior right knee replacement, hypertension, arthritis, ventral hernias, and chronic anemia is admitted to the hospital on 09/30/2024 for R knee abscess. #Right knee abscess s/p I&D #Septic joint #Leukocytosis #History of right knee replacement ? Initially patient started having pain around 24 September and then she developed swelling as well as drainage of thick yellowish fluid. ?Patient had prior total knee replacement in 2017 which could indicate that there could be bacterial seeding in the metal artifacts. ? Prior episode of abscess in April, was prescribed oral antibiotics and resolved in 3 weeks. ? WBC 20.1 at admission ? Lactic acid 0.7 ? Knee x-ray showed loosening of prosthetic femoral condylar and tibial prosthetic components -Blood Cx negative -Wound culture positive for klebsiella pneumonia. - I & D on 10/02/2024, patient had pus coming out when incision was made and there was a small orifice towards the joint which also has some pus coming out. ? Discontinued vancomycin[09/30/2024?] Plan: -Continue Rocephin 2 gm Iv qday for a total of 6 weeks[10/03/2024-11/14/2024] ? Wound care ordered -PT referred -Pending transfer ? Orthopedic surgeon consulted, appreciate recommendations - ID consulted, appreciate recommendations #Chronic normocytic normochromic anemia ?Patient has baseline hemoglobin of around 10. ?Per patient she takes iron due to anemia ? Hemoglobin this admission is 8.2 -Hgb yesterday 8.4 ?no active signs of bleeding. Plan: ? Will transfuse hemoglobin less than 7 -PRBC ready in case of need of transfusion ? Will continue to monitor #Hx of hypertension ? Patient's blood pressure on admission is 129/77 ? Patient takes clonidine 0.1 mg at home Plan: ? Continue losartan to 50mg daily ? Will continue to monitor Disposition: Patient pending transfer, on IV abx. Diet: regular GI prophylaxis: not indicated DVT prophylaxis: heparin sc Code:Full Case disclosed with Attending Dr. Cruz and My senior Dr. Silva PGY2. Abram Thorne PGY1 Senior Resident Attestation: The patient is a 69-year-old female with significant past medical history of right knee replacement, hypertension, arthritis, ventral hernia, chronic anemia with previous right knee infection presented with chief complaint of right knee abscess on 09/30/2024. The patient reported doing well, denied any discharge from the right knee. She denied any fever or chills. Her vitals and labs were stable. This afternoon, the patient was accepted to [facility] for revision of right knee hardware, and possible explantation on 10/13/2024. I discussed with and supervised the hospital intern physician involved in the care of this patient. I personally saw and examined the patient and discussed the assessment and plan with the entire medicine team, including my attending. I agree with the assessment and plan as documented above. Roger Silva MD PGY2 Internal Medicine
--- NOTE | 2024-10-11 17:34 | PD.ADDDSCHGE ---
Addendum Discharge Addendum Date of report being addended: 10/10/24 Narrative: Addendum for discharge summary dated 10/10/2024, spoke to Dr. Craven, accepting orthopedic surgeon from [facility], went over the clinicals, vital signs, brief history of the case. Patient's vitals are stable, blood pressure 98/81, MAP greater than 80, afebrile, saturating well on room air. Patient does not appear to be in sepsis. Per Dr. Craven they are excepting the patient for transfer, and with tentative plan for surgery on Sunday for total knee hardware revision surgery. Transfer nurse will be made aware for arrangements to transfer to [facility].
[2024-10-12] VITALS: BP 96/54; PULSE 67; RESP 18; TEMP 36.5; O2SAT 95
[2024-10-12 04:00] VITALS: BP 98/60; PULSE 63; RESP 18; TEMP 36.3; O2SAT 94
[2024-10-12] MEDS: HYDROcodone/APAP 5/325 TABLET 1 TAB PO (05:36)
[2024-10-12] MEDS: HEPARIN SOD INJ 5000 UNIT/ML VIAL SC (05:39)
--- NOTE | 2024-10-12 06:56 | PC.NURSE ---
patient trasferred to [facility] via [facility], patient off unit at 0635 via gurney, patient's vital signs T97.8, BP122/64, HR 68, O2 95% on RA, RR 16 pain 3/10. Patient's at bedside and took all of patient's belongings to home. Report given to Nurse o at [facility], patient to [facility] Room 427. ETA given.
== END 2024-10-12 06:35 | disposition other institution (70) | DRG 549 ==
LOC: SERX 16:00 → SERHOLD 17:19 → S3SX 18:40
PROVIDERS: Internal Medicine Infectious Disease; Nurse Practitioner Family; Orthopaedic Surgery; Registered Nurse General Practice; Student in an Organized Health Care Education/Training Program; Admitting Provider Student in an Organized Health Care Education/Training Program; Emergency Provider Emergency Medicine; PCP Family Medicine; Visit Provider Internal Medicine
PROC: 3E1U38X Irrigation of Joints using Irrigating Substance, Percutaneous Approach, Diagnostic (ICD-10-PCS; principal; 2024-10-02 12:45)
DX: M00.9 Pyogenic arthritis, unspecified (principal); L02.415 Cutaneous abscess of right lower limb; L03.115 Cellulitis of right lower limb; I10 Essential (primary) hypertension; D64.9 Anemia, unspecified; M19.90 Unspecified osteoarthritis, unspecified site; Z96.651 Presence of right artificial knee joint; B96.1 Klebsiella pneumoniae [K. pneumoniae] as the cause of diseases classified elsewhere
CPT/HCPCS: 36415; 73562; 73701; 80053; 80202; 83605; 83735; 84100; 84145; 85014; 85018; 85025; 85610; 85730; 86331; 86480; 86635; 86850; 86900; 86901; 86923; 87040; 87070; 87075; 87077; 87081; 87186; 87205; 96365; 96366; 96367; 97162; 99285; A4217; A4649; C1751; C1894; J0696; J1580; J1642; J1643; J2270; J2405; J2543; J2704; J2765; J3010; J3370; J3490; J7040; J7050; Q9967; S0077; A9270; J0737

== ENCOUNTER 2024-10-23 23:35 | Inpatient (IN) | payer MEDICARE, MEDICAID, SELFPAY ==
[2024-10-23 23:59] VITALS: BMI 29.9
[2024-10-24] VITALS (10 sets, daily range): BP systolic 100–126; BP diastolic 62–69; PULSE 60–88; RESP 16–98; TEMP 36.2–37.3; O2SAT 95–98; BMI 12.0
--- NOTE | 2024-10-24 03:20 | ESHP_ITS ---
<Statement entered by Karl Kelly MD - 10/24/24 13:49> I have discussed and was present for the essential components of the history, physical examination, diagnosis, and treatment plan with the resident. I agree with the patient's care as documented by the resident and amended herein by me. Karl Kelly MD FACP. Documentation for date of: 10/24/24 HPI History of Present Illness History of present illness: Patient is a 69-year-old Mauritian-speaking female with past medical history of prior right knee replacement, hypertension, arthritis, ventral hernias, and chronic anemia who was transferred back from [facility] on 10/23/2024 s/p revision of right total knee arthroplasty, irrigation and debridement explant and static antibiotic spacer. 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 Surgery was done at [facility] by Dr. Joaquín Maldonado. Prior to the surgery patient was found to have a left lower extremity DVT on US doppler, due to risk of bleeding with the required procedure, decision was made to have IVC filter placed pre-op on 10/15. Postoperatively patient was eventually transitioned to Eliquis 5 mg BID to be taken for next 3 months. Patient is to have IVC filter removed within next 2 weeks via IR. Patient also has wound VAC to remain in place for 7 days. Wound vac can be removed after this on 10/30 and dry dressing can be applied until patient can be seen for suture removal and/or wound reassessment. Physical therapy at [facility] also assessed patient and recommended acute rehab placement. Patient at this time reports continued right knee pain at the surgery site, worsened with movements. Otherwise denying any fevers, chills, nausea, and vomiting. Patient is reporting continued abdominal discomfort at site of ventral hernia, states that it bulges out whenever she sits or stands. However it is reducible, patient has been passing gas and bowel movements at this time. Telephone histology manager in Mauritian utilized. Review of Systems Review of systems otherwise negative except what is mentioned above. Past Medical History Past Medical History Comments PMH COMMENT: Past Medical History: Right knee replacement, hypertension, arthritis, ventral hernias, and chronic anemia Family History: Positive for cardiac disorders Surgical History: Right knee replacement, IVC placement 10/15, revision of right total knee arthroplasty, irrigation and debridement explant and static antibiotic spacer 10/18 Social History: Denies history of smoking, denies current alcohol use, denies recreational drug use Current Medications: Ceftriaxone 2 g qday, benazepril 20 mg BID, clonidine 0.1 BID, calcium carbonate 600 mg BID, acetaminophen 650 mg q6h prn (Source: Discharge [facility]) Allergies: No known drug allergies Exam Vital Signs Temp Pulse Resp BP Pulse Ox O2 Del Method 97.9 F 68 17 124/69 95 Room Air 10/24/24 00:00 10/24/24 00:00 10/24/24 00:00 10/24/24 00:00 10/24/24 00:00 10/24/24 00:00 Narrative Exam Physical Exam General: Awake and in no acute distress. Conversational and non-toxic appearing. Mauritian-speaking. HEENT: Normocephalic, atraumatic, mucous membranes moist. Heart: Regular rate and rhythm, no murmurs. Lungs: Clear to auscultation with no wheezing or crackles. Abdomen: Central midline scar present, ventral hernia reducible but mildy tender to palpation, positive bowel sounds. ?No guarding or rebound tenderness. Neurologic: Alert and oriented x3, no gross neurological deficit, and patient able to move all 4 extremities. Extremities: Right knee with wound vac in place and immobilizer. Pain upon movement of right lower extremity. Able to move toes bilaterally. Skin: No rash or ecchymoses. Results: Labs 10/24/24 04:30 10/24/24 04:30 Quality Measures Quality Measures VTE therapy Advance care planning discussed with:: patient Medications Home Medications and Allergies Home Medications ?Medication ?Instructions ?Recorded ?Confirmed ?Type calcium carbonate (Calcium 600) 600 mg PO BID 04/18/18 10/24/24 History methocarbamol 500 mg tablet 500 mg PO BID 04/18/18 History clonidine HCl 0.1 mg tablet 0.1 mg PO BID 07/25/18 History benazepril 20 mg tablet 20 mg PO BID 01/16/23 History Allergies Allergy/AdvReac Type Severity Reaction Status Date / Time No Known Allergies Allergy Verified 09/30/24 11:49 Assessment & Plan Plan 69-year-old Mauritian-speaking female with past medical history of prior right knee replacement, hypertension, arthritis, ventral hernias, and chronic anemia who was transferred back from [facility] on 10/23/2024 s/p revision of right total knee arthroplasty, irrigation and debridement explant and static antibiotic spacer, now pending PT evaluation and rehab recommendations. #Septic joint s/p revision of right total knee arthroplasty, irrigation and debridement explant and static antibiotic spacer Patient transferred out to [facility] for surgery on 10/12/2024, transferred back to [facility] 10/23/2024. 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 IVC filter placed 10/15/2024 prior to orthopedic surgery -Continue Eliquis 5 mg BID to be continued for 3 months -Outpatient referral to IR for IVC filter removal 2 weeks from placement according to [facility] discharge #Ventral hernia History of repair 2 years ago per patient. Complicated by recurrence. Per [facility] hospital course patient became symptomatic and had suspicion for SBO, resolved with bowel rest prior to proceeding with orthopedic surgery. -Outpatient referral to general surgery for ventral hernia repair -Monitor for any recurrence of SBO symptoms #History of hypertension -Resume home medications as appropriate DVT prophylaxis: Heparin 5,000 U subQ GI prophylaxis: Pantoprazole 40 mg IV daily Diet: Cardiac diet Sharpe: None Lines: Peripheral IV Antibiotics: ceftriaxone 2g qday CODE STATUS: FULL Reason for hospitalization: PT evaluation and acute rehab placement s/p revision right knee arthroplasty Patient plan of care was discussed with the attending physician, Dr. Kelly. Kimberley Salmon, PGY-2
[2024-10-24 05:30] LABS: Basophils # (Auto) 0.1 Thou/mm3 (0.0-0.2); Basophils % (Auto) 1 % (0-2.5); Eosinophils # (Auto) 0.3 Thou/mm3 (0.0-0.5); Eosinophils % (Auto) 4 % (0-10); Immature Granulocytes % (Auto) 1 % (0-0); Immature Granulocytes Auto 0.08 Thou/mm3 (0.00-0.00); Lymphocytes # (Auto) 1.9 Thou/mm3 (1.0-4.8); Lymphocytes % (Auto) 23 % (10-50); Mean Corpuscular HGB Conc 31.3 g/dl (31.0-37.0); Mean Corpuscular Volume 90 fL (80-100); Monocytes # (Auto) 0.6 Thou/mm3 (0.0-0.8); Monocytes % (Auto) 8 % (0-12); Neutrophils # (Auto) 5.3 Thou/mm3 (1.8-7.7); Neutrophils % (Auto) 64 % (37-80); Nucleated Red Blood Cell % 0 /100 WBC (0); Platelet Count 376 Thou/mm3 (140-440); RDW Standard Deviation 50.3 fL (36.4-46.3); Red Blood Count 2.68 Miln/mm3 (4.00-5.20); White Blood Count 8.3 Thou/mm3 (3.6-11.0)
[2024-10-24 05:38] LABS: Hemoglobin 7.5 g/dL (12.0-16.0)
[2024-10-24 06:11] LABS: Alanine Aminotransferase < 7 U/L (10-49); Albumin/Globulin Ratio 1.2 (1.2-2.2); Alkaline Phosphatase 122 U/L (46-116); Anion Gap 8 (7-16); Aspartate Amino Transferase 14 U/L (0-34); BUN/Creatinine Ratio 45 Ratio (12-20); Bilirubin,Total 0.2 mg/dL (0.3-1.2); Blood Urea Nitrogen 18 mg/dL (9-23); Calcium (Corrected) 9.8 mg/dL (8.5-10.1); Carbon Dioxide 29.4 mMol/L (20.0-31.0); Chloride 102 mMol/L (98-107); Creatinine (Component) 0.4 mg/dL (0.6-1.3); Globulin 2.5 gm/dL (2.3-3.5); Glucose 94 mg/dL (74-106); Magnesium 1.6 mg/dL (1.6-2.6); Osmolality,Calculated 279 (275-295); Phosphorous 3.5 mg/dL (2.4-5.1); Sodium 139 mMol/L (136-145); Total Protein 5.5 gm/dL (5.7-8.2); eGFR > 60 See Note
[2024-10-24] MEDS: HYDROcodone/APAP 5/325 TABLET 1 TAB PO ×3 (06:47→22:49)
[2024-10-24] MEDS: APIXABAN 2.5 MG TABLET 5 MG PO ×2 (09:08→21:26)
[2024-10-24] MEDS: cefTRIAXone/D5w 2gm 2 GM/50 ML BAG IV (09:41)
--- NOTE | 2024-10-24 13:47 | ESPR_ITS ---
<Statement entered by William Cruz MD - 10/28/24 15:41> I reviewed above note and agree with findings and plans. I have also personally examined the patient with medicine team and went over assessment and plan with medical team including physician/internist and resident physician. Documentation for date of: 10/24/24 Subjective Subjective Interval history: Patient seen at bedside. She is a 69-year-old female with a past medical history of prior right knee replacement, hypertension, arthritis, ventral hernias and chronic anemia who initially presented to the ED on 09/30/2024 with complaints of right knee pain and swelling as well as pus drainage. The patient had irrigation and debridement on 10/03/[address] Pascual. Blood culture returned positive with Klebsiella pneumonia and infectious disease was consulted, a PICC line was inserted for continuation of antibiotics and the patient was transferred to higher level of care center for knee revision on 10/07/2024. At [facility], she was found to have left lower extremity DVT and had an IVC filter placed on 10/15/2024 as well as revision of right total knee arthroplasty. Patient was transitioned to Eliquis 5 mg twice daily to be continued for 3 months and IVC filter to be removed by IR within the next 2 weeks. She also has a wound VAC to be removed on 10/30/2024. At bedside, she complains of mild pain but otherwise reports significant improvement since her first presentation to the hospital. Patient was counseled extensively on the need to keep the antibiotics as well as the Eliquis to prevent further worsening complications. Exam Vital Signs Temp Pulse Resp BP Pulse Ox O2 Del Method 98.4 F 69 16 122/69 95 Room Air 10/24/24 12:00 10/24/24 12:10/24/24 12:10/24/24 12:10/24/24 12:10/24/24 12:00 Narrative Exam General: Awake and in no acute distress. Conversational and non-toxic appearing. Gambian-speaking. HEENT: Normocephalic, atraumatic, mucous membranes moist. Heart: Regular rate and rhythm, no murmurs. Lungs: Clear to auscultation with no wheezing or crackles. Abdomen: Central midline scar present, ventral hernia reducible but mildy tender to palpation, positive bowel sounds. ?No guarding or rebound tenderness. Neurologic: Alert and oriented x3, no gross neurological deficit, and patient able to move all 4 extremities. Extremities: Right knee with wound vac in place and immobilizer. Pain upon movement of right lower extremity. Able to move toes bilaterally. Skin: No rash or ecchymoses. Objective Labs 10/26/24 04:45 10/26/24 04:45 Labs: Laboratory Results - last 24 hr 10/24/24 04:30 WBC 8.3 RBC 2.68 L Hgb 7.5 L Hct 24.0 L MCV 90 MCH 28.0 MCHC 31.3 RDW Std Deviation 50.3 H Plt Count 376 D Neut % (Auto) 64 Lymph % (Auto) 23 [place] % (Auto) 8 Eos % (Auto) 4 Baso % (Auto) 1 Neut # (Auto) 5.3 Lymph # (Auto) 1.9 [place] # (Auto) 0.6 Eos # (Auto) 0.3 Baso # (Auto) 0.1 Immature Gran # (Auto) 0.08 H Absolute Nucleated RBC 0.00 Immature Gran % 1 H Nucleated RBC % 0 Sodium 139 Potassium 4.0 Chloride 102 Carbon Dioxide 29.4 Anion Gap 8 BUN 18 Creatinine 0.4 L Estim Creat Clear Calc 109.0 eGFR > 60 BUN/Creatinine Ratio 45 H Glucose 94 Calculated Osmolality 279 Calcium 9.0 Corrected Calcium 9.8 Phosphorus 3.5 Magnesium 1.6 Total Bilirubin 0.2 L AST 14 ALT < 7 L Alkaline Phosphatase 122 H Total Protein 5.5 L Albumin 3.0 L Globulin 2.5 Albumin/Globulin Ratio 1.2 Quality Measures Quality Measures VTE therapy Advance care planning discussed with:: patient Assessment & Plan Assessment Current Active Medications: Generic Name Dose Route Start Last Admin Trade Name Freq PRN Reason Stop Dose Admin Acetaminophen 650 mg 10/24/24 03:50 Acetaminophen 325 Mg Tablet PO 11/23/24 03:49 Q6H PRN Fever >100.4 or Pain 1-10 Hydrocodone Bitart/Acetaminophen 1 tab 10/24/24 04:12 10/24/24 06:47 Hydrocodone/Apap 5/325 Tablet PO 10/29/24 03:49 1 tab Q6H PRN Administration PAIN SCALE 4-10(Mod-Sev Apixaban 5 mg 10/24/24 09:00 10/24/24 09:08 Apixaban 2.5 Mg Tablet PO 11/23/24 08:59 5 mg BID OPAL Administration Ceftriaxone Sodium/Dextrose 2 gm in 50 mls @ 100 mls/hr 10/24/24 09:15 10/24/24 09:41 Rocephin/D5w 2gm IV 10/31/24 09:14 100 mls/hr QDAY OPAL Administration Ondansetron HCl 4 mg 10/24/24 03:50 Ondansetron Inj 2 Mg/Ml Inj 2 Ml IV 11/23/24 03:49 Q6H PRN NAUSEA OR VOMITING Protocol Plan Summary: 69-year-old Gambian-speaking female with past medical history of prior right knee replacement, hypertension, arthritis, ventral hernias, and chronic anemia who was transferred back from [facility] on 10/23/2024 s/p revision of right total knee arthroplasty, irrigation and debridement explant and static antibiotic spacer, now pending PT evaluation and rehab recommendations. #Septic joint s/p revision of right total knee arthroplasty, irrigation and debridement explant and static antibiotic spacer Patient transferred out to [facility] for surgery on 10/12/2024, transferred back to [facility] 10/23/2024. 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 IVC filter placed 10/15/2024 prior to orthopedic surgery -Continue Eliquis 5 mg BID to be continued for 3 months -Outpatient referral to IR for IVC filter removal 2 weeks from placement according to [facility] discharge #Ventral hernia History of repair 2 years ago per patient. Complicated by recurrence. Per [facility] hospital course patient became symptomatic and had suspicion for SBO, resolved with bowel rest prior to proceeding with orthopedic surgery. -Outpatient referral to general surgery for ventral hernia repair -Monitor for any recurrence of SBO symptoms #History of hypertension -Resume home medications as appropriate DVT prophylaxis: Eliquis GI prophylaxis: Pantoprazole 40 mg IV daily Diet: Cardiac diet Sharpe: None Lines: Peripheral IV Antibiotics: ceftriaxone 2g qday CODE STATUS: FULL Case was discussed with Dr Silva PGY-2 and attending physician, Dr Nancy Morales MD PGY-1 Senior Resident Attestation: The patient is a 69-year-old female with significant past medical history of right knee replacement, hypertension, arthritis, ventral hernias and chronic anemia who was transferred back from [facility] on 10/23/2024 s/p explantation of right total knee arthroplasty, irrigation and debridement with static antibiotic spacer is currently pending PT eval and possible placement to rehab facility. She will require outpatient referral to IR for IVC filter removal 2 weeks from placement that would be 10/29/2024. The patient will also need weekly renal panel, ESR and CBC as she has PICC line, and removal of PICC line after completion of IV ceftriaxone. I discussed with and supervised the physician/internist physician involved in the care of this patient. I personally saw and examined the patient and discussed the assessment and plan with the entire medicine team, including my attending. I agree with the assessment and plan as documented above. Roger Silva MD PGY2 Internal Medicine
--- NOTE | 2024-10-24 14:30 | PC.SS ---
Follow up note: SS received update that patient will need short term SNF. SS will submit PASRR and referral on [facility]
--- NOTE | 2024-10-24 16:06 | PC.SS ---
Follow up note: SS met with patient at bedside with aerial photograph interpreter present. Patient is not wanting to d/c to SNF. She states she was told she would return to [facility] in a week and that she wasn't supposed to bear weight on that leg. SS sent out inquiry through [employer] as a backup plan. SS staff will need to follow up with family on d/c plans.
[2024-10-25] VITALS (7 sets, daily range): BP systolic 96–107; BP diastolic 52–61; PULSE 57–76; RESP 18–97; TEMP 36.2–36.6; O2SAT 94–98; BMI 12.0
[2024-10-25 06:03] LABS: Basophils # (Auto) 0.1 Thou/mm3 (0.0-0.2); Basophils % (Auto) 1 % (0-2.5); Eosinophils # (Auto) 0.4 Thou/mm3 (0.0-0.5); Eosinophils % (Auto) 5 % (0-10); Hematocrit 21.8 % (36.0-46.0); Immature Granulocytes % (Auto) 1 % (0-0); Immature Granulocytes Auto 0.06 Thou/mm3 (0.00-0.00); Lymphocytes # (Auto) 1.6 Thou/mm3 (1.0-4.8); Lymphocytes % (Auto) 24 % (10-50); Mean Corpuscular HGB Conc 31.7 g/dl (31.0-37.0); Mean Corpuscular Volume 89 fL (80-100); Monocytes # (Auto) 0.5 Thou/mm3 (0.0-0.8); Monocytes % (Auto) 8 % (0-12); Neutrophils # (Auto) 4.2 Thou/mm3 (1.8-7.7); Neutrophils % (Auto) 62 % (37-80); Nucleated Red Blood Cell % 0 /100 WBC (0); Platelet Count 371 Thou/mm3 (140-440); RDW Standard Deviation 50.1 fL (36.4-46.3); Red Blood Count 2.46 Miln/mm3 (4.00-5.20); White Blood Count 6.8 Thou/mm3 (3.6-11.0)
[2024-10-25 06:05] LABS: Hemoglobin 6.9 g/dL (12.0-16.0)
[2024-10-25] MEDS: HYDROcodone/APAP 5/325 TABLET 1 TAB PO ×3 (06:26→18:41)
[2024-10-25 06:29] LABS: INR 1.1 (0.9-1.3); Partial Thromboplastin Time 29.1 Seconds (22.0-36.0); Prothrombin Time 11.9 Seconds (9.0-12.2)
[2024-10-25 06:45] LABS: Alanine Aminotransferase < 7 U/L (10-49); Albumin/Globulin Ratio 1.2 (1.2-2.2); Alkaline Phosphatase 109 U/L (46-116); Anion Gap 6 (7-16); Aspartate Amino Transferase 15 U/L (0-34); BUN/Creatinine Ratio 33 Ratio (12-20); Bilirubin,Total 0.3 mg/dL (0.3-1.2); Blood Urea Nitrogen 13 mg/dL (9-23); Calcium 9.1 mg/dL (8.3-10.6); Calcium (Corrected) 9.9 mg/dL (8.5-10.1); Carbon Dioxide 31.1 mMol/L (20.0-31.0); Chloride 102 mMol/L (98-107); Creatinine (Component) 0.4 mg/dL (0.6-1.3); Globulin 2.6 gm/dL (2.3-3.5); Glucose 82 mg/dL (74-106); Osmolality,Calculated 276 (275-295); Potassium 4.2 mMol/L (3.4-5.1); Sodium 139 mMol/L (136-145); Total Protein 5.6 gm/dL (5.7-8.2); eGFR > 60 See Note
[2024-10-25 07:43] LABS: Hematocrit 25.4 % (36.0-46.0)
[2024-10-25 07:56] LABS: Hemoglobin 7.9 g/dL (12.0-16.0)
[2024-10-25] MEDS: cefTRIAXone/D5w 2gm 2 GM/50 ML BAG IV (08:45)
[2024-10-25] MEDS: APIXABAN 2.5 MG TABLET 5 MG PO ×2 (08:46→20:26)
--- NOTE | 2024-10-25 15:22 | ESPR_ITS ---
Documentation for date of: 10/25/24 Subjective Subjective Interval history: Patient seen at bedside. No acute overnight events. Patient complains of some pain, but otherwise is comfortably lying in bed. Pending wound VAC removal tomorrow as recommended by [facility]. PT at [facility] also recommended SNF placement, however patient and relative are currently declining SNF. manager social services will again talk to the patient and if they still refused, home health will be made available as patient still requires antibiotics until 11/14/2024-IV Rocephin 2 g daily. Exam Vital Signs Temp Pulse Resp BP Pulse Ox O2 Del Method 97.3 F 76 19 103/60 96 Room Air 10/25/24 12:00 10/25/24 12:00 10/25/24 12:00 10/25/24 12:00 10/25/24 12:10/25/24 12:00 Narrative Exam General: Awake and in no acute distress. Conversational and non-toxic appearing. Urdu-speaking. HEENT: Normocephalic, atraumatic, mucous membranes moist. Heart: Regular rate and rhythm, no murmurs. Lungs: Clear to auscultation with no wheezing or crackles. Abdomen: Central midline scar present, ventral hernia reducible but mildy tender to palpation, positive bowel sounds. ?No guarding or rebound tenderness. Neurologic: Alert and oriented x3, no gross neurological deficit, and patient able to move all 4 extremities. Extremities: Right knee with wound vac in place and immobilizer. Warm to touch, Pain upon movement of right lower extremity. Able to move toes bilaterally. Skin: No rash or ecchymoses. Objective Labs 10/26/24 04:45 10/26/24 04:45 Labs: Laboratory Results - last 24 hr 10/25/24 10/25/24 05:30 06:50 WBC 6.8 RBC 2.46 L Hgb 6.9 L* 7.9 L Hct 21.8 L* 25.4 L MCV 89 MCH 28.0 MCHC 31.7 RDW Std Deviation 50.1 H Plt Count 371 Neut % (Auto) 62 Lymph % (Auto) 24 [place] % (Auto) 8 Eos % (Auto) 5 Baso % (Auto) 1 Neut # (Auto) 4.2 Lymph # (Auto) 1.6 [place] # (Auto) 0.5 Eos # (Auto) 0.4 Baso # (Auto) 0.1 Immature Gran # (Auto) 0.06 H Absolute Nucleated RBC 0.00 Immature Gran % 1 H Nucleated RBC % 0 PT 11.9 INR 1.1 APTT 29.1 Sodium 139 Potassium 4.2 Chloride 102 Carbon Dioxide 31.1 H Anion Gap 6 L BUN 13 Creatinine 0.4 L Estim Creat Clear Calc 109.0 eGFR > 60 BUN/Creatinine Ratio 33 H Glucose 82 Calculated Osmolality 276 Calcium 9.1 Corrected Calcium 9.9 Total Bilirubin 0.3 AST 15 ALT < 7 L Alkaline Phosphatase 109 Total Protein 5.6 L Albumin 3.0 L Globulin 2.6 Albumin/Globulin Ratio 1.2 Quality Measures Quality Measures VTE therapy Advance care planning discussed with:: patient and other Assessment & Plan Assessment Current Active Medications: Generic Name Dose Route Start Last Admin Trade Name Freq PRN Reason Stop Dose Admin Acetaminophen 650 mg 10/24/24 03:50 Acetaminophen 325 Mg Tablet PO 11/23/24 03:49 Q6H PRN Fever >100.4 or Pain 1-10 Hydrocodone Bitart/Acetaminophen 1 tab 10/24/24 04:12 10/25/24 12:16 Hydrocodone/Apap 5/325 Tablet PO 10/29/24 03:49 1 tab Q6H PRN Administration PAIN SCALE 4-10(Mod-Sev Apixaban 5 mg 10/24/24 09:00 10/25/24 08:46 Apixaban 2.5 Mg Tablet PO 11/23/24 08:59 5 mg BID OPAL Administration Ceftriaxone Sodium/Dextrose 2 gm in 50 mls @ 100 mls/hr 10/24/24 09:15 10/25/24 08:45 Rocephin/D5w 2gm IV 10/31/24 09:14 100 mls/hr QDAY OPAL Administration Ondansetron HCl 4 mg 10/24/24 03:50 Ondansetron Inj 2 Mg/Ml Inj 2 Ml IV 11/23/24 03:49 Q6H PRN NAUSEA OR VOMITING Protocol Plan Summary: 69-year-old Urdu-speaking female with past medical history of prior right knee replacement, hypertension, arthritis, ventral hernias, and chronic anemia who was transferred back from [facility] on 10/23/2024 s/p revision of right total knee arthroplasty, irrigation and debridement explant and static antibiotic spacer, now pending PT evaluation and rehab recommendations. #Septic joint s/p revision of right total knee arthroplasty, irrigation and debridement explant and static antibiotic spacer Patient transferred out to [facility] for surgery on 10/12/2024, transferred back to [facility] 10/23/2024. -Daily CBC, CMP -Continue ceftriaxone 2g daily with PICC line according to ID recommendations to 11/14/2024 -Wound vac to be removed tomorrow 10/25/2024 -Physical therapy evaluation- SNF rexommended. Patient and relatives currently declining, will require home health if insistent. 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 IVC filter placed 10/15/2024 prior to orthopedic surgery -Continue Eliquis 5 mg BID to be continued for 3 months -Outpatient referral to IR for IVC filter removal 2 weeks from placement according to [facility] discharge #Ventral hernia History of repair 2 years ago per patient. Complicated by recurrence. Per [facility] hospital course patient became symptomatic and had suspicion for SBO, resolved with bowel rest prior to proceeding with orthopedic surgery. -Outpatient referral to general surgery for ventral hernia repair -Monitor for any recurrence of SBO symptoms #History of hypertension -Resume home medications as appropriate DVT prophylaxis: Eliquis GI prophylaxis: Pantoprazole 40 mg IV daily Diet: Cardiac diet Sharpe: None Lines: Peripheral IV Antibiotics: ceftriaxone 2g qday CODE STATUS: FULL Case was discussed with attending physician, Dr Nancy Morales MD PGY-1
[2024-10-26] VITALS: BP 98/52; PULSE 77; RESP 18; TEMP 36.3; O2SAT 95
[2024-10-26] MEDS: HYDROcodone/APAP 5/325 TABLET 1 TAB PO ×4 (00:32→21:11)
[2024-10-26 04:00] VITALS: BP 102/56; PULSE 58; RESP 18; TEMP 36.2; O2SAT 98
[2024-10-26 05:45] LABS: Basophils # (Auto) 0.1 Thou/mm3 (0.0-0.2); Basophils % (Auto) 1 % (0-2.5); Eosinophils # (Auto) 0.3 Thou/mm3 (0.0-0.5); Eosinophils % (Auto) 5 % (0-10); Hematocrit 25.3 % (36.0-46.0); Hemoglobin 7.9 g/dL (12.0-16.0); Immature Granulocytes % (Auto) 1 % (0-0); Immature Granulocytes Auto 0.05 Thou/mm3 (0.00-0.00); Lymphocytes # (Auto) 1.2 Thou/mm3 (1.0-4.8); Lymphocytes % (Auto) 20 % (10-50); Mean Corpuscular HGB Conc 31.2 g/dl (31.0-37.0); Mean Corpuscular Volume 90 fL (80-100); Monocytes # (Auto) 0.4 Thou/mm3 (0.0-0.8); Monocytes % (Auto) 7 % (0-12); Neutrophils # (Auto) 4.1 Thou/mm3 (1.8-7.7); Neutrophils % (Auto) 67 % (37-80); Nucleated Red Blood Cell % 0 /100 WBC (0); Platelet Count 358 Thou/mm3 (140-440); RDW Standard Deviation 51.2 fL (36.4-46.3); Red Blood Count 2.82 Miln/mm3 (4.00-5.20); White Blood Count 6.1 Thou/mm3 (3.6-11.0)
[2024-10-26 06:34] LABS: Alanine Aminotransferase < 7 U/L (10-49); Albumin/Globulin Ratio 1.2 (1.2-2.2); Alkaline Phosphatase 109 U/L (46-116); Anion Gap 7 (7-16); Aspartate Amino Transferase 16 U/L (0-34); BUN/Creatinine Ratio 45 Ratio (12-20); Bilirubin,Total 0.3 mg/dL (0.3-1.2); Blood Urea Nitrogen 18 mg/dL (9-23); Calcium 8.8 mg/dL (8.3-10.6); Calcium (Corrected) 9.6 mg/dL (8.5-10.1); Carbon Dioxide 29.1 mMol/L (20.0-31.0); Chloride 102 mMol/L (98-107); Creatinine (Component) 0.4 mg/dL (0.6-1.3); Globulin 2.6 gm/dL (2.3-3.5); Glucose 82 mg/dL (74-106); Osmolality,Calculated 276 (275-295); Potassium 4.2 mMol/L (3.4-5.1); Sodium 138 mMol/L (136-145); Total Protein 5.6 gm/dL (5.7-8.2); eGFR > 60 See Note
[2024-10-26 08:00] VITALS: BP 116/66; PULSE 62; RESP 18; TEMP 36.3; O2SAT 95
[2024-10-26] MEDS: cefTRIAXone/D5w 2gm 2 GM/50 ML BAG IV (09:20)
[2024-10-26] MEDS: APIXABAN 2.5 MG TABLET 5 MG PO ×2 (09:20→21:11)
[2024-10-26 12:00] VITALS: BP 99/67; PULSE 68; RESP 17; TEMP 36.3; O2SAT 95
--- NOTE | 2024-10-26 13:34 | ESPR_ITS ---
Documentation for date of: 10/26/24 Subjective Subjective Interval history: Patient seen at bedside. No acute overnight events. She has no complaints today and only has questions about televideo visit with [facility]. Pending wound VAC removal tomorrow once wound care is available. Today, patient is unsure about whether or not she wants to the SNF or home health, is expecting her daughter back from [place] tomorrow to make that decision. She still has a PICC line in and is on IV Rocephin 2 g daily until 11/14/2024. Will need IVC filter removed as an outpatient 2 weeks from placement- 01/23/2025 as well as general surgery referral for ventral hernia Exam Vital Signs Temp Pulse Resp BP Pulse Ox O2 Del Method 97.4 F 68 17 99/67 95 Room Air 10/26/24 12:00 10/26/24 12:00 10/26/24 12:00 10/26/24 12:00 10/26/24 12:00 10/26/24 12:00 Objective Labs 10/26/24 04:45 10/26/24 04:45 Labs: Laboratory Results - last 24 hr 10/26/24 04:45 WBC 6.1 RBC 2.82 L Hgb 7.9 L Hct 25.3 L MCV 90 MCH 28.0 MCHC 31.2 RDW Std Deviation 51.2 H Plt Count 358 Neut % (Auto) 67 Lymph % (Auto) 20 [place] % (Auto) 7 Eos % (Auto) 5 Baso % (Auto) 1 Neut # (Auto) 4.1 Lymph # (Auto) 1.2 [place] # (Auto) 0.4 Eos # (Auto) 0.3 Baso # (Auto) 0.1 Immature Gran # (Auto) 0.05 H Absolute Nucleated RBC 0.00 Immature Gran % 1 H Nucleated RBC % 0 Sodium 138 Potassium 4.2 Chloride 102 Carbon Dioxide 29.1 Anion Gap 7 BUN 18 Creatinine 0.4 L Estim Creat Clear Calc 109.0 eGFR > 60 BUN/Creatinine Ratio 45 H Glucose 82 Calculated Osmolality 276 Calcium 8.8 Corrected Calcium 9.6 Total Bilirubin 0.3 AST 16 ALT < 7 L Alkaline Phosphatase 109 Total Protein 5.6 L Albumin 3.0 L Globulin 2.6 Albumin/Globulin Ratio 1.2 Quality Measures Quality Measures VTE therapy Advance care planning discussed with:: patient and other Assessment & Plan Assessment Current Active Medications: Generic Name Dose Route Start Last Admin Trade Name Freq PRN Reason Stop Dose Admin Acetaminophen 650 mg 10/24/24 03:50 Acetaminophen 325 Mg Tablet PO 11/23/24 03:49 Q6H PRN Fever >100.4 or Pain 1-10 Hydrocodone Bitart/Acetaminophen 1 tab 10/24/24 04:12 10/26/24 07:24 Hydrocodone/Apap 5/325 Tablet PO 10/29/24 03:49 1 tab Q6H PRN Administration PAIN SCALE 4-10(Mod-Sev Apixaban 5 mg 10/24/24 09:00 10/26/24 09:20 Apixaban 2.5 Mg Tablet PO 11/23/24 08:59 5 mg BID OPAL Administration Ceftriaxone Sodium/Dextrose 2 gm in 50 mls @ 100 mls/hr 10/24/24 09:15 10/26/24 09:20 Rocephin/D5w 2gm IV 10/31/24 09:14 100 mls/hr QDAY OPAL Administration Ondansetron HCl 4 mg 10/24/24 03:50 Ondansetron Inj 2 Mg/Ml Inj 2 Ml IV 11/23/24 03:49 Q6H PRN NAUSEA OR VOMITING Protocol Plan Summary: 69-year-old Bahraini-speaking female with past medical history of prior right knee replacement, hypertension, arthritis, ventral hernias, and chronic anemia who was transferred back from [facility] on 10/23/2024 s/p revision of right total knee arthroplasty, irrigation and debridement explant and static antibiotic spacer, now pending PT evaluation and rehab recommendations. #Septic joint s/p revision of right total knee arthroplasty, irrigation and debridement explant and static antibiotic spacer Patient transferred out to [facility] for surgery on 10/12/2024, transferred back to [facility] 10/23/2024. -Daily CBC, CMP -Continue ceftriaxone 2g daily with PICC line according to ID recommendations to 11/14/2024 -Wound vac to be removed tomorrow 10/25/2024 -Physical therapy evaluation- SNF rexommended. Patient and relatives currently declining, will require home health if insistent. 10/26/2024- Wound care not available today, will remove wound vac tomorrow and potentially discharge tomorrow to SNF/home with home health. 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 IVC filter placed 10/15/2024 prior to orthopedic surgery -Continue Eliquis 5 mg BID to be continued for 3 months -Outpatient referral to IR for IVC filter removal 2 weeks from placement according to [facility] discharge #Ventral hernia History of repair 2 years ago per patient. Complicated by recurrence. Per [facility] hospital course patient became symptomatic and had suspicion for SBO, resolved with bowel rest prior to proceeding with orthopedic surgery. -Outpatient referral to general surgery for ventral hernia repair -Monitor for any recurrence of SBO symptoms #History of hypertension -Resume home medications as appropriate DVT prophylaxis: Eliquis GI prophylaxis: Pantoprazole 40 mg IV daily Diet: Cardiac diet Shar[place]: None Lines: Peripheral IV Antibiotics: ceftriaxone 2g qday CODE STATUS: FULL Case was discussed with attending physician, Dr Nancy Morales MD PGY-1
[2024-10-26 16:00] VITALS: BP 102/59; PULSE 66; RESP 16; TEMP 36.2; O2SAT 96
[2024-10-26 19:59] VITALS: BP 97/55; PULSE 77; RESP 18; TEMP 36.6; O2SAT 96
[2024-10-27] VITALS: BP 98/60; PULSE 72; RESP 18; TEMP 36.5; O2SAT 94
[2024-10-27 04:00] VITALS: BP 101/57; PULSE 63; RESP 18; TEMP 36.2; O2SAT 93
[2024-10-27] MEDS: HYDROcodone/APAP 5/325 TABLET 1 TAB PO ×3 (04:15→23:02)
[2024-10-27 05:50] LABS: Basophils % (Auto) 1 % (0-2.5); Eosinophils # (Auto) 0.3 Thou/mm3 (0.0-0.5); Eosinophils % (Auto) 4 % (0-10); Hematocrit 25.4 % (36.0-46.0); Immature Granulocytes % (Auto) 1 % (0-0); Immature Granulocytes Auto 0.04 Thou/mm3 (0.00-0.00); Lymphocytes # (Auto) 1.6 Thou/mm3 (1.0-4.8); Lymphocytes % (Auto) 25 % (10-50); Mean Corpuscular HGB Conc 31.1 g/dl (31.0-37.0); Mean Corpuscular Hemoglobin 27.6 pg (25.0-35.0); Mean Corpuscular Volume 89 fL (80-100); Monocytes # (Auto) 0.6 Thou/mm3 (0.0-0.8); Monocytes % (Auto) 10 % (0-12); Neutrophils # (Auto) 3.7 Thou/mm3 (1.8-7.7); Neutrophils % (Auto) 60 % (37-80); Nucleated Red Blood Cell % 0 /100 WBC (0); Platelet Count 360 Thou/mm3 (140-440); RDW Standard Deviation 50.3 fL (36.4-46.3); Red Blood Count 2.86 Miln/mm3 (4.00-5.20); White Blood Count 6.2 Thou/mm3 (3.6-11.0)
[2024-10-27 06:01] LABS: Hemoglobin 7.9 g/dL (12.0-16.0)
[2024-10-27 06:38] LABS: Alanine Aminotransferase 11 U/L (10-49); Albumin, Serum 3.1 gm/dL (3.4-4.8); Albumin/Globulin Ratio 1.2 (1.2-2.2); Alkaline Phosphatase 129 U/L (46-116); Anion Gap 8 (7-16); Aspartate Amino Transferase 28 U/L (0-34); BUN/Creatinine Ratio 46 Ratio (12-20); Bilirubin,Total 0.2 mg/dL (0.3-1.2); Blood Urea Nitrogen 23 mg/dL (9-23); Calcium 8.9 mg/dL (8.3-10.6); Calcium (Corrected) 9.6 mg/dL (8.5-10.1); Chloride 101 mMol/L (98-107); Creatinine (Component) 0.5 mg/dL (0.6-1.3); Estimated Creatinine Clearance 87.2 mL/min (>60); Globulin 2.6 gm/dL (2.3-3.5); Glucose 84 mg/dL (74-106); Osmolality,Calculated 276 (275-295); Potassium 4.1 mMol/L (3.4-5.1); Sodium 137 mMol/L (136-145); Total Protein 5.7 gm/dL (5.7-8.2); eGFR > 60 See Note
[2024-10-27 08:00] VITALS: BP 99/54; PULSE 56; RESP 17; TEMP 36.2; O2SAT 95
[2024-10-27] MEDS: cefTRIAXone/D5w 2gm 2 GM/50 ML BAG IV (08:18)
[2024-10-27] MEDS: APIXABAN 2.5 MG TABLET 5 MG PO ×2 (08:18→20:24)
[2024-10-27 09:22] LABS: Magnesium 1.8 mg/dL (1.6-2.6)
--- NOTE | 2024-10-27 10:29 | PC.CC ---
Pt. entered into [facility], [place], operated by [facility], Spoke to Dr. Nguyen who states pt is agreeable to snf and does not need HH, will update later
--- NOTE | 2024-10-27 11:53 | PC.SS ---
Addendum entered by Shahida Ko 10/27/24 12:48: Follow up note: SS met with patient and spouse at bedside. SS used meter attendant line to discuss d/c options. Patient was presented with all facilities that accepted. Their first choice was [facility] and second was [facility]. SS pending response from facility to see availability and if they are contracted with insurance. Addendum entered by Shahida Ko 10/27/24 12:18: Patient has been accepted at: [facility], [facility], [facility]. SS will discuss with patient which is the preferred facility. We will need prior authorization Original Note: Follow up note: Patient has been referred to SNF. She is now agreeable. Patient will need once a day of i.v. antibiotics. No wound vac. PT services. D/c ready for today.
--- NOTE | 2024-10-27 11:56 | PD.RESDS ---
Planned Discharge Date 10/27/24 DS: Providers Provider Date of admission: 10/23/24 23:35 Primary care physician: Stanley Huston MD Admitting Provider: Karl Kelly MD Attending Provider on Admission: William Cruz MD Consults: 10/24/24 03:53 Referral Physical Therapy Routine Comment: Physician Instructions: Referral Wound Care Routine Comment: 10/24/24 03:54 Consult to Orthopedic Stat Comment: Transfer back from [facility] for septic knee s/p surger Consulting Provider: Randy Pascual Attending Provider on DC: Kristal Bañuelos MD Discharging Provider: Kristal Bañuelos MD Hospital Course Hospital Course Hospital course: Patient seen at bedside. No acute overnight events. She has no complaints today and only has questions about televideo visit with [facility]. Pending wound VAC removal tomorrow once wound care is available. Today, patient is unsure about whether or not she wants to the SNF or home health, is expecting her daughter back from [place] tomorrow to make that decision. She still has a PICC line in and is on IV Rocephin 2 g daily until 11/14/2024. Will need IVC filter removed as an outpatient 2 weeks from placement- 01/23/2025 as well as general surgery referral for ventral hernia Time Spent with Patient Time attestation: Total time spent providing and/or coordinating discharge services: Home Health Home Health Referral Orders: 10/27/24 09:57 Home Health Referral Routine Reason For Exam: IV antibiotics and PT Home-Bound The patient must either because of illness or injury, need the aid of supportive devices such as crutches, canes, wheelchairs, and walkers; the use of special transportation; or the assistance of another person in order to leave their place of residence; OR have a condition such that leaving his or her home is medically contraindicated. In addition, the patient also meets the following criteria: patient is normally unable to leave the home and leaving home requires considerable taxing effort. Addendum to Home Health Certification Practitioner's Certification: I certify that the patient has been under my care in the hospital and the care of attending physician (see below). We had a [id number] encounter on (see date below). My clinical findings indicate that the patient is home bound per the above criteria and the Home Health Services noted in these orders are medically necessary. The primary reason for the [id number] encounter is related to the fact that the patient requires home health services. Date Certifying [id number] Physician Encounter: 10/24/24 Physician's Name who will Assume Oversight for Services: Stanley Huston Physician's Phone No.who will Assume Oversight for Service: ELECTROPLATING WORKER - Community Resources: No PT to Evaluate: Yes PT to evaluate and provide a treatmnet plan to increase patient's mobility and strength. Wound Care: Yes Home Health RN - Wound Care Order: wound vac IV Therapy: Yes IV Medication: Rocephin IV Dose: 2 grams IV Frequency: daily IV Stop Date: 11/14/24 Discontinue PICC Line Once Treatment Complete: Yes RN Safety Evaluation: Yes RN to evaluate and create a plan of care that will produce positive outcomes. Palliative Treatment: No Palliative treatment and evaluate the need for hospice. Home Health Aide - Personal Care: No Home Health Aide to assist with any ADL's. Exam Vital Signs Temp Pulse Resp BP Pulse Ox O2 Del Method 97.2 F 56 L 17 99/54 L 95 Room Air 10/27/24 08:00 10/27/24 08:00 10/27/24 08:00 10/27/24 08:00 10/27/24 08:00 10/27/24 04:00 Discharge Plan Plan Care Plan Goals: Call [facility] Infectious disease at [phone] when patient is ready for discharge home or SNF, per Chan CANTOR from [facility], they have to follow patient for antibiotics till December 11., and will require outpatient referral to IR for IVC filter removal 2 weeks from placement that would be 10/29/2024. The patient will also need weekly renal panel, ESR and CBC as she has PICC line, and removal of PICC line after completion of IV ceftriaxone. Prescriptions/Referrals Prescriptions/Med Rec: No Action clonidine HCl 0.1 mg Tablet 0.1 mg PO BID methocarbamol 500 mg Tablet 500 mg PO BID Rx Instructions: For 30 days Filled 08/24/24 calcium carbonate [Calcium 600] 600 mg calcium (1,500 mg) Tablet 600 mg PO BID benazepril 20 mg Tablet 20 mg PO BID ibuprofen 800 mg Tablet 800 mg PO Q8H PRN (Reason: Pain) 14 Days Qty: 28 0RF acetaminophen 325 mg Tablet 650 mg PO Q6H PRN (Reason: pain and Fever >100.4) 30 Days Qty: 100 0RF ceftriaxone 2 gram recon soln 2 g IV QDAY 37 Days Qty: 37 0RF Rx Instructions: To be continued until 11/14/2024. Thank you. Referrals: Stanley Huston MD [Primary Care Provider] - Patient/Caregiver Discharge Instructions Other Discharge Activity Instructions:: 1) Right knee surgical incision (10/18- TKA with I&D. Surgical incision is closed with sutures) Preveena wound vac at 125mmgh continuous suction. 10/26/24- Remove wound vac and dressing than cleanse with Normal saline, pat dry. Cover incision with telfa and secure with tegaderm changing every 3 days and PRN 11/07/24- Remove sutures and apply steri strips than leave open to air. 2) IASD to obinna area extending through bilateral buttocks to gluteal cleft: cleanse with wound cleanser, pat dry, apply z-guard BID/PRN Print Language: Syriac Discharge Order Discharge Orders: Discharge (Routine); Ordered 10/27/24 Ordered By: Sam Pagan
[2024-10-27 12:00] VITALS: BP 96/53; PULSE 76; RESP 16; TEMP 36.7; O2SAT 96
[2024-10-27 14:42] VITALS: BMI 30.1
[2024-10-27 15:40] VITALS: BP 96/54; PULSE 76; RESP 18; TEMP 36.3; O2SAT 97
--- NOTE | 2024-10-27 19:19 | ESPR_ITS ---
Documentation for date of: 10/27/24 Subjective Subjective Interval history: 10/27/2024: Pt examined at bedside today. No overnight events for pt. Pt is wondering when she is going to be able to walk and when physical therapy is going to see her. She is also wondering about any additional interventions she is going to have. She reports no pain at this time or other complaints at this time. Exam Vital Signs Temp Pulse Resp BP Pulse Ox O2 Del Method 97.4 F 76 18 96/54 L 97 Nasal Cannula 10/27/24 15:40 10/27/24 15:40 10/27/24 15:40 10/27/24 15:40 10/27/24 15:40 10/27/24 15:40 Narrative Exam General: Awake and in no acute distress. Conversational and non-toxic appearing. Mongolian-speaking. HEENT: Normocephalic, atraumatic, mucous membranes moist. Heart: Regular rate and rhythm, no murmurs. Lungs: Clear to auscultation with no wheezing or crackles. Abdomen: Central midline scar present, ventral hernia reducible but mildy tender to palpation, positive bowel sounds. ?No guarding or rebound tenderness. Neurologic: Alert and oriented x3, no gross neurological deficit, and patient able to move all 4 extremities. Extremities: Right knee with wound vac in place and immobilizer. Warm to touch, Pain upon movement of right lower extremity. Able to move toes bilaterally. Skin: No rash or ecchymoses. Objective Labs 10/28/24 05:17 10/28/24 05:17 Labs: Laboratory Results - last 24 hr 10/27/24 04:20 WBC 6.2 RBC 2.86 L Hgb 7.9 L Hct 25.4 L MCV 89 MCH 27.6 MCHC 31.1 RDW Std Deviation 50.3 H Plt Count 360 Neut % (Auto) 60 Lymph % (Auto) 25 [place] % (Auto) 10 Eos % (Auto) 4 Baso % (Auto) 1 Neut # (Auto) 3.7 Lymph # (Auto) 1.6 [place] # (Auto) 0.6 Eos # (Auto) 0.3 Baso # (Auto) 0.0 Immature Gran # (Auto) 0.04 H Absolute Nucleated RBC 0.00 Immature Gran % 1 H Nucleated RBC % 0 Sodium 137 Potassium 4.1 Chloride 101 Carbon Dioxide 28.0 Anion Gap 8 BUN 23 Creatinine 0.5 L Estim Creat Clear Calc 87.2 eGFR > 60 BUN/Creatinine Ratio 46 H Glucose 84 Calculated Osmolality 276 Calcium 8.9 Corrected Calcium 9.6 Magnesium 1.8 Total Bilirubin 0.2 L AST 28 ALT 11 Alkaline Phosphatase 129 H D Total Protein 5.7 Albumin 3.1 L Globulin 2.6 Albumin/Globulin Ratio 1.2 Quality Measures Quality Measures VTE therapy Advance care planning discussed with:: patient Assessment & Plan Assessment Current Active Medications: Generic Name Dose Route Start Last Admin Trade Name Freq PRN Reason Stop Dose Admin Acetaminophen 650 mg 10/24/24 03:50 Acetaminophen 325 Mg Tablet PO 11/23/24 03:49 Q6H PRN Fever >100.4 or Pain 1-10 Hydrocodone Bitart/Acetaminophen 1 tab 10/24/24 04:12 10/27/24 16:47 Hydrocodone/Apap 5/325 Tablet PO 10/29/24 03:49 1 tab Q6H PRN Administration PAIN SCALE 4-10(Mod-Sev Apixaban 5 mg 10/24/24 09:00 10/27/24 08:18 Apixaban 2.5 Mg Tablet PO 11/23/24 08:59 5 mg BID OPAL Administration Ceftriaxone Sodium/Dextrose 2 gm in 50 mls @ 100 mls/hr 10/24/24 09:15 10/27/24 08:18 Rocephin/D5w 2gm IV 10/31/24 09:14 100 mls/hr QDAY OPAL Administration Ondansetron HCl 4 mg 10/24/24 03:50 Ondansetron Inj 2 Mg/Ml Inj 2 Ml IV 11/23/24 03:49 Q6H PRN NAUSEA OR VOMITING Protocol Plan Assessment 69-year-old Mongolian-speaking female with past medical history of prior right knee replacement, hypertension, arthritis, ventral hernias, and chronic anemia who was transferred back from [facility] on 10/23/2024 s/p revision of right total knee arthroplasty, irrigation and debridement explant and static antibiotic spacer, now pending PT evaluation and rehab recommendations. #Septic joint s/p revision of right total knee arthroplasty, irrigation and debridement explant and static antibiotic spacer Patient transferred out to [facility] for surgery on 10/12/2024, transferred back to [facility] 10/23/2024. -Daily CBC, CMP -Continue ceftriaxone 2g daily with PICC line according to ID recommendations to 11/14/2024 -Wound vac to be removed tomorrow 10/25/2024 -Physical therapy evaluation- SNF rexommended. Patient and relatives currently declining, will require home health if insistent. 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 IVC filter placed 10/15/2024 prior to orthopedic surgery -Continue Eliquis 5 mg BID to be continued for 3 months -Outpatient referral to IR for IVC filter removal 2 weeks from placement according to [facility] discharge #Ventral hernia History of repair 2 years ago per patient. Complicated by recurrence. Per [facility] hospital course patient became symptomatic and had suspicion for SBO, resolved with bowel rest prior to proceeding with orthopedic surgery. -Outpatient referral to general surgery for ventral hernia repair -Monitor for any recurrence of SBO symptoms #History of hypertension -Resume home medications as appropriate #Health Maintenance Disposition: Med Surg DVT prophylaxis: Eliquis GI prophylaxis:Protonix 40 Diet: Cardiac CODE STATUS:Full Patient seen and care discussed with my senior resident, Dr. Pagan, and my attending physician, Dr. Nancy Bañuelos, PGY-1 L Patient is a 69-year-old Mongolian-speaking female with past medical history of prior right knee replacement, who was transferred back from [facility] on 10/23/2024 after revision of right total knee arthroplasty and debridement. Sh ehas been on IV antibiotics. As per ID recommendations, patient will need to continue IV Rocephin until Nov 14, 2024. Patient has been afebrile during this hospitalization course, WBC has been within normal limits. Pain is well controlled. Patient worked with physical therapy in the hospital and recommendations were for intermediate placement. Patient initially declined SNF however after appropriate counseling, she agrees to go to SNF. Dispo: will DC in 24 hours. Patient examined and case discussed with the team including attending physician. Note reviewed, I agree with the care plan as documented. - Sam Pagan MD, PGY 2
[2024-10-27 20:00] VITALS: BP 103/57; PULSE 84; RESP 17; TEMP 36.6; O2SAT 98
[2024-10-28] VITALS: BP 91/58; PULSE 69; RESP 17; TEMP 36.6; O2SAT 95
[2024-10-28 04:00] VITALS: BP 101/54; PULSE 66; RESP 18; TEMP 36.7; O2SAT 97
[2024-10-28 06:17] LABS: Basophils # (Auto) 0.1 Thou/mm3 (0.0-0.2); Basophils % (Auto) 1 % (0-2.5); Eosinophils # (Auto) 0.3 Thou/mm3 (0.0-0.5); Eosinophils % (Auto) 4 % (0-10); Hematocrit 25.7 % (36.0-46.0); Immature Granulocytes % (Auto) 0 % (0-0); Immature Granulocytes Auto 0.03 Thou/mm3 (0.00-0.00); Lymphocytes % (Auto) 27 % (10-50); Mean Corpuscular HGB Conc 31.1 g/dl (31.0-37.0); Mean Corpuscular Hemoglobin 27.7 pg (25.0-35.0); Mean Corpuscular Volume 89 fL (80-100); Monocytes # (Auto) 0.6 Thou/mm3 (0.0-0.8); Monocytes % (Auto) 8 % (0-12); Neutrophils # (Auto) 4.5 Thou/mm3 (1.8-7.7); Neutrophils % (Auto) 60 % (37-80); Nucleated Red Blood Cell % 0 /100 WBC (0); Platelet Count 380 Thou/mm3 (140-440); RDW Standard Deviation 50.8 fL (36.4-46.3); Red Blood Count 2.89 Miln/mm3 (4.00-5.20); White Blood Count 7.4 Thou/mm3 (3.6-11.0)
[2024-10-28 06:53] LABS: Alanine Aminotransferase 14 U/L (10-49); Albumin, Serum 3.3 gm/dL (3.4-4.8); Albumin/Globulin Ratio 1.2 (1.2-2.2); Alkaline Phosphatase 125 U/L (46-116); Anion Gap 7 (7-16); Aspartate Amino Transferase 31 U/L (0-34); BUN/Creatinine Ratio 53 Ratio (12-20); Bilirubin,Total 0.3 mg/dL (0.3-1.2); Blood Urea Nitrogen 21 mg/dL (9-23); Calcium 9.2 mg/dL (8.3-10.6); Calcium (Corrected) 9.8 mg/dL (8.5-10.1); Carbon Dioxide 28.3 mMol/L (20.0-31.0); Chloride 103 mMol/L (98-107); Creatinine (Component) 0.4 mg/dL (0.6-1.3); Globulin 2.7 gm/dL (2.3-3.5); Glucose 79 mg/dL (74-106); Osmolality,Calculated 277 (275-295); Potassium 4.1 mMol/L (3.4-5.1); Sodium 138 mMol/L (136-145); eGFR > 60 See Note
[2024-10-28 08:00] VITALS: BP 97/58; PULSE 61; RESP 17; TEMP 36.2; O2SAT 96
[2024-10-28] MEDS: cefTRIAXone/D5w 2gm 2 GM/50 ML BAG IV (09:20)
[2024-10-28] MEDS: APIXABAN 2.5 MG TABLET 5 MG PO ×2 (09:20→21:35)
[2024-10-28] MEDS: HYDROcodone/APAP 5/325 TABLET 1 TAB PO ×2 (09:27→21:40)
[2024-10-28 12:00] VITALS: BP 98/57; PULSE 68; RESP 16; TEMP 36.3; O2SAT 93
--- NOTE | 2024-10-28 15:14 | PC.SS ---
Addendum entered and electronically signed by Anabella Leung [facility] 10/28/24 16:09: Notified by Dr. Pagna that discharge is cancelled; patient to stay for IVC filter removal tomorrow and discharge after. Cancelled [facility] transport. Original Note: Follow up note: Patient has d/c orders for today. SS coordinated with Naila @ [facility] and they have authorization. Patient will d/c for i.v. antibiotics and PT services at facility. SS set up through [facility] transport for roller picker of 4p.m. Patient's insurance does not cover due to it being cancelled. Nursing aware of d/c time. Patient aware.
--- NOTE | 2024-10-28 15:40 | PC.NURSE ---
Gave report to Aroldo at [facility]
--- NOTE | 2024-10-28 15:49 | PC.NURSE ---
NOTIFIED [facility] ABOUT PATIENT DISCHARGING TO [facility] AND PHONE NUMBER.WILL CONTINUE TO MONITOR PATIENT.
[2024-10-28 16:00] VITALS: BP 128/74; PULSE 81; RESP 18; TEMP 36.6; O2SAT 95
--- NOTE | 2024-10-28 16:06 | PD.RESDS ---
Planned Discharge Date 10/28/24 DS: Providers Provider Date of admission: 10/23/24 23:35 Primary care physician: Stanley Huston MD Admitting Provider: Karl Kelly MD Attending Provider on Admission: William Cruz MD Consults: 10/24/24 03:53 Referral Physical Therapy Routine Comment: Physician Instructions: Referral Wound Care Routine Comment: 10/24/24 03:54 Consult to Orthopedic Stat Comment: Transfer back from [facility] for septic knee s/p surger Consulting Provider: Randy Pascual Attending Provider on DC: Yakov Morales MD Discharging Provider: Yakov Morales MD DS: Diagnosis Problem List Completed Was Problem List Reviewed/Reconciled?: Yes Hospital Course Hospital Course Hospital course: The patient is a 69-year-old Samoan-speaking female with past medical history of prior right knee replacement, hypertension, arthritis, ventral hernias, and chronic anemia who was transferred back from [facility] on 10/23/2024 s/p revision of right total knee arthroplasty, irrigation and debridement explant and static antibiotic spacer. 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 Surgery was done at [facility] by Dr. Joaquín Maldonado. Prior to the surgery patient was found to have a left lower extremity DVT on US doppler, due to risk of bleeding with the required procedure, decision was made to have IVC filter placed pre-op on 10/15. Postoperatively patient was eventually transitioned to Eliquis 5 mg BID to be taken for next 3 months. Patient is to have IVC filter removed within next 2 weeks via IR (10/29/2024). Patient also had wound VAC to remain in place for 7 days which was removed on 10/27/2024. Additionally, she was continued on antibiotic Rocephin 2 g daily to be completed 6 weeks after surgery per ID recommendations (11/14/2024). During this admission, patient was noted to have borderline low blood pressure and on discharge, added midodrine 5 mg 3 times daily with parameters. As she is unlikely to require antihypertensives, her current medications have been stopped. She is clinically stable has been afebrile since admission and cleared for discharge but she will continue rehabilitation until her to next appointment with [facility] for surgery to be scheduled. She is recommended to follow-up with the primary care provider within 1 week of discharge as well as [facility] for scheduled appointments. #Septic joint status post revision of right total knee arthroplasty, I&D explant and static antibiotic spacer #Left lower extremity occlusive DVT status post IVC filter #Ventral hernia #History of hypertension Discharge instructions: Follow up with PCP within one week of discharge Continue IV Rocephin via PICC line until 11/14/2024 Take midodrine 5mg three times daily if SBP<90 Hold all antihypertensives until follow up with PCP Follow wound care instructions as explained below: 1) Right knee surgical incision (10/18- TKA with I&D. Surgical incision is closed with sutures) Preveena wound vac at 125mmgh continuous suction. 11/07/24- Remove sutures and apply steri strips than leave open to air. 2) IASD to obinna area extending through bilateral buttocks to gluteal cleft: cleanse with wound cleanser, pat dry, apply z-guard BID/PRN Case was discussed with Dr Pagan PGY-2 and attending physician, Dr Nancy Morales MD PGY-1 Status at Discharge Overall status at discharge: patient is progressing back to baseline Time Spent with Patient Time attestation: Total time spent providing and/or coordinating discharge services: Time spent: Greater than 30 minutes Home Health Home Health Referral Orders: 10/27/24 09:57 Home Health Referral Routine Reason For Exam: IV antibiotics and PT Home-Bound The patient must either because of illness or injury, need the aid of supportive devices such as crutches, canes, wheelchairs, and walkers; the use of special transportation; or the assistance of another person in order to leave their place of residence; OR have a condition such that leaving his or her home is medically contraindicated. In addition, the patient also meets the following criteria: patient is normally unable to leave the home and leaving home requires considerable taxing effort. Addendum to Home Health Certification Practitioner's Certification: I certify that the patient has been under my care in the hospital and the care of attending physician (see below). We had a [id number] encounter on (see date below). My clinical findings indicate that the patient is home bound per the above criteria and the Home Health Services noted in these orders are medically necessary. The primary reason for the dtmg-[id number] encounter is related to the fact that the patient requires home health services. Date Certifying Lgfk-wr-Hzgm Physician Encounter: 10/24/24 Physician's Name who will Assume Oversight for Services: Stanley Huston Physician's Phone No.who will Assume Oversight for Service: MILK BOTTLER - Community Resources: No PT to Evaluate: Yes PT to evaluate and provide a treatmnet plan to increase patient's mobility and strength. Wound Care: Yes Home Health RN - Wound Care Order: wound vac IV Therapy: Yes IV Medication: Rocephin IV Dose: 2 grams IV Frequency: daily IV Stop Date: 11/14/24 Discontinue PICC Line Once Treatment Complete: Yes RN Safety Evaluation: Yes RN to evaluate and create a plan of care that will produce positive outcomes. Palliative Treatment: No Palliative treatment and evaluate the need for hospice. Home Health Aide - Personal Care: No Home Health Aide to assist with any ADL's. Exam Vital Signs Temp Pulse Resp BP Pulse Ox O2 Del Method 97.3 F 68 16 98/57 L 93 L Room Air 10/28/24 12:00 10/28/24 12:10/28/24 12:10/28/24 12:10/28/24 12:10/28/24 12:00 Narrative Exam General: Awake and in no acute distress. Conversational and non-toxic appearing. Samoan-speaking. HEENT: Normocephalic, atraumatic, mucous membranes moist. Heart: Regular rate and rhythm, no murmurs. Lungs: Clear to auscultation with no wheezing or crackles. Abdomen: Central midline scar present, ventral hernia reducible but mildy tender to palpation, positive bowel sounds. ?No guarding or rebound tenderness. Neurologic: Alert and oriented x3, no gross neurological deficit, and patient able to move all 4 extremities. Extremities: Right knee Warm to touch, Pain upon movement of right lower extremity. Able to move toes bilaterally. Skin: No rash or ecchymoses. Discharge Plan Plan Patient Disposition: Xfer Skilled Nsg Fac (SNF) Care Plan Goals: Call [facility] Infectious disease at [phone] when patient is ready for discharge home or SNF, per Chan CANTOR from [facility], they have to follow patient for antibiotics till December 11., and will require outpatient referral to IR for IVC filter removal 2 weeks from placement that would be 10/29/2024. The patient will also need weekly renal panel, ESR and CBC as she has PICC line, and removal of PICC line after completion of IV ceftriaxone. Prescriptions/Referrals Prescriptions/Med Rec: New midodrine 5 mg tablet 5 mg PO TID PRN (Reason: For SBP<90) 30 Days Qty: 60 0RF Rx Instructions: do not give last dose of day after 6PM or within 4 hrs of bedtime Continued methocarbamol 500 mg Tablet 500 mg PO BID Rx Instructions: For 30 days Filled 08/24/24 calcium carbonate [Calcium 600] 600 mg calcium (1,500 mg) Tablet 600 mg PO BID ibuprofen 800 mg Tablet 800 mg PO Q8H PRN (Reason: Pain) 14 Days Qty: 28 0RF acetaminophen 325 mg Tablet 650 mg PO Q6H PRN (Reason: pain and Fever >100.4) 30 Days Qty: 100 0RF ceftriaxone 2 gram recon soln 2 g IV QDAY 37 Days Qty: 37 0RF Rx Instructions: To be continued until 11/14/2024. Thank you. Discontinued clonidine HCl 0.1 mg Tablet 0.1 mg PO BID benazepril 20 mg Tablet 20 mg PO BID Referrals: Stanley Huston MD [Primary Care Provider] - Patient/Caregiver Discharge Instructions Other Discharge Activity Instructions:: Follow up with PCP within one week of discharge Continue IV Rocephin via PICC line until 11/14/2024 Take midodrine 5mg three times daily if SBP<90 Hold all antihypertensives until follow up with PCP 1) Right knee surgical incision (10/18- TKA with I&D. Surgical incision is closed with sutures) Preveena wound vac at 125mmgh continuous suction. 10/26/24- Remove wound vac and dressing than cleanse with Normal saline, pat dry. Cover incision with telfa and secure with tegaderm changing every 3 days and PRN 11/07/24- Remove sutures and apply steri strips than leave open to air. 2) IASD to obinna area extending through bilateral buttocks to gluteal cleft: cleanse with wound cleanser, pat dry, apply z-guard BID/PRN Print Language: Samoan Stand Alone Forms: [employer] Award Info., Patient Portal Info Letter Quality Discharge Quality Measures VTE prophylaxis
--- NOTE | 2024-10-28 16:24 | PC.NURSE ---
PATIENT WILL NOT BE DISCHARGING TODAY. IVC FILTER NEEDS TO BE REMOVED BEFORE DISCHARGE. PATIENT WILL BE NPO AFTER MIDNIGHT AND FILTER WILL BE REMOVED 10/29/2024. WILL CONTINUE TO MONITOR PATIENT.
[2024-10-28 20:00] VITALS: BP 111/69; PULSE 80; RESP 18; TEMP 36.6; O2SAT 96
[2024-10-29] VITALS: BP 98/53; PULSE 61; RESP 18; TEMP 36.4; O2SAT 98
[2024-10-29 04:00] VITALS: BP 110/66; PULSE 57; RESP 16; TEMP 36.4; O2SAT 97
[2024-10-29 05:47] LABS: Basophils # (Auto) 0.1 Thou/mm3 (0.0-0.2); Basophils % (Auto) 1 % (0-2.5); Eosinophils # (Auto) 0.3 Thou/mm3 (0.0-0.5); Eosinophils % (Auto) 4 % (0-10); Immature Granulocytes % (Auto) 0 % (0-0); Immature Granulocytes Auto 0.03 Thou/mm3 (0.00-0.00); Lymphocytes # (Auto) 2.3 Thou/mm3 (1.0-4.8); Lymphocytes % (Auto) 33 % (10-50); Mean Corpuscular HGB Conc 31.2 g/dl (31.0-37.0); Mean Corpuscular Hemoglobin 28.2 pg (25.0-35.0); Mean Corpuscular Volume 91 fL (80-100); Monocytes # (Auto) 0.7 Thou/mm3 (0.0-0.8); Monocytes % (Auto) 10 % (0-12); Neutrophils # (Auto) 3.4 Thou/mm3 (1.8-7.7); Neutrophils % (Auto) 51 % (37-80); Nucleated Red Blood Cell % 0 /100 WBC (0); Platelet Count 380 Thou/mm3 (140-440); RDW Standard Deviation 50.8 fL (36.4-46.3); Red Blood Count 2.41 Miln/mm3 (4.00-5.20); White Blood Count 6.8 Thou/mm3 (3.6-11.0)
[2024-10-29 05:51] LABS: Hematocrit 21.8 % (36.0-46.0); Hemoglobin 6.8 g/dL (12.0-16.0)
[2024-10-29 06:05] LABS: Prothrombin Time 11.3 Seconds (9.0-12.2)
[2024-10-29 06:33] LABS: Alanine Aminotransferase 18 U/L (10-49); Albumin, Serum 3.2 gm/dL (3.4-4.8); Albumin/Globulin Ratio 1.2 (1.2-2.2); Alkaline Phosphatase 128 U/L (46-116); Anion Gap 7 (7-16); Aspartate Amino Transferase 32 U/L (0-34); BUN/Creatinine Ratio 63 Ratio (12-20); Bilirubin,Total 0.2 mg/dL (0.3-1.2); Blood Urea Nitrogen 25 mg/dL (9-23); Calcium 8.9 mg/dL (8.3-10.6); Calcium (Corrected) 9.5 mg/dL (8.5-10.1); Carbon Dioxide 28.2 mMol/L (20.0-31.0); Chloride 103 mMol/L (98-107); Creatinine (Component) 0.4 mg/dL (0.6-1.3); Globulin 2.7 gm/dL (2.3-3.5); Glucose 81 mg/dL (74-106); Osmolality,Calculated 279 (275-295); Potassium 4.2 mMol/L (3.4-5.1); Sodium 138 mMol/L (136-145); Total Protein 5.9 gm/dL (5.7-8.2); eGFR > 60 See Note
[2024-10-29 07:34] LABS: Hematocrit 24.8 % (36.0-46.0)
--- NOTE | 2024-10-29 07:59 | PC.NURSE ---
[facility] notifies me they do not do IVC filter removal it would have to be done by surgery. Will continue to monitor patient.
[2024-10-29 08:00] VITALS: BP 125/63; PULSE 59; RESP 16; TEMP 36.2; O2SAT 97
[2024-10-29 08:13] LABS: Hemoglobin 7.7 g/dL (12.0-16.0)
[2024-10-29] MEDS: cefTRIAXone/D5w 2gm 2 GM/50 ML BAG IV (08:24)
[2024-10-29 11:05] VITALS: BMI 15.0
[2024-10-29 11:10] LABS: Path Review Blood Smear Sent to Pathologist
[2024-10-29 12:00] VITALS: BP 122/74; PULSE 60; RESP 17; TEMP 36.6; O2SAT 97
--- NOTE | 2024-10-29 14:27 | PC.NURSE ---
Discharge orders have been in since 11:39 by doctor Andrew. Patient was under my care yesterday and DC was cancelled due to IVC removal that was going to be done today. This morning IR contacted me and notified me IR does not do IVC removals. IVC removal should be done by surgery. Patient is not NPO anymore and ate lunch. I called [employer] social service agency director and she notified me she was going to call doctors and see if patient is going to DC today or not. PT evaluated patient and she can only stand at bedside. patient could not walk due to non bearing weight to left extremity. Will continue to monitor patient.
--- NOTE | 2024-10-29 15:12 | ESDS_ITS ---
<Statement entered by Sam Pagan MD - 10/29/24 15:56> Patient was examined with the team including attending physician. Note reviewed, I agree with the discharge plan as documented. - Sam Pagan M.D. PGY2 Planned Discharge Date 10/29/24 DS: Providers Provider Date of admission: 10/23/24 23:35 Primary care physician: Stanley Huston MD Admitting Provider: Karl Kelly MD Attending Provider on Admission: Angel Goddard MD Consults: 10/24/24 03:53 Referral Physical Therapy Routine Comment: Physician Instructions: Referral Wound Care Routine Comment: 10/24/24 03:54 Consult to Orthopedic Stat Comment: Transfer back from [facility] for septic knee s/p surger Consulting Provider: Randy Pascual Attending Provider on DC: Yakov Morales MD Discharging Provider: Yakov Morales MD DS: Diagnosis Problem List Completed Was Problem List Reviewed/Reconciled?: Yes Hospital Course Hospital Course Hospital course: The patient is a 69-year-old Citizen Of [place]-speaking female with past medical history of prior right knee replacement, hypertension, arthritis, ventral hernias, and chronic anemia who was transferred back from [facility] on 10/23/2024 s/p revision of right total knee arthroplasty, irrigation and debridement explant and static antibiotic spacer. 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 Surgery was done at [facility] by Dr. Joaquín Maldonado. Prior to the surgery patient was found to have a left lower extremity DVT on US doppler, due to risk of bleeding with the required procedure, decision was made to have IVC filter placed pre-op on 10/15. Postoperatively patient was eventually transitioned to Eliquis 5 mg BID to be taken for next 3 months. Patient is to have IVC filter removed within next 2 weeks via IR (10/29/2024). Patient also had wound VAC to remain in place for 7 days which was removed on 10/27/2024. Additionally, she was continued on antibiotic Rocephin 2 g daily to be completed 6 weeks after surgery per ID recommendations (11/14/2024). We considered removing IVC filter prior to discharge based on instructions from [facility] to remove two weeks after placement, however, interventional radiologist at this facility does not perform this procedure. During this admission, patient was noted to have borderline low blood pressure and on discharge, added midodrine 5 mg 3 times daily with parameters. As she is unlikely to require antihypertensives, her current medications have been stopped. She is clinically stable has been afebrile since admission and cleared for discharge but she will continue rehabilitation until her to next appointment with [facility] for surgery to be scheduled. She is recommended to follow-up with the primary care provider within 1 week of discharge as well as [facility] for scheduled appointments. #Septic joint status post revision of right total knee arthroplasty, I&D explant and static antibiotic spacer #Left lower extremity occlusive DVT status post IVC filter #Ventral hernia #History of hypertension Discharge instructions: Follow up with PCP within one week of discharge Continue IV Rocephin via PICC line until 11/14/2024 Take midodrine 5mg three times daily if SBP<90 Hold all antihypertensives until follow up with PCP You will require outpatient IR referral from your PCP for removal of IVC filter Follow wound care instructions as explained below: 1) Right knee surgical incision (10/18- TKA with I&D. Surgical incision is closed with sutures) Preveena wound vac at 125mmgh continuous suction. 11/07/24- Remove sutures and apply steri strips than leave open to air. 2) IASD to obinna area extending through bilateral buttocks to gluteal cleft: cleanse with wound cleanser, pat dry, apply z-guard BID/PRN Case was discussed with Dr Pagan PGY-2 and attending physician, Dr Nitza Morales MD PGY-1 Time Spent with Patient Time attestation: Total time spent providing and/or coordinating discharge services: Exam Vital Signs Temp Pulse Resp BP Pulse Ox O2 Del Method 97.8 F 60 17 122/74 97 Room Air 10/29/24 12:10/29/24 12:10/29/24 12:00 10/29/24 12:10/29/24 12:10/29/24 12:00 Narrative Exam General: Awake and in no acute distress. Conversational and non-toxic appearing. Citizen Of [place]-speaking. HEENT: Normocephalic, atraumatic, mucous membranes moist. Heart: Regular rate and rhythm, no murmurs. Lungs: Clear to auscultation with no wheezing or crackles. Abdomen: Central midline scar present, ventral hernia reducible but mildy tender to palpation, positive bowel sounds. ?No guarding or rebound tenderness. Neurologic: Alert and oriented x3, no gross neurological deficit, and patient able to move all 4 extremities. Extremities: Right knee Warm to touch, Pain upon movement of right lower extremity. Able to move toes bilaterally. Skin: No rash or ecchymoses. Discharge Plan Plan Patient Disposition: Xfer Skilled Nsg Fac (SNF) Care Plan Goals: Call [facility] Infectious disease at [phone] when patient is ready for discharge home or SNF, per Chan CANTOR from [facility], they have to follow patient for antibiotics till December 11., and will require outpatient referral to IR for IVC filter removal 2 weeks from placement that would be 10/29/2024. The patient will also need weekly renal panel, ESR and CBC as she has PICC line, and removal of PICC line after completion of IV ceftriaxone. Prescriptions/Referrals Prescriptions/Med Rec: New midodrine 5 mg tablet 5 mg PO TID PRN (Reason: For SBP<90) 30 Days Qty: 60 0RF Rx Instructions: do not give last dose of day after 6PM or within 4 hrs of bedtime B complex [id number]-[id number]-biot-zinc [id number] ki-[id number]-[id number]-mg tablet 1 tab PO QDAY Qty: 30 0RF Rx Instructions: administer with a meal ferrous fumarate 325 mg (106 mg iron) tablet 325 mg PO Q OTHER DAY Qty: 30 0RF Eliquis 2.5 mg Tablet 5 mg PO BID 30 Days Qty: 120 0RF Continued methocarbamol 500 mg Tablet 500 mg PO BID Rx Instructions: For 30 days Filled 08/24/24 calcium carbonate [Calcium 600] 600 mg calcium (1,500 mg) Tablet 600 mg PO BID ibuprofen 800 mg Tablet 800 mg PO Q8H PRN (Reason: Pain) 14 Days Qty: 28 0RF acetaminophen 325 mg Tablet 650 mg PO Q6H PRN (Reason: pain and Fever >100.4) 30 Days Qty: 100 0RF ceftriaxone 2 gram recon soln 2 g IV QDAY 37 Days Qty: 37 0RF Rx Instructions: To be continued until 11/14/2024. Thank you. Discontinued clonidine HCl 0.1 mg Tablet 0.1 mg PO BID benazepril 20 mg Tablet 20 mg PO BID Referrals: Stanley Huston MD [Primary Care Provider] - Patient/Caregiver Discharge Instructions Other Discharge Activity Instructions:: Follow up with PCP within one week of discharge Continue IV Rocephin via PICC line until 11/14/2024 Take ferrous and vitamin B12 supplements Take midodrine 5mg three times daily if SBP<90 Hold all antihypertensives until follow up with PCP Ensure to monitor Hemoglobin levels You will require weekly labs including a rewnal panel, ESR and CBC while on antibiotics You will require an outpatient IR referral for IVC filter removal 1) Right knee surgical incision (10/18- TKA with I&D. Surgical incision is closed with sutures) Preveena wound vac at 125mmgh continuous suction. 11/07/24- Remove sutures and apply steri strips than leave open to air. 2) IASD to obinna area extending through bilateral buttocks to gluteal cleft: cleanse with wound cleanser, pat dry, apply z-guard BID/PRN Education Materials: IVC Filter Placement Tx Print Language: Citizen Of [place] Stand Alone Forms: [employer] Award Info., Patient Portal Info Letter Discharge Order Discharge Orders: Discharge (Routine); Ordered 10/29/24 Ordered By: Yakov Morales Quality Discharge Quality Measures VTE prophylaxis Attestestation MD Attestation I reviewed labs, imaging, EKG, home medications and prior available records. Face to face evaluation was performed by me. I have personally examined the patient and discussed assessment and plan with the IM team. I reviewed the resident note and agree with the plan with exceptions as below. 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 Transferred back from [facility]. Will discharge on IV ceftriaxone via PICC line. Follow-up with orth opedic surgery as outpatient Left lower extremity DVT: Status post IVC filter. Okay to resume Eliquis. Could not remove the IVC filter as an patient. Remove as outpatient. Time spent is 40 minutes. More than 50% of the time was spent on patient education and coordination of care. Essential hypertension: Discontinued her antihypertensive treatment. Monitor BP as outpatient Time spent is 40 minutes. More than 50% of the time was spent on patient education and coordination of care.
[2024-10-29 16:00] VITALS: BP 102/59; PULSE 68; RESP 17; TEMP 36.3; O2SAT 95
--- NOTE | 2024-10-29 16:40 | PC.NURSE ---
Nicolasa going to [facility] will call and give report. [employer] social services assistant just notified me product picker is at 17:30
--- NOTE | 2024-10-29 17:03 | PC.NURSE ---
Daughter is at bedside wants to speak to doctor about patients discharge. Called Dr. Lopez and she will be coming to talk to daughter and patient at bedside. Will continue to monitor patient.
--- NOTE | 2024-10-29 17:16 | PC.NURSE ---
doctor came to bedside and talked to patients daughter all questions were answered.
--- NOTE | 2024-10-29 18:18 | PC.NURSE ---
GAVE REPORT TO ANALY AT [facility]
== END 2024-10-29 19:05 | disposition skilled nursing facility (03) | DRG 560 ==
PROVIDERS: Student in an Organized Health Care Education/Training Program; Admitting Provider Internal Medicine; PCP Family Medicine; Visit Provider Student in an Organized Health Care Education/Training Program
DX: T84.53XA Infection and inflammatory reaction due to internal right knee prosthesis, initial encounter (principal); M00.9 Pyogenic arthritis, unspecified; M19.90 Unspecified osteoarthritis, unspecified site; I10 Essential (primary) hypertension; K43.9 Ventral hernia without obstruction or gangrene; Z60.3 Acculturation difficulty; Z86.718 Personal history of other venous thrombosis and embolism; Z95.828 Presence of other vascular implants and grafts; Z96.651 Presence of right artificial knee joint; Z79.899 Other long term (current) drug therapy; Z79.01 Long term (current) use of anticoagulants; Y83.8 Other surgical procedures as the cause of abnormal reaction of the patient, or of later complication, without mention of misadventure at the time of the procedure
CPT/HCPCS: 36415; 80053; 83735; 84100; 85014; 85018; 85025; 85610; 85730; 86850; 86900; 86901; 86923; 87081; 93225; 97162; J0696; A9270

== ENCOUNTER → 2025-07-08 | Outpatient (CLI) | payer MEDICARE, MEDICAID, SELFPAY ==
--- NOTE | 2025-07-08 14:29 | XR_ITS ---
EXAMINATION: Left knee 2 views TECHNIQUE: AP lateral left knee 2 views Date and time: July 08, 2025, 1448 hours INDICATIONS: Left knee pain several years FINDINGS: Advanced tricompartment osteoarthritis. Severe osteopenia. Moderate knee effusion. No fracture. IMPRESSION: Advanced tricompartment osteoarthritis
== END | disposition home or self-care (01) ==
LOC: CDIM 14:19
PROVIDERS: PCP Family Medicine; Referring Provider Family Medicine; Visit Provider Family Medicine
DX: M17.12 Unilateral primary osteoarthritis, left knee (principal)
CPT/HCPCS: 73560